=== PATIENT | male | born 1955 | race Caucasian/White ===

== ENCOUNTER 2022-07-28 12:47 | Outpatient (REF) | payer MEDICARE, SELFPAY ==
--- NOTE | ~2022-07-28 | XR_ITS ---
EXAMINATION: XR CHEST CLINICAL INFORMATION: Shortness breath COMPARISON: None TECHNIQUE: 2 views of the chest were obtained. FINDINGS: No significant abnormality is noted involving the heart, lungs, mediastinum, bony thorax or soft tissues. XR/XR chest 2V IMPRESSION: No acute disease.
== END 2022-07-28 12:48 | disposition home or self-care (01) ==
LOC: HO.XRAY 12:47
PROVIDERS: Visit Provider Emergency Medicine
DX: R06.02 Shortness of breath (principal)
CPT/HCPCS: 71046

== ENCOUNTER → 2022-08-24 09:12 | Outpatient (REF) | payer MEDICARE, SELFPAY ==
--- NOTE | 2022-08-24 09:18 | CA_ITS ---
Transthoracic Echocardiogram Patient (Last, First, Middle): Rafa Hamlin F Gender: Male Date of : 1955 Age: 66 Procedure Date: 08/24/2022 Procedure Type: Transthoracic Echocardiogram Location: OP Height: 177.8 cm Weight: 95.26 kg BSA: 2.13 m2 Heart Rate: 60 bpm BP: 132 / 80 mmHg Linseed Oil Order Filler: SB Referring MD: Katarzyna Wakefield NP Symptoms: SOB Study Quality: Adequate w contrast ECG Rhythm: Sinus Conclusions: - The left ventricular systolic function is normal. The visually estimated ejection fraction is between 65-70%. - No obvious valvular pathology seen on this study. Findings Procedure Information Contrast agent, definity, is being given per protocol without apparent complications. Left Ventricle Normal left ventricular cavity size. The left ventricular systolic function is normal. The visually estimated ejection fraction is between 65-70%. There is no evidence of regional wall motion abnormalities. Diastolic function is normal for age. There is mild septal and mild basal asymmetric hypertrophy. Right Ventricle Normal right ventricular cavity size and systolic function. Atria Both atria are normal in size. Aortic Valve There is a normal trileaflet aortic valve. There is no aortic valve stenosis. There is no aortic valve regurgitation. Mitral Valve The mitral valve appears normal. There is no mitral valve regurgitation. There is no mitral valve stenosis. Pulmonic Valve The pulmonic valve is likely normal. Tricuspid Valve Normal tricuspid valve structure. There is trace tricuspid valve regurgitation. There is no evidence of pulmonary hypertension. Great Vessels The asc aorta is normal in size. Venous The inferior vena cava was not well visualized. Possibly normal size/ respiratory variation. Pericardium/Pleural There is no evidence of pericardial effusion. Prior Study Comparison No prior study available for comparison. Recommendations, Care & Conclusions No obvious valvular pathology seen on this study. Measurements 2D Linear Measurements IVSd: 1.29 0.6-0.9/0.6-1.0 cm LVIDd: 4.36 3.9-5.3/4.2-5.9 cm LVIDd Index: 2.05 2.4-3.2/2.2-3.1 cm/m2 LVIDs: 2.78 2.0-3.6 cm LVPWd: 0.86 0.7-1.1 cm LA Diam: 3.60 2.7-3.8/3.0-4.0 cm LAIDs Index: 1.69 1.5-2.3 cm/m2 LV Mass: 200.47 67-162/88-224 g LV Mass Index: 94.12 43-95/49-115 g/m2 LVOT Diam: 2.10 3.0+(-)1.3 cm 2D Systolic Function EF 4C: 79.80 >55% EF 2C: 73.40 >55% EF BiP: 76.60 >55% Mitral Valve MV Pk E: 0.67 MV PK A: 0.84 MV Decel Time: 274.00 E/A: 0.80 E'Lateral: 8.38 E'Medial: 7.40 E/E' Med: 9.10 E/E' Lat: 8.00 PHT: 80.00 MVA PHT: 2.75 Decel [place]: 2.46 Aortic Valve AoV Pk Kike: 1.25 AoV Mn Kike: 0.80 AoV VTI: 0.24 AoV Pk Grad: 6.00 Aov Mn Grad: 3.00 COLE Cont.VTI: 2.64 LVOT LVOT Pk Kike: 0.91 LVOT Mn Kike: 0.62 LVOT VTI: 0.18 LVOT Pk Grad: 3.00 LVOT Mn Grad: 2.00 LVOT Diam: 2.10 LVOT Area: 3.46 Diastolic Function MV Pk E: 0.67 MV Pk A: 0.84 E/A: 0.80 E'Medial: 7.40 E/E' Med: 9.10 E' Laterial: 8.38 E/E' Lat: 8.00 Right Ventricle TAPSE (mm): 19.40 TVS' Kike: 13.70 Tricuspid Valve RA Press: 3.00 Great Vessels Aorta Sinus of Valsalva: 3.20 2.0-3.5 cm Ao Asc: 2.90 2.1-3.4 cm Pulmonary Veins Pulm Vein S/D 1.90 Pulmonary Valve PV Pk Kike: 1.14 Peak PV Grad: 5.00 Updated in Other Vendor System with Status of Final Chuck Osuna MD electronically signed on 08/24/2022 5:34:46 PM with status of Final
== END ==
LOC: HO.CARD 09:12
PROVIDERS: Visit Provider Emergency Medicine
DX: R06.02 Shortness of breath (principal)
CPT/HCPCS: 93306; Q9957

== ENCOUNTER 2024-01-30 11:24 | Outpatient (AMB) | payer MEDICARE, SELFPAY ==
--- NOTE | 2024-01-30 11:30 | A.OFFVIS_ITS ---
Intake Vital Signs 01/30/24 11:52 Height 5 ft 10 in Weight 209 lb BMI 30.0 BP 130/70 Blood Pressure Location Lt brachial Position Sitting Pulse 76 Pulse Source Pulse Oximeter Pulse Oximetry (%) 96 Oxygen Delivery Method Room Air Intake Visit Reasons: NPV-Insomnia - CONF w/ address Intake Note: Patient presets for Insomnia. Waking up during the night and acting out dreams. Snoring and gasping for air. Allergies No Known Allergies Allergy (Verified 01/30/24 11:35) HPI HPI Comments History of Present Illness Details 68 y/o male patient presents for new in- person visit for sleep consultation. Pt reports difficulty staying sleep. He does not have difficulty falling asleep, but wakes up almost every hour. He also reports he is acting out dreams, kicking and can get bruise from kicking. Pt reports loud snoring, gasping, and witnessed apnea spells. Sleep questionnaire: Have you ever been diagnosed with a sleep disorder? No. Have you ever had a sleep study in the past? No. Have you ever been treated for a sleep disorder? No. Do you take medications for a sleep disorder? No. Do you snore? Yes. Do you wake up gasping at night? Yes. Do you have episodes of apneas? Yes. If yes, are they witnessed? Yes. Do you have episodes of nocturnal chest pain or dyspnea? Not really. Do you have difficulty initiating sleep? No. Do you have difficulty maintaining sleep? Yes. Do you wake up tired? Yes. Do you have headaches upon awakening? No. Do you wake up with dry mouth or throat? Yes. Do you have GERD? Not really. Do you have nocturia? Yes. Do you have nocturnal leg cramps? No. Do you have symptoms of restless legs? No. Do you act out your dreams? Yes, kicking a lot. Sleep hygiene questionnaire: What is your usual sleep routine? Usual bedtime is at 11 pm ; Usual wake up time is at 7 am. Do you take naps? Not usually. Is your sleep environment cool, dark, and quiet? Yes. Do you exercise? Yes, walking occasionally. Do you take caffeine or other stimulants? Yes, in the morning. Do you use electronics in bed? Yes, sometimes. What is your work schedule? Retired. Hypersomnolence questionnaire: Do you have daytime tiredness or fatigue? Yes. Do you easily fall asleep when inactive? No. Have you ever had episodes of sudden weakness? No. Have you ever had episodes of sudden weakness associated with strong emotions? No. PFSH Surgical History (Updated 01/30/24 @ 12:06 by Nereyda Erwin CMA) History of hernia repair Hx of appendectomy Family History Father Cancer Hypertension Mother Hypertension Brother COPD (chronic obstructive pulmonary disease) Hypertension Brother Heart disease Social History Household Members: Spouse and Children Housing: Apartment Alcohol intake: current Comment: Ocassionaly and rare Patient Tobacco Use Status: Never used Tobacco Review of Systems Const All systems reviewed & are unremarkable except as noted in HPI and below Physical Exam Vital Signs: Last Vital Signs Pulse 76 01/30/24 11:52 BP 130/70 01/30/24 11:52 Pulse Ox 96 01/30/24 11:52 Oxygen Delivery Method Room Air 01/30/24 11:52 BMI result Body Mass Index 30.0 Const General: cooperative Nutritional Appearance: obese Orientation/consciousness: patient oriented x3 Neck Neck: Yes full ROM and Yes supple Resp Effort & Inspection: normal respiratory effort and able to speak in complete sentences Neuro General: patient oriented x3, gait normal and moves all extremities Cranial nerves: Yes CN's II-XII intact bilaterally Cognition (Neuro): normal cognition Gait exam (Neuro): Normal gait present Motor exam (neuro): 5/5 motor strength present throughout Psych Appearance: grossly normal Mental Status: mental status grossly normal Speech and movement: Normal speech and movement present Affect: normal affect Attitude: cooperative Assessment & Plan Assessment & Plan (1) Loud snoring: Code(s): R06.83 - Snoring (2) Witnessed episode of apnea: Code(s): R06.81 - Apnea, not elsewhere classified (3) Daytime sleepiness: Code(s): R40.0 - Somnolence (4) REM behavioral disorder: Code(s): 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 Will f/u with pt after study to discuss results and appropriate treatment options. Sleep hygiene education provided, limit electronic use before bedtime. Pt to call with any worsening concerns or questions. Orders: Orders RT PSG in-lab sleep study Today G47.52 - REM sleep behavior disorder, R06.81 - Apnea, not elsewhere classified, R06.83 - Snoring, R40.0 - Somnolence Coding Level of Care Code New Pt Level 3 (78852) Diagnoses Loud snoring R06.83 Witnessed episode of apnea R06.81 Daytime sleepiness R40.0 REM behavioral disorder G47.52
[2024-01-30 11:52] VITALS: BP 130/70; PULSE 76; O2SAT 96
== END 2024-01-30 12:06 | disposition home or self-care (01) ==
LOC: HO.HSMS 11:25
PROVIDERS: PCP Family Medicine; Visit Provider Nurse Practitioner Family
DX: R06.83 Snoring (principal); R06.81 Apnea, not elsewhere classified; R40.0 Somnolence; G47.52 REM sleep behavior disorder
CPT/HCPCS: 99203

== ENCOUNTER → 2024-01-30 11:24 | Outpatient (BNVA) | payer MEDICARE, SELFPAY | PROVIDERS: PCP Family Medicine; Visit Provider Nurse Practitioner Family | DX: R06.83 Snoring (principal); R06.81 Apnea, not elsewhere classified; R40.0 Somnolence; G47.52 REM sleep behavior disorder | CPT/HCPCS: 99202 ==

== ENCOUNTER 2024-03-07 09:26 | Outpatient (REF) | payer MEDICARE, SELFPAY ==
[2024-03-07 11:45] LABS: MANUAL DIFF FLAG NO
[2024-03-07 12:07] LABS: Basophils Percent Auto 0.3 % (0-2); Eosinophils Absolute Auto 0.1 X10*3/uL (0.0-0.4); Hematocrit 41.3 % (42.0-52.0); Imm Gran Abs Auto 0.02 X10*3/uL (0.00-0.03); Imm Gran Pct Auto 0.3 % (0.0-0.4); Lymphocytes Absolute Auto 1.8 X10*3/uL (1.2-4.9); Lymphocytes Percent Auto 26.4 % (20-40); Mean Corpuscular HGB Conc 36.3 g/dl (31.0-36.0); Mean Corpuscular Hemoglobin 30.5 pg (27.0-33.0); Mean Corpuscular Volume 84.1 fL (80.0-98.0); Mean Platelet Volume 10.7 fL (9.4-12.4); Monocytes Absolute Auto 0.5 X10*3/uL (0.1-1.2); Monocytes Percent Auto 6.6 % (2-11); Neutrophils Absolute Auto 4.5 x10*3/uL (2.0-8.3); Neutrophils Percent Auto 64.4 % (45-73); Platelet Count 218 X10*3/uL (160-400); Red Blood Count 4.91 X10*6/uL (4.60-5.80); Red Cell Distribution Width 12.2 % (11.0-16.0); White Blood Count 6.9 X10*3/uL (4.8-10.8)
[2024-03-07 12:20] LABS: Alanine Aminotransferase 40 U/L (0-40); Albumin Level 4.4 g/dL (3.5-5.0); Alkaline Phosphatase 51 U/L (39-117); Anion Gap 17 (12-20); Aspartate Amino Transferase 24 U/L (5-37); Bilirubin Total 1.4 mg/dL (0.0-1.0); Blood Urea Nitrogen 17 mg/dL (9-16); Calcium 9.8 mg/dL (8.4-10.2); Carbon Dioxide 28 mmol/L (22-29); Chloride 98 mmol/L (96-108); Cholesterol 107 mg/dL (<200); Estimated Glomerular Filt Rate > 60; Glucose Random 172 mg/dL (60-115); HDL Cholesterol 24 mg/dL (>40); LDL Cholesterol Calculated 49 mg/dL (<100); Potassium 3.2 mmol/L (3.3-5.1); Sodium 140 mmol/L (135-145); Total Protein 7.5 g/dL (6.5-8.0); Triglycerides 172 mg/dL (<150)
[2024-03-07 12:24] LABS: Estimated Average Glucose 223 mg/dL; Hemoglobin A1c % 9.4 % (<6.0)
[2024-03-07 12:32] LABS: Prostate Specific Antigen 2.08 ng/mL (<0.05-4.0)
[2024-03-07 12:34] LABS: Creatinine Urine 233.77 mg/dL; Microalbum/Creatinine Ratio Ur 65.8 ug/mg cr (<30)
[2024-03-07 12:51] LABS: Reflex LDLD? No
[2024-03-11 23:49] LABS: Testosterone, Total 291 ng/dL (250-1100)
== END 2024-03-07 09:27 | disposition home or self-care (01) ==
LOC: HO.HHCL 09:26
PROVIDERS: Visit Provider Family Medicine
DX: I10 Essential (primary) hypertension (principal); N52.9 Male erectile dysfunction, unspecified; E11.9 Type 2 diabetes mellitus without complications; L98.9 Disorder of the skin and subcutaneous tissue, unspecified; E78.5 Hyperlipidemia, unspecified; Z12.5 Encounter for screening for malignant neoplasm of prostate
CPT/HCPCS: 36415; 80053; 80061; 82043; 82570; 83036; 84153; 84403; 84443; 85025

== ENCOUNTER 2024-03-08 11:10 | Outpatient (REF) | payer MEDICARE, SELFPAY ==
[2024-03-08 13:58] LABS: Alanine Aminotransferase 42 U/L (0-40); Albumin Level 4.5 g/dL (3.5-5.0); Alkaline Phosphatase 50 U/L (39-117); Anion Gap 16 (12-20); Aspartate Amino Transferase 28 U/L (5-37); Bilirubin Total 1.5 mg/dL (0.0-1.0); Blood Urea Nitrogen 18 mg/dL (9-16); Calcium 10.2 mg/dL (8.4-10.2); Carbon Dioxide 27 mmol/L (22-29); Chloride 99 mmol/L (96-108); Estimated Glomerular Filt Rate > 60; Glucose Random 171 mg/dL (60-115); Potassium 3.3 mmol/L (3.3-5.1); Sodium 139 mmol/L (135-145); TSH reflex Free T4 1.56 uIU/mL (0.32-4.0); Total Protein 7.7 g/dL (6.5-8.0)
[2024-03-13 14:23] LABS: Testosterone, Total 317 ng/dL (250-1100)
== END 2024-03-08 11:11 | disposition home or self-care (01) ==
LOC: HO.HHCL 11:10
PROVIDERS: Visit Provider Family Medicine
DX: E11.9 Type 2 diabetes mellitus without complications (principal); I10 Essential (primary) hypertension; N52.9 Male erectile dysfunction, unspecified
CPT/HCPCS: 36415; 80053; 84403; 84443

== ENCOUNTER → 2024-03-21 20:30 | Outpatient (REF) | payer MEDICARE, SELFPAY | LOC: HO.SL 20:30 | PROVIDERS: PCP Family Medicine; Visit Provider Nurse Practitioner Family | DX: G47.33 Obstructive sleep apnea (adult) (pediatric) (principal); R40.0 Somnolence; G47.52 REM sleep behavior disorder; R06.83 Snoring | CPT/HCPCS: 95810 ==

== ENCOUNTER → 2024-03-21 22:31 | Outpatient (BNV) | payer MEDICARE, SELFPAY | PROVIDERS: PCP Family Medicine; Visit Provider Psychiatry & Neurology Neurology | DX: G47.33 Obstructive sleep apnea (adult) (pediatric) (principal) | CPT/HCPCS: 95810 ==

== ENCOUNTER 2024-05-09 13:23 | Outpatient (AMB) | payer MEDICARE, SELFPAY ==
--- NOTE | 2024-05-09 13:28 | MHC.OFFVIS ---
Intake Visit Reasons: erectile dysfunction and low testosterone Intake Note: Patient presents today for a follow-up on Erectile Dysfunction & low testosterone: Meds- Sildenafil ( not taking ) Allergies to Antibiotic- No Known Allergies Blood Thinner- None Post Void Residual: 12 mL Allergies No Known Allergies Allergy (Verified 01/30/24 11:35) HPI Comments Details: Jose is a 68-year-old male who is here for evaluation for low testosterone and erectile dysfunction. Validated International index of ED questionnaire is 5 indicating severe erectile dysfunction. Comorbidity-diabetes. He states he is on Metformin. The patient had blood work and 03/08/2024 with total testosterone 291 and 317 respectively. PSA reviewed 03/07/2024--2.08. The patient denies significant issues with urination. Denies family history of prostate cancer. Bladder scan PVR 13 mL. I have discussed repeating testosterone levels as well as checking other labs to evaluate for other metabolic conditions. Information on low testosterone provided. Discussed trial of Cialis 5 mg daily. [facility] Surgical History History of hernia repair Hx of appendectomy Family History Father Cancer Hypertension Mother Hypertension Brother COPD (chronic obstructive pulmonary disease) Hypertension Brother Heart disease Social History Household Members: Spouse and Children Housing: Apartment Alcohol intake: current Comment: Ocassionaly and rare Patient Tobacco Use Status: Never used Tobacco Review of Systems Const All systems reviewed & are unremarkable except as noted in HPI and below Reports no additional complaints Eyes Reports no additional complaints ENT Reports no additional complaints Card Reports no additional complaints Resp Reports no additional complaints GI Reports no additional complaints Reports as per HPI Musc Reports no additional complaints Skin/Breast Reports system reviewed and no additional complaints, except as documented Neuro Reports no additional complaints Psych Reports no additional complaints Endo Reports no additional complaints Phill/Lymph Reports no additional complaints Aller/Immun Reports no additional complaints Physical Exam Const General: healthy appearing, no acute distress and well developed Orientation/consciousness: patient oriented x3 HEENT Head: Yes normocephalic and Yes atraumatic Eyes Conjunctivae: conjunctivae normal Neck Neck: Yes normal visual inspection Chest Chest palpation & inspection: normal inspection of the chest Resp Effort & Inspection: normal respiratory effort Cardio Rate: regular rate GI Inspection: Yes normal to inspection Palpation (GI): Soft to palpation Skin General skin exam: no rashes or lesions noted Neuro General: patient oriented x3 Extrem General: No pedal edema Psych Appearance: grossly normal Affect: normal affect Office Procedures Post Void Residual Post Residual Void Post Void Residual (PVR): 12 [id number]-[id number] Void Residual by ultrasound Results AMB Urinalysis, Automated UA Leukoctes 0 Kelley/uL Last Edit by JERRY Zamudio on 05/09/24 13:55 UA Nitrite Negative Last Edit by Yony Hernandez Mirela on 05/09/24 13:55 UA Urobilinogen 0.2 mg/dL Last Edit by Yony Hernandez [facility] on 05/09/24 13:55 UA Protein 30 mg/dL Last Edit by Yony Hernandez [facility] on 05/09/24 13:55 1+ Yony Hernandez 05/09/24 13:55 UA pH 6.0 Last Edit by Yony Hernandez [facility] on 05/09/24 13:55 UA Blood 0 Darvin/uL Last Edit by Yony Hernandez Mirela on 05/09/24 13:55 UA Specific [place] 1.020 Last Edit by Yony Hernandez [facility] on 05/09/24 13:55 UA Ketone Positive Last Edit by JERRY Zamudio on 05/09/24 13:55 5 mg/dL Yony Hernandez 05/09/24 13:55 UA Bilirubin 1 mg/dL Last Edit by Yony Hernandez [facility] on 05/09/24 13:55 UA Glucose 1000 mg/dL Last Edit by Yony Hernandez Mirela on 05/09/24 13:55 3+ Yony Hernandez 05/09/24 13:55 Results Reviewed Results Reviewed: Laboratory Last Values Urine pH (Auto) 6.0 05/09/24 13:52 Specific [place] (Auto) 1.020 05/09/24 13:52 Urine Protein (Auto) 30 mg/dL 05/09/24 13:52 Glucose (UA)(Auto) 1000 mg/dL 05/09/24 13:52 Urine Ketones (Auto) Positive 05/09/24 13:52 Urine Blood (Auto) 0 Darvin/uL 05/09/24 13:52 Urine Nitrite (Auto) Negative 05/09/24 13:52 Urine Bilirubin (Auto) 1 mg/dL 05/09/24 13:52 Urine Urobilinogen (Auto) 0.2 mg/dL 05/09/24 13:52 Leukocyte Esterase (Auto) 0 Kelley/uL 05/09/24 13:52 Assessment & Plan Assessment & Plan (1) Low testosterone: Code(s): R79.89 - Other specified abnormal findings of blood chemistry Category: Medical (2) Erectile dysfunction: Code(s): N52.9 - Male erectile dysfunction, unspecified Category: Medical Plan Cialis 5 mg daily. Lab work see below Orders: Orders Follicle Stimulating Hormone Today N52.9 - Male erectile dysfunction, unspecified, R79.89 - Other specified abnormal findings of blood chemistry Testosterone, Free/Total Today N52.9 - Male erectile dysfunction, unspecified, R79.89 - Other specified abnormal findings of blood chemistry Estradiol Ultra Sensitive Today N52.9 - Male erectile dysfunction, unspecified, R79.89 - Other specified abnormal findings of blood chemistry Prolactin Today N52.9 - Male erectile dysfunction, unspecified, R79.89 - Other specified abnormal findings of blood chemistry AMB Urinalysis Automated Today Z13.9 - Encounter for screening, unspecified AMB Post Void Residual by ultrasound Today N39.8 - Other specified disorders of urinary system Lutenizing Hormone Today N52.9 - Male erectile dysfunction, unspecified, R79.89 - Other specified abnormal findings of blood chemistry Glucose Fasting Today N52.9 - Male erectile dysfunction, unspecified, R79.89 - Other specified abnormal findings of blood chemistry Hemoglobin A1c Today N52.9 - Male erectile dysfunction, unspecified, R79.89 - Other specified abnormal findings of blood chemistry Medications: New tadalafil (Cialis) 5 mg PO DAILY 30 tabs 2RF Patient Instructions: The patient had an opportunity to ask questions regarding treatment plan. The patient expressed understanding and agreement with the above treatment plan. The patient is aware they should contact our office by phone for worsening of their current condition or the appearance of new symptoms. Compliance is encouraged with any medications and followup testing that is ordered. It is a privilege to be allowed the opportunity to participate in the urologic care of your patient. If you have any questions or concerns regarding treatment for the above conditions please do not hesitate to contact me. The office telephone contact is [phone]. This note is constructed in part using voice recognition software. While every effort has been made to ensure accuracy credit interviewer errors may have been included. Yours sincerely, Malik Cabrera MD Coding Level of Care Code New Pt Level 4 (95275) Diagnoses Low testosterone R79.89 Erectile dysfunction N52.9 CPT Codes Post Residual Void - PVR CPT Code: 44246-Jlwc Void Residual by ultrasound ([id number])
== END 2024-05-09 14:37 | disposition home or self-care (01) ==
PROVIDERS: PCP Family Medicine; Visit Provider Urology
DX: R79.89 Other specified abnormal findings of blood chemistry (principal); N52.9 Male erectile dysfunction, unspecified; Z13.9 Encounter for screening, unspecified
CPT/HCPCS: 99204

== ENCOUNTER → 2024-05-09 13:23 | Outpatient (BNVA) | payer MEDICARE, SELFPAY | PROVIDERS: PCP Family Medicine; Visit Provider Urology | DX: N52.9 Male erectile dysfunction, unspecified (principal); E29.1 Testicular hypofunction | CPT/HCPCS: 51798; 81003; 99202 ==

== ENCOUNTER 2024-06-01 11:02 | Outpatient (AMB) | payer MEDICARE, SELFPAY ==
--- NOTE | 2024-06-01 11:05 | MHC.OFFVIS ---
Vital Signs 06/01/24 11:08 Height 5 ft 10 in Weight 203 lb 6 oz BMI 29.2 BP 130/72 Blood Pressure Location Rt brachial Position Sitting Pulse 87 Pulse Source Pulse Oximeter Pulse Oximetry (%) 94 Oxygen Delivery Method Room Air Intake Visit Reasons: f/u Insomnia-CONFIRMED Intake Note: Patient presents for f/u. Allergies No Known Allergies Allergy (Verified 06/01/24 11:08) Medication List - Last Reconciled 06/01/24 by KIARA Hansen amlodipine 10 mg PO DAILY atorvastatin 10 mg PO BEDTIME chlorthalidone 25 mg PO DAILY lisinopril 40 mg PO DAILY melatonin 3 mg PO BEDTIME PRN paroxetine HCl 20 mg PO DAILY sildenafil 50 mg PO DAILY PRN tadalafil (Cialis) 5 mg PO DAILY HPI Comments Details: 68-yr-old male presents for follow-up visit follwoing in-lab sleep study.. Since the last visit, pt underwent in-lab PSG, which showed severe SHARMAINE w/ AHI 52/hr (predominantly d/t hypopneas) and O2 torres 83% and average SpO2 91%. Pt was referred for f/u in-lab PAP titration PSG, however pt does not have an appt for this yet. He states he normally sleeps a bit better than he did during the sleep study. He continues to have snoring, fragmented sleep, and daytime tiredness. He states he has not had any parasomnias in several months- in the past has kicked the wall while dreaming that he was being attacked. [facility] Surgical History History of hernia repair Hx of appendectomy Family History Father Cancer Hypertension Mother Hypertension Brother COPD (chronic obstructive pulmonary disease) Hypertension Brother Heart disease Social History Household Members: Spouse and Children Housing: Apartment Alcohol intake: current Comment: Ocassionaly and rare Patient Tobacco Use Status: Never used Tobacco Review of Systems Const All systems reviewed & are unremarkable except as noted in HPI and below Physical Exam Vital Signs: Last Vital Signs Pulse 87 06/01/24 11:08 BP 130/72 06/01/24 11:08 Pulse Ox 94 06/01/24 11:08 Oxygen Delivery Method Room Air 06/01/24 11:08 BMI result Body Mass Index 29.2 Const General: no acute distress Orientation/consciousness: patient oriented x3 Resp Effort & Inspection: able to speak in complete sentences Neuro General: patient oriented x3 Psych Mental Status: mental status grossly normal Speech and movement: Clear speech present Attitude: cooperative Results Reviewed Results Reviewed: In-lab PSG report- see HPI. Assessment & Plan Assessment & Plan (1) Severe obstructive sleep apnea: Code(s): G47.33 - Obstructive sleep apnea (adult) (pediatric) Category: Medical (2) Parasomnia: Code(s): G47.50 - Parasomnia, unspecified Category: Medical Plan Pt advised to undergo f/u in-lab PAP titration study to determine optimal PAP tx settings. Monitor parasomnias. Monitor if parasomnias resolve w/ treating severe SHARMAINE. If parasomnias persist with optimal SHARMAINE tx, will monitor for s/s neurodegenerative d/o s/s. Keep area around bed clear of clutter. May need to consider moving bed further away from the wall. May continue Melatonin. Coding Level of Care Code Est Pt Level 4 (71871) Diagnoses Severe obstructive sleep apnea G47.33 Parasomnia G47.50
[2024-06-01 11:08] VITALS: BP 130/72; PULSE 87; O2SAT 94; BMI 29.2
== END 2024-06-01 11:48 | disposition home or self-care (01) ==
PROVIDERS: PCP Family Medicine; Visit Provider Nurse Practitioner Family
DX: G47.33 Obstructive sleep apnea (adult) (pediatric) (principal); G47.50 Parasomnia, unspecified
CPT/HCPCS: 99214

== ENCOUNTER → 2024-06-01 11:02 | Outpatient (BNVA) | payer MEDICARE, SELFPAY | PROVIDERS: PCP Family Medicine; Visit Provider Nurse Practitioner Family | DX: G47.33 Obstructive sleep apnea (adult) (pediatric) (principal); G47.50 Parasomnia, unspecified | CPT/HCPCS: 99212 ==

== ENCOUNTER → 2024-07-18 20:30 | Outpatient (REF) | payer MEDICARE, SELFPAY | LOC: HO.SL 20:30 | PROVIDERS: Visit Provider Nurse Practitioner Family | DX: G47.33 Obstructive sleep apnea (adult) (pediatric) (principal) | CPT/HCPCS: 95811 ==

== ENCOUNTER → 2024-07-18 22:39 | Outpatient (BNV) | payer MEDICARE, SELFPAY | PROVIDERS: Visit Provider Psychiatry & Neurology Neurology | DX: G47.33 Obstructive sleep apnea (adult) (pediatric) (principal) | CPT/HCPCS: 95811 ==

== ENCOUNTER 2024-12-27 09:26 | Outpatient (AMB) | payer MEDICARE, SELFPAY ==
[2024-12-27 09:33] VITALS: BP 130/62; PULSE 88; O2SAT 94; BMI 28.9
--- NOTE | 2024-12-27 09:33 | A.OFFVIS_ITS ---
Vital Signs 12/27/24 09:33 Height 5 ft 10 in Weight 201 lb 4 oz BMI 28.9 BP 130/62 Blood Pressure Location Rt brachial Position Sitting Pulse 88 Pulse Source Pulse Oximeter Pulse Oximetry (%) 94 Oxygen Delivery Method Room Air Intake Visit Reasons: 6 Month F/U Intake Note: Patient presents for follow up SHARMAINE Allergies No Known Allergies Allergy (Verified 12/27/24 09:38) HPI Comments Details: 68-yr-old male presents for follow-up visit follwoing in-lab sleep PSG study.. 03/21/2024 in-lab PSG, which showed severe SHARMAINE w/ AHI 52/hr (predominantly d/t hypopneas) and O2 torres 83% and average SpO2 91%. 07/18/2024 f/u in-lab PAP titration PSG, showed stabilization of oxygenation in breathing on CPAP, best at CPAP 12 cm H2O with a Resmed medium N20 mask. Patient states he tolerated the in-lab PAP titration study well, however he did afterward that his nasal passages were more open is if pressure was strong. He has not yet started on CPAP therapy, however he is interested in each starting CPAP. States his son uses CPAP and finds great benefit from it. Thus, discussed that we could start CPAP at a lower pressure, as breathing and oxygenation levels began to stabilize at a lower pressure even at 8 cm H2O, however patient would like to just start at CPAP 12 cm H2O. So I suggested instead that we start CPAP 12 cm H2O with EPR set to 3, in hopes this will increase the likelihood that he will tolerate CPAP therapy, which patient agreed to. He continues to have snoring, fragmented sleep, and daytime tiredness. He has not had any parasomnias in several months- in the past has kicked the wall while dreaming that he was being attacked. [facility] Surgical History Status post surgical removal of malignant neoplasm of skin History of hernia repair Hx of appendectomy Family History Father Cancer Hypertension Mother Hypertension Brother COPD (chronic obstructive pulmonary disease) Hypertension Brother Heart disease Social History Household Members: Spouse and Children Housing: Apartment Alcohol intake: current Comment: Ocassionaly and rare Patient Tobacco Use Status: Never used Tobacco Physical Exam Vital Signs: Last Vital Signs Pulse 88 12/27/24 09:33 BP 130/62 12/27/24 09:33 Pulse Ox 94 12/27/24 09:33 Oxygen Delivery Method Room Air 12/27/24 09:33 BMI result Body Mass Index 28.9 Const General: no acute distress Orientation/consciousness: patient oriented x3 Resp Effort & Inspection: able to speak in complete sentences Neuro General: patient oriented x3 Psych Mental Status: mental status grossly normal Speech and movement: Clear speech present Attitude: cooperative Assessment & Plan Assessment & Plan (1) Severe obstructive sleep apnea: Comment: 03/21/2024 in-lab PSG, severe SHARMAINE w/ AHI 52/hr (predominantly d/t hypopneas), O2 torres 83% and average SpO2 91%. Code(s): G47.33 - Obstructive sleep apnea (adult) (pediatric) Category: Medical (2) Parasomnia: Code(s): G47.50 - Parasomnia, unspecified Category: Medical Qualifiers: Parasomnia type: unspecified parasomnia Qualified Code(s): G47.50 - Parasomnia, unspecified Plan Reviewed f/u in-lab PAP titration study. Start CPAP 12 cmH2O w/ EPR 3 nightly > 4 hours. New CPAP order written today. Clean CPAP machine and supplies routinely. Change CPAP supplies routinely. Use distilled water in CPAP water reservoir. Pt to contact us or respiratory company with any questions or concerns. Continue to monitor parasomnias. If parasomnias persist with optimal SHARMAINE tx, will monitor for s/s neurodegenerative d/o s/s. Keep area around bed clear of clutter. May need to consider moving bed further away from the wall. May continue Melatonin. Pt to follow-up in 3-4 months or sooner prn. Coding Level of Care Code Est Pt Level 3 (74499) Diagnoses Severe obstructive sleep apnea G47.33 Parasomnia, unspecified type G47.50 Parasomnia type: unspecified parasomnia
--- OUTSIDE RECORDS SUMMARY | 2024-12-27 12:33 | XMS_ITS | Continuity of Care Document ---
Author Organization [facility] Shruthi cyndy Address [address] [place] [address] [address] [place] [address]- Care Team Providers Care Slotter Operator Name Role Phone Stephen MAC, Argenis Primary Care Physician [phone] Date(s): 12/18/24 - 12/25/24 [facility] [address] [place] [id number]- Attending Physician: Bossman Vaughan MD Referring Physician: Argenis Mitchell MD Encounter Type: Office Visit Allergies, Adverse Reactions, Alerts No Known Allergies Medications amLODIPine 5 mg oral tablet 90 each, 0 Refill(s), TAKE 1 TABLET BY MOUTH EVERY DAY IN THE MORNING, 0 Refills, 08/22/24 1:26:00 PM EDT, Partial fill upon patient request if the prescription is for a schedule II opioid drug. Start Date: 08/22/24 Status: Ordered Repeat number: 1 atorvastatin 10 mg oral tablet 100 each, 0 Refill(s), TAKE 1 TABLET BY MOUTH EVERYDAY AT BEDTIME, 0 Refills, 08/22/24 1:26:00 PM EDT, Partial fill upon patient request if the prescription is for a schedule II opioid drug. Start Date: 08/22/24 Status: Ordered Repeat number: 1 chlorthalidone 50 mg oral tablet 1 tablet = 50 mg, By Mouth, Daily, # 90 tablet, 0 Refills, Maintenance, 03/29/22 2:09:00 PM EDT, Tablet, [id number], Partial fill upon patient request if the prescription is for a schedule II opioid drug., 177, cm, 03/29/22 13:56:00 EDT, Height, 96.6, kg, 03/29/22 13:56:00 EDT, Dry Weight Start Date: 03/29/22 Status: Ordered Quantity: 90.0 Unit: tablet Repeat number: 1 Indication: Encounter for issue of repeat prescription lisinopril 40 mg oral tablet 1 tablet = 40 mg, By Mouth, Daily, # 90 tablet, 0 Refills, Maintenance, 03/29/22 2:10:00 PM EDT, Tablet, [id number], Partial fill upon patient request if the prescription is for a schedule II opioid drug., 177, cm, 03/29/22 13:56:00 EDT, Height, 96.6, kg, 03/29/22 13:56:00 EDT, Dry Weight Start Date: 03/29/22 Status: Ordered Quantity: 90.0 Unit: tablet Repeat number: 1 MetFORMIN (Eqv-Glucophage XR) 500 mg oral tablet, extended release 360 each, 0 Refill(s), TAKE 2 TABLETS BY MOUTH TWICE A DAY WITH MEAL, 0 Refills, 08/22/24 1:27:00 PMEDT, Partial fill upon patient request if the prescription is for a schedule II opioid drug. Start Date: 08/22/24 Status: Ordered Repeat number: 1 PARoxetine 20 mg oral tablet 90 each, 0 Refill(s), TAKE 1 TABLET BY MOUTH EVERYDAY AT BEDTIME, Refills 0, 08/22/24 1:27:00 PM EDT, Partial fill upon patient request if the prescription is for a schedule II opioid drug. Start Date: 08/22/24 Status: Ordered Repeat number: 1 Vital Signs Most recent to oldest [Reference Range]: 1 Height 178 cm (12/18/24 10:38 AM) Weight 91 kg (12/18/24 10:38 AM) Body Mass Index [18.5-24.99 kg/m2] 28.72 kg/m2 *H* (12/18/24 10:38 AM) Weight Obtained Via Standing scale (12/18/24 10:38 AM) Social History Social History Type Response Smoking Status Never (less than 100 in lifetime) entered on: 12/18/24 Sex Sex Representation Male (finding) Patient Care team information Care Team Personnel Name: Ayana Soriano RN Position: S RN Member Role: Primary Care Nurse Name: Argenis Mitchell MD Position: [facility] Outreach Member Role: PCP Address: [address] [place], [place] [id number] Telecom: Care Team Related Persons Name: YASMIN REYES Insurance Providers Guarantor name: [employer] Plan Information #: 1 Payer: [facility] ADV O Member Number: [id number] Policy Number: [employer] Group Number: [id number] Health Plan Information #: 2 Payer: [employer] ADV O Member Number: [id number] Policy Number: [employer] Group Number: NA
--- OUTSIDE RECORDS SUMMARY | 2024-12-27 12:33 | XMS_ITS | Data Portability ---
Author Organization [facility], , [facility] Address [address] [place] [address] Care Team Providers Care Aligner Name Role Phone LAURYN CRUZ Primary Care Provider [phone] YAYA HARRISON Database Development Project Manager [phone] ALFRED RENEE Psychologist RICHARD ABRAHAM Phys. Med. & Rehab [phone] SAMUEL WITT Orthopedic Surgeon [phone] LOREN JULIAN General Surgeon [phone] Assessment No assessment recorded. Plan of Treatment Reminders Order Date Submit Date Provider Last Modified By Organization Details Last Modified Time Details Appointments None recorded. Lab CMP, serum or plasma 2019 020 [facility], [address] [place] [address], [address], 0 15:58:28 BNP (B-type natriureti c peptide), serum or plasma 2019 020 [facility], [address] [place] [address], [address], 0 13:36:26 CBC 2019 020 [facility], [address] [place] [address], [address], 0 15:40:59 TSH, serum or plasma 2020 021 [facility], [address] [place] [address], [address], 1 12:25:30 testostero ne, free + total, serum 2020 021 [facility], [address] [place] [address], [address], 1 13:55:33 CMP, serum or plasma 2020 021 [facility], [address] [place] [address], [address], 1 11:06:03 lipid panel, serum 2020 021 [facility], [address] [place] [address], [address], 11:06:06 Referral None recorded. Procedures colonoscop y procedure (PROC) [email or web address] [place] [address] Gastroenterol ogy, [address] [place] [address], [address], 1 08:48:30 Surgeries None recorded. Imaging None recorded. Medication Orders paroxetine 20 mg tablet 2019 020 [facility] [address] [place], [address], 0 12:13:11 sildenafil 100 mg tablet 2020 021 [facility] [address] [place], [address], 1 16:16:39 Patient Targets Encounter Date Encounter Id Patient Goals Patient Target Last Modified By Organization Details Last Modified Time 05/07/2021 [id number] Blood Pressure 130/80 Not available Not available Not available Cholesterol , LDL less than 130 Not available Not available Not available Patient Instructions Encounter Date Encounter Id Patient Instructions Last Modified By Organization Details Last Modified Time 06/10/2020 [id number] After a discussi on of treatment options, which included consideration of best practices and patient preferences, the following treatment plan and objectives were adopted: as above. [email or web address] Not available 06/10/2020 10:27:38 07/04/2020 [id number] After a discussi on of treatment options, which included consideration of best practices, patient preferences, and the patient? s individual lifestyle and treatment goals, as well as consideration and attempted mitigation of any barriers to meeting the patient? s goals, the following treatment plan and objectives were adopted: as above [email or web address] Not available 07/04/2020 21:31:41 05/07/2021 [id number] preventing falls : care instructions [email or web address] Not available 05/07/2021 16:16:23 hearing loss: ca re instructions sesrick Not available 05/07/2021 16:16:23 advance directives: care instructions [email or web address] Not available 05/07/2021 16:16:24 well visit, over 65: care instructions sesrick Not available 05/07/2021 16:16:23 continue daily walking and consider Mediterranean diet sesrick Not available 05/10/2021 20:40:20 Prostate Cancer Screening using PSA was discussed. The U.S. Preventive Services Task Force advises not to make a PSA test a part of the standard exam for men ages 55-69. Instead they recommend the uncertainties about the test be discussed and ordered only if a patient still wants it. Over their lifetimes as many as 50% or more of men will develop prostate cancer but only 2% of men will of prostate cancer. For men who chose to be screened for prostate cancer if 1000 men are screened with a psa test over a 15 year period there might be 1-2 deaths prevented however 235 men will have a biopsy with risk of infection, bleeding and Pain, 100 men will have their prostate removed by surgery or radiation treatments and 60-70 of those will suffer incontinence or impotence. There is also the risk of anesthesia or radiation complications. For men over 70 prostate cancer screening offered no benefit and risked pain, worry, expense and possibly shorter life expectancy. CCM: The provider and patient discussed the Chronic Care Management program, including the services provided, and any fees associated with them. blepage Not available 05/07/2021 08:32:00 Reason for Referral None Reported. 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 administrator-P CR, respi rator y speci men covid testing status In-yolie se testin g being perfor med Not Available [facility] (Outpatient) [address] [place], [address], 06/12/2020 11:32:02 06/12/20 20 06/12/2020 SARS CoV 2 RNA (COVI D-19) , QL, 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 Negat lyric resul ts must be combi danis with clini adrien obser vatio ns, patie nt histo ry, and epide miolo gical infor matio n. This test has been autho rized by the FDA under an Emerg ency Use Autho rizat ion (EUA) for use by 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 Not Available [facility] (Outpatient) [address] [place], [address], 06/12/2020 14:50:30 07/04/20 20 07/04/2020 CBC WBC 8.40 K/??L 4.23-9 .07 Not Available [address], [address], 07/04/2020 15:40:59 07/04/20 20 07/04/2020 CBC RBC 4.60 M/??L 4.63-6 .08 low Not Available [address], [address], 07/04/2020 15:40:59 07/04/20 20 07/04/2020 CBC HGB 14.3 g/dL 13.7-1 7.5 Not Available [address], [address], 07/04/2020 15:40:59 07/04/20 20 07/04/2020 CBC HCT 40.4 % 40.1-5 1.0 Not Available [address], [address], 07/04/2020 15:40:59 07/04/20 20 07/04/2020 CBC MCV 87.8 fL 79.0-9 2.2 Not Available [address], [address], 07/04/2020 15:40:59 07/04/20 20 07/04/2020 CBC MCH 31.1 pg 25.7-3 2.2 Not Available [address], [address], 07/04/2020 15:40:59 07/04/20 20 07/04/2020 CBC MCHC 35.4 g/dL 32.3-3 6.5 Not Available [address], [address], 07/04/2020 15:40:59 07/04/20 20 07/04/2020 CBC plt 195 K/??L 163-33 7 Not Available [address], [address], 07/04/2020 15:40:59 07/04/20 20 07/04/2020 CBC MPV 10.8 fL 9.4-12 .4 Not Available [address], [address], 07/04/2020 15:40:59 07/04/20 20 07/04/2020 CBC neut% 61.1 % 34.0-6 7.9 Not Available [address], [address], 07/04/2020 15:40:59 07/04/20 20 07/04/2020 CBC neut# 5.13 1.78-5 .38 Not Available [address], [address], 07/04/2020 15:40:59 07/04/20 20 07/04/2020 CBC lymph % 27.5 % 21.8-5 3.1 Not Available [address], [address], 07/04/2020 15:40:59 07/04/20 20 07/04/2020 CBC lymph # 2.31 K/??L 1.32-3 .57 Not Available [address], [address], 07/04/2020 15:40:59 07/04/20 20 07/04/2020 CBC mono% 9.3 % 5.3-12 .2 Not Available [address], [address], 07/04/2020 15:40:59 07/04/20 20 07/04/2020 CBC mono# 0.78 0.30-0 .82 Not Available [address], [address], 07/04/2020 15:40:59 07/04/20 20 07/04/2020 CBC eo% 1.5 % 0.8-7. 0 Not Available [address], [address], 07/04/2020 15:40:59 07/04/20 20 07/04/2020 CBC eo# 0.13 0.04-0 .54 Not Available [address], [address], 07/04/2020 15:40:59 07/04/20 20 07/04/2020 CBC baso% 0.2 % 0.2-1. 2 Not Available [address], [address], 07/04/2020 15:40:59 07/04/20 20 07/04/2020 CBC baso# 0.02 0.00-0 .08 Not Available [address], [address], 07/04/2020 15:40:59 07/04/20 20 07/04/2020 CBC RDW-CV 12.2 % 11.6-1 4.4 Not Available [address], [address], 07/04/2020 15:40:59 07/04/20 20 07/04/2020 CBC Ig% 0.400 % 0.000- 1.500 Ig % >0.5 Indic ates possi ble Left Shift Not Available [address], [address], 07/04/2020 15:40:59 07/04/20 20 07/04/2020 CBC Ig# 0.030 0.000- 0.093 Not Available [address], [address], 07/04/2020 15:40:59 07/04/20 20 07/04/2020 CBC NRBC% 0.0 % 0.0-0. 2 Not Available [address], [address], 07/04/2020 15:40:59 07/04/20 20 07/04/2020 CBC NRBC# 0.000 0.000- 0.012 Not Available [address], [address], 07/04/2020 15:40:59 07/04/20 20 07/04/2020 CMP, serum or plasm a glucose 139 mg/dL 70-100 high Not Available [address], [address], 07/04/2020 15:58:28 07/04/20 20 07/04/2020 CMP, serum or plasm a BUN 27 mg/dL 7-18 high Not Available [address], [address], 07/04/2020 15:58:28 07/04/20 20 07/04/2020 CMP, serum or plasm a creatinine 1.2 mg/dL 0.8-1. 3 Not Available [address], [address], 07/04/2020 15:58:28 07/04/20 20 07/04/2020 CMP, serum or plasm a B/C 22.5 ratio Not Available [address], [address], 07/04/2020 15:58:28 07/04/20 20 07/04/2020 CMP, serum or plasm a GFR -non 64.8 mL/mi n Recom raghu d GFR by the Natio nal Kidne y Found ation >60 mL/mi n/1.7 3m2 - Niyah l <60 mL/mi n/1.7 3m2 - Chron ic Kidne y Disea se <15 mL/mi n/1.7 3m2 - Kidne y Failu re Not Available [address], [address], 07/04/2020 15:58:28 07/04/20 20 07/04/2020 CMP, serum or plasm a GFR - if 78.4 mL/mi n For Afric an Ameri can patie nts: Resul ts Multi plied by 1.21 Not Available [address], [address], 07/04/2020 15:58:28 07/04/20 20 07/04/2020 CMP, serum or plasm a sodium 142 mmol/ L 136-14 5 Not Available [address], [address], 07/04/2020 15:58:28 07/04/2007/04/2020 CMP, serum or plasm a potassium 3.5 mmol/ L 3.5-5. 1 Not Available [address], [address], 07/04/2020 15:58:28 07/04/20 20 07/04/2020 CMP, serum or plasm a chloride 102 mmol/ L 96-107 Not Available [address], [address], 07/04/2020 15:58:28 07/04/2007/04/2020 CMP, serum or plasm a anion gap 8.1 5.0-15 .0 Not Available [address], [address], 07/04/2020 15:58:28 07/04/2007/04/2020 CMP, serum or plasm a CO2 32 mmol/ L 21-32 Not Available [address], [address], 07/04/2020 15:58:28 07/04/2007/04/2020 CMP, serum or plasm a calcium 9.7 mg/dL 8.5-10 .3 Not Available [address], [address], 07/04/2020 15:58:28 07/04/2007/04/2020 CMP, serum or plasm a total protein 7.1 g/dL 6.4-8. 2 Not Available [address], [address], 07/04/2020 15:58:28 07/04/2007/04/2020 CMP, serum or plasm a albumin 4.0 g/dL 3.4-5. 0 Not Available [address], [address], 07/04/2020 15:58:28 07/04/20 20 07/04/2020 CMP, serum or plasm a globulin 3.1 g/dL Not Available [address], [address], 07/04/2020 15:58:28 07/04/20 20 07/04/2020 CMP, serum or plasm a A/G 1.3 ratio 0.8-2. 0 Not Available [address], [address], 07/04/2020 15:58:28 07/04/20 20 07/04/2020 CMP, serum or plasm a total bilirubin 1.00 mg/dL 0.00-1 .00 Not Available [address], [address], 07/04/2020 15:58:28 07/04/20 20 07/04/2020 CMP, serum or plasm a AST 39 U/L 0-37 high Not Available [address], [address], 07/04/2020 15:58:28 07/04/20 20 07/04/2020 CMP, serum or plasm a ALT 93 U/L 6-63 high Not Available [address], [address], 07/04/2020 15:58:28 07/04/20 20 07/04/2020 CMP, serum or plasm a alk. phos. 42 U/L 50-136 low Not Available [address], [address], 07/04/2020 15:58:28 07/04/20 20 07/07/2020 pro BNP (pro B-typ e natri ureti c pepti de), serum or plasm a B type natriuretic peptide (BNP) 22 pg/mL <100 normal BNP level s incre ase with age in the gener al popul ation with the highe st value s seen in indiv idual s great er than 75 years of age. Refer ence: J. Am. Amanda. Cardi ol. 2002; 40:97 6-982 . Not Available [facility] [place] [facility] [address], [place], [address], 07/07/2020 13:36:26 07/04/20 20 07/07/2020 pro BNP (pro B-typ e natri ureti c pepti de), serum or plasm a nt probnp 49 pg/mL normal For Heart Failu re (HF) diagn osis, refer ence range s in patie nts with dyspn ea are based on Chelsea WALKER, et al., J Am Amanda Cardi ol. 2018; 71:11 91-12 00. 18-49 years : < or = 300 pg/mL Niyah l, HF unlik bette > or = 450 pg/mL High proba bilit y of HF 50-75 years : < or = 300 pg/mL Niyah l, HF unlik bette > or = 900 pg/mL High proba bilit y of HF >75 years : < or = 300 pg/mL Niyah l, HF unlik bette > or = 1800 pg/mL High proba bilit y of HF For patie nts with coron bisi heart disea se, the optim al risk categ ory cut point s for incid ent HF or CVD (<253 pg/mL men, <372 pg/mL women ) are based on Mónica Garcia. et al., J Am Amanda Cardi ol. 2007; 50:20 5-14. For patie nts with exist ing HF, the optim al risk categ ory cut point for HF progr essio n (<300 pg/mL ) is based on Estella OTERO, et al., Clin Bioch em. 2010; 43:14 05-10 . For addit ional infor kelli reynolds e refer to http: //nilo griffith stdia gnost ics.c om/fa q/FAQ (This link is being provi ded for infor sb robert/ reagan hernandez purpo ses only. ) Not Available [facility] [place] [facility] [address], [place], [place], [address], 07/07/2020 14:02:39 06/20/20 21 06/20/2021 COVID -19 PCR ORDER covid testing status Speci men recei mady in [facility] lab. Resul ts shoul d be avail able withi n 24 to 48 hrs. Not Available [facility] (Out[facility]) [address] [place], [address], 06/20/2021 18:55:02 06/20/20 21 06/20/2021 COVID -19 PCR ORDER symptomatic? YES Not Available [facility] (Outpatient) [address] [place], [address], 06/20/2021 18:55:02 06/20/20 21 06/21/2021 COVID -19 RT-PC R specimen source AN SWAB Not Available [facility] (Outpatient) [address] [place], [address], 06/21/2021 11:53:34 06/20/20 21 06/21/2021 COVID -19 RT-PC R sars-cov 2 (covid-19) PCR NEGATI VE negati ve (NOTE ) 2019- novel Coron aviru s (2018 -nCoV ) not detec seb by the qRT-P CR assay . Consi mario testi ng for other respi rator y virus es or re-co llect ing for 2019- nCoV testi ng. Note: Optim um timin g for peak viral level s durin g infec tions cause d by 2019- nCoV have not been deter mined . Colle ction of multi ple speci mens from the same patie nt may be neces fili to detec t the virus . Metho ds and Limit ation s: This Labor atory Devel oped Test is a high- throu ghput versi on of the CDC 2019- nCoV Realt jeannette RT-PC R test and has been valid ated in accor dance with the ale nce issue d by the Kisha rosario of [facility] (Feb 13) and the FDA (Jan 26, 2020) . This test has not been FDA clear ed or appro mady but is being run under the FDAs Emerg ency Use Autho rizat ion (EUA) mecha nism. This test was valid ated for dry nasal swabs . Metho d: RNA is isola seb from respi rator y speci mens using UniQure X-96 Viral RNA [place] tion Kits (Ther mo Cuatee r Scimariangel regan ); RNA is rever se trans cribe d to cDNA, and subse quent ly ampli fied in a Real- Time PCR Instr ument (Appl ied Biosy stems ViiA7 ). This syste m provi devon quali tativ e detec tion of nucle ic acid from SARS- CoV-2 . For more detai led infor matanne-marie n on the test metho ds and limit ation s as well as for Fact Sheet s for both Patie nts and Healt hcare provi ders see https ://br oad.i o/cov id19t est-f actsh eetv3 . Posit lyric resul ts are indic ative of activ e infec tion with SARS- CoV-2 but do not rule out bacte rial infec tion or co-in fecti on with other virus es. The agent detec seb may not be the defin ite cause of disea se. Negat lyric resul ts do not precl ude SARS- CoV-2 infec tion and shoul d not be used as the sole basis for patie nt manag ement decis ions. False negat lyric resul ts may occur if ampli ficat ion inhib itors are prese nt in the speci men or if inade quate numbe rs of organ isms are prese nt in the speci men due to impro per colle ction , trans jeffry tion, or handl ing. If the virus mutat es in the RT-PC R targe t regio n, SARS- CoV-2 may not be detec seb or may be detec seb less predi ctabl y. Inhib itors or other types of inter feren ce may produ ce a false negat lyric resul t. Not Available [facility] (Outpatient) [address] [place], [address], 06/21/2021 11:53:34 07/30/20 21 07/31/2021 COMP. METAB OLIC PANEL glucose 148 mg/dL 70-100 high Not Available [address], [address], 07/31/2021 11:06:00 07/30/20 21 07/31/2021 COMP. METAB OLIC PANEL BUN 21 mg/dL 7-18 high Not Available [address], [address], 07/31/2021 11:06:00 07/30/20 21 07/31/2021 COMP. METAB OLIC PANEL creatinine 1.4 mg/dL 0.8-1. 3 high Not Available [address], [address], 07/31/2021 11:06:00 07/30/20 21 07/31/2021 COMP. METAB OLIC PANEL B/C 15.0 ratio Not Available [address], [address], 07/31/2021 11:06:00 07/30/20 21 07/31/2021 COMP. METAB OLIC PANEL GFR -non 54.1 mL/mi n Recom raghu d GFR by the Natio nal Kidne y Found ation >60 mL/mi n/1.7 3m2 - Niyah l <60 mL/mi n/1.7 3m2 - Chron ic Kidne y Disea se <15 mL/mi n/1.7 3m2 - Kidne y Failu re Not Available [address], [address], 07/31/2021 11:06:00 07/30/20 21 07/31/2021 COMP. METAB OLIC PANEL GFR - if 65.4 mL/mi n For Afric an Ameri can patie nts: Resul ts Multi plied by 1.21 Not Available [address], [address], 07/31/2021 11:06:00 07/30/20 21 07/31/2021 COMP. METAB OLIC PANEL sodium 141 mmol/ L 136-14 5 Not Available [address], [address], 07/31/2021 11:06:00 07/30/20 21 07/31/2021 COMP. METAB OLIC PANEL potassium 3.2 mmol/ L 3.5-5. 1 low Not Available [address], [address], 07/31/2021 11:06:00 07/30/20 21 07/31/2021 COMP. METAB OLIC PANEL chloride 101 mmol/ L 96-107 Not Available [address], [address], 07/31/2021 11:06:00 07/30/20 21 07/31/2021 COMP. METAB OLIC PANEL anion gap 9.1 5.0-15 .0 Not Available [address], [address], 07/31/2021 11:06:00 07/30/20 21 07/31/2021 COMP. METAB OLIC PANEL CO2 31 mmol/ L 21-32 Not Available [address], [address], 07/31/2021 11:06:00 07/30/20 21 07/31/2021 COMP. METAB OLIC PANEL calcium 9.6 mg/dL 8.5-10 .3 Not Available [address], [address], 07/31/2021 11:06:00 07/30/20 21 07/31/2021 COMP. METAB OLIC PANEL total protein 7.3 g/dL 6.4-8. 2 Not Available [address], [address], 07/31/2021 11:06:00 07/30/20 21 07/31/2021 COMP. METAB OLIC PANEL albumin 4.1 g/dL 3.4-5. 0 Not Available [address], [address], 07/31/2021 11:06:00 07/30/20 21 07/31/2021 COMP. METAB OLIC PANEL globulin 3.2 g/dL Not Available [address], [address], 07/31/2021 11:06:00 07/30/20 21 07/31/2021 COMP. METAB OLIC PANEL A/G 1.3 ratio 0.8-2. 0 Not Available [address], [address], 07/31/2021 11:06:00 07/30/20 21 07/31/2021 COMP. METAB OLIC PANEL total bilirubin 0.90 mg/dL 0.00-1 .00 Not Available [address], [address], 07/31/2021 11:06:00 07/30/20 21 07/31/2021 COMP. METAB OLIC PANEL AST 28 U/L 0-37 Not Available [address], [address], 07/31/2021 11:06:00 07/30/20 21 07/31/2021 COMP. METAB OLIC PANEL ALT 59 U/L 6-63 Not Available [address], [address], 07/31/2021 11:06:00 07/30/20 21 07/31/2021 COMP. METAB OLIC PANEL alk. phos. 51 U/L 50-136 Not Available [address], [address], 07/31/2021 11:06:00 07/30/2007/31/2021 LIPID PANEL cholesterol 179 mg/dL <200 mg/dl Mio able 200-2 39 mg/dl Borde rline High >240 mg/dl High Not Available [address], [address], 07/31/2021 11:06:06 09/02/20 21 07/31/2021 LIPID PANEL triglyceride s 296 mg/dL high LIPM= Speci men Moder ately Lipem ic. Chem Resul ts may be effec seb. <150 mg/dL Niyah l 150-1 99 mg/dL Borde rline High 200-4 99 mg/dL High >500 mg/dL Very High Not Available [address], [address], 07/31/2021 11:06:06 07/30/20 21 07/31/2021 LIPID PANEL direct HDL 24 mg/dL <40 mg/dl - Major Risk for CHD >60 mg/dl - Negat lyric Risk for CHD Not Available [address], [address], 07/31/2021 11:06:06 07/30/20 21 07/31/2021 DIREC T LDL direct LDL 117 mg/dL RISK CATEG ORY LDL GOAL _ CHD or CHD Risk Equiv alent s <100 mg/dl (10-y ear risk >20%) 2+ Risk Facto rs <130 mg/dl (10-y ear risk <= 20%) 0-1 Risk Facto r??? <160 mg/dl ??? Almos t all peopl e with 0-1 risk facto r have a 10 year risk <10%, thus 10 year risk asses ment in peopl e with 0-1 risk facto r is not necsav penn. Not Available [address], [address], 07/31/2021 11:06:07 07/30/2007/31/2021 TSH TSH 1.92 uIU/m L 0.50-6 .00 The Ameri can Colle ge of Endoc rinol ogy and Ameri can Thyro id Assoc iatio n recom mend goal TSH value s betwe en 0.4-4 .0 mIU/m L. Not Available [address] [place], [address], 07/31/2021 12:25:30 07/30/2008/04/2021 TESTO STERO NE, FREE (DIAL YSIS) AND TOTAL ,MS testosterone , total, MS 439 NG/dL 250-11 00 Men with clini marybeth signi fican t hypog onada l sympt oms and testo stero ne value s repea tedly in the range of the 200-3 00 ng/dL or less, may benef it from testo stero ne treat ment after adequ ate risk and benef its couns eling . For addit ional infor kelli reynolds e refer to http: //[facility] breonna coles.que stdia gnost ics.c om/fa q/ Total Testo stero neLCM [facility] Q165 (This link is being provi ded for infor sb robert/ educa roby l purpo ses only. ) This test was devel oped and its nash tical perfo rmanc e priscila cteri stics have been deter mined by [facility] [place] [place]. It has not been clear ed or appro mady by the U.S. Food and Drug Admin istra tion. This assay has been valid ated pursu ant to the CLIA regul ation s and is used for clini adrien purpo ses. Not Available [facility] [address], [place], [address], 08/04/2021 13:55:31 07/30/2008/04/2021 TESTO STERO NE, FREE (DIAL YSIS) AND TOTAL ,MS testosterone , free 62.8 pg/mL 35.0-1 55.0 This test was devel oped and its nash tical perfo rmanc e priscila cteri stics have been deter mined by [facility] [place] [place]. It has not been clear ed or appro mady by the U.S. Food and Drug Admin istra tion. This assay has been valid ated pursu ant to the CLIA regul ation s and is used for clini adrien purpo ses. Not Available [facility] [place] [facility] [address], [place], [address], 08/04/2021 13:55:31 09/23/20 21 09/24/2021 ANATO SHANTI PATHO LOGY path report [facility] [address] [facility] [place] [address] Lab Dire tor: Jennifer tamez MD Surgi adrien Patho logy Repor t Acces chelsi #: [id number] FINAL PATHO LOGIC DIAGN OSIS: A. CECUM COLON POLYP : Adeno matou s polyp fragm ents. B. ASCEN DING COLON POLYP : Adeno matou s polyp fragm ents. C. HEPAT IC FLEXU RE COLON POLYP S: Adeno matou s polyp fragm ents. D. HEPAT IC FLEXU RE COLON POLYP #2: Adeno matou s polyp fragm ents. E. SPLEN IC FLEXU RE COLON POLYP : Adeno matou s polyp fragm ents. F. SIGMO ID COLON POLYP : Adeno matou s polyp on a stalk . Lucrecia angel mcmanus y Claudia d Out By Faizan el MD By his/h er francy king above , the patho logis t paul d as consuelo rivers the Final Diagn osis certi fies that he/sh e has perso patricia revie wed this case and confi rmed or corre cted the diagn osis. 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 Last colon oscop y 10 years ago. SPECI MENS SUBMI TTED: A: CECUM POLYP B: ASCEN DING COLON POLYP C: HEPAT IC FLEXU RE POLYP S D: HEPAT IC FLEXU RE POLYP #2 E: SPLEN IC FLEXU RE COLON POLYP F: SIGMO ID COLON POLYP GROSS DESCR IPTIO N A. CECUM POLYP : Forma lindsey: 1 fragm ent 0.4 cm, bisec seb, entir bette submi tted A1. B. ASCEN DING COLON POLYP : Forma lindsey: 1 fragm ent 0.5 cm, bisec seb and entir bette submi tted B1. C. HEPAT IC FLEXU RE POLYP S: Forma lindsey: Are sever al long strip s and polyp oid fragm ents of tissu e 2 cm in aggre gate, entir bette submi tted C1. D. HEPAT IC FLEXU RE POLYP #2: Forma lindsey: 2 fragm ents 0.3 and 0.4 cm, entir bette submi tted D1. E. SPLEN IC FLEXU RE COLON POLYP : Forma lindsey: 3 fragm ents 0.3 cm each, entir bette submi tted E1. F. SIGMO ID COLON POLYP : Forma lindsey: 1 linea r fragm ents 0.9 cm, entir bette submi tted F1. AN 09/23 Gross ing Staff : FEI samuel Name: ASUNCION CASTILLO : [birth year] (Age: 65) Sex: M 1 Insti tutio n: [facility] Locat ion: [facility] Date of Opera tion: 09/23 Date of Acces chelsi: 09/23 Repor seb: 09/24 12:46 Resul ts To: Sameer valverde MD, BS Not Available [facility] (Outpatient) [address] [place] [address], [id number], 09/24/2021 12:51:34 07/29/20 22 07/29/2022 CBC AND DIFFE RENTI AL WBC 6.88 K/uL 4.00-1 1.00 Not Available [facility] (Outpatient) [address] [place] [address], [id number], 07/29/2022 13:36:10 07/29/20 22 07/29/2022 CBC AND DIFFE RENTI AL RBC 4.78 M/uL 3.90-5 .69 Not Available [facility] (Outpatient) [address] [place] [address], [id number], 07/29/2022 13:36:10 07/29/20 22 07/29/2022 CBC AND DIFFE RENTI AL HGB 15.0 g/dL 12.4-1 7.3 Not Available [facility] (Outpatient) [address] [place], [address], 07/29/2022 13:36:10 07/29/20 22 07/29/2022 CBC AND DIFFE RENTI AL HCT 41.6 % 37.0-5 1.0 Not Available [facility] (Outpatient) [address] [place], [address], 07/29/2022 13:36:10 07/29/20 22 07/29/2022 CBC AND DIFFE RENTI AL plt 200 K/uL 140-43 0 Not Available [facility] (Outpatient) [address] [place], [address], 07/29/2022 13:36:10 07/29/20 22 07/29/2022 CBC AND DIFFE RENTI AL MCV 87.0 fL 78.0-9 7.0 Not Available [facility] (Outpatient) [address] [place], [address], 07/29/2022 13:36:10 07/29/20 22 07/29/2022 CBC AND DIFFE RENTI AL MCH 31.4 pg 25.0-3 3.0 Not Available [facility] (Outpatient) [address] [place], [address], 07/29/2022 13:36:10 07/29/20 22 07/29/2022 CBC AND DIFFE RENTI AL MCHC 36.1 g/dL 32.0-3 6.0 high Not Available [facility] (Outpatient) [address] [place], [address], 07/29/2022 13:36:10 07/29/20 22 07/29/2022 CBC AND DIFFE RENTI AL RDW 12.7 % 11.0-1 5.0 Not Available [facility] (Outpatient) [address] [place], [address], 07/29/2022 13:36:10 07/29/20 22 07/29/2022 CBC AND DIFFE RENTI AL MPV 10.3 fL 8.4-12 .8 Not Available [facility] (Outpatient) [address] [place], [address], 07/29/2022 13:36:10 07/29/20 22 07/29/2022 CBC AND DIFFE RENTI AL diff method Auto Not Available [facility] (Outpatient) [address] [place], [address], 07/29/2022 13:36:10 07/29/20 22 07/29/2022 CBC AND DIFFE RENTI AL neuts 58.9 % 43.0-7 5.0 Not Available [facility] (Outpatient) [address] [place], [address], 07/29/2022 13:36:10 07/29/20 22 07/29/2022 CBC AND DIFFE RENTI AL lymphs 31.3 % 18.2-4 7.4 Not Available [facility] (Outpatient) [address] [place], [address], 07/29/2022 13:36:10 07/29/20 22 07/29/2022 CBC AND DIFFE RENTI AL monos 7.4 % 4.00-1 1.00 Not Available [facility] (Outpatient) [address] [place], [address], 07/29/2022 13:36:10 07/29/20 22 07/29/2022 CBC AND DIFFE RENTI AL eos 1.7 % 0.0-8. 0 Not Available [facility] (Outpatient) [address] [place], [address], 07/29/2022 13:36:10 07/29/20 22 07/29/2022 CBC AND DIFFE RENTI AL basos 0.4 % 0.0-2. 0 Not Available [facility] (Outpatient) [address] [place] [address], [address], 07/29/2022 13:36:10 07/29/20 22 07/29/2022 CBC AND DIFFE RENTI AL granulocytes , immature (%) 0.3 % 0.0-0. 9 Not Available [facility] (Outpatient) [address] [place] [address], [address], 07/29/2022 13:36:10 07/29/20 22 07/29/2022 CBC AND DIFFE RENTI AL absolute neuts 4.05 K/uL 1.80-7 .70 Not Available [facility] (Outpatient) [address] [place] [address], [address], 07/29/2022 13:36:10 07/29/20 22 07/29/2022 CBC AND DIFFE RENTI AL absolute lymphs 2.15 K/uL 1.00-3 .10 Not Available [facility] (Outpatient) [address] [place] [address], [address], 07/29/2022 13:36:10 07/29/20 22 07/29/2022 CBC AND DIFFE RENTI AL absolute monos 0.51 K/uL 0.20-0 .80 Not Available [facility] (Outpatient) [address] [place] [address], [address], 07/29/2022 13:36:10 07/29/20 22 07/29/2022 CBC AND DIFFE RENTI AL absolute eos 0.12 K/uL 0.00-0 .80 Not Available [facility] (Outpatient) [address] [place] [address], [address], 07/29/2022 13:36:10 07/29/20 22 07/29/2022 CBC AND DIFFE RENTI AL absolute basos 0.03 K/uL 0.00-0 .09 Not Available [facility] (Outpatient) [address] [place], [address], 07/29/2022 13:36:10 07/29/20 22 07/29/2022 CBC AND DIFFE RENTI AL granulocytes , immature 0.02 K/uL 0.00-0 .05 Not Available [facility] (Outpatient) [address] [place], [address], 07/29/2022 13:36:10 07/29/20 22 07/29/2022 TROPO ALLYN troponin-T, hs gen5 8 NG/L 0-14 Not Available [facility] (Outpatient) [address] [place], [address], 07/29/2022 13:39:08 07/29/20 22 07/29/2022 BASIC METAB OLIC PANEL sodium 138 mmol/ L 133-14 6 Not Available [facility] (Outpatient) [address] [place], [address], 07/29/2022 13:44:29 07/29/20 22 07/29/2022 BASIC METAB OLIC PANEL chloride 98 mmol/ L 96-108 Not Available [facility] (Outpatient) [address] [place], [address], 07/29/2022 13:44:29 07/29/20 22 07/29/2022 BASIC METAB OLIC PANEL potassium 4.2 mmol/ L 3.3-5. 1 Not Available [facility] (Outpatient) [address] [place], [address], 07/29/2022 13:44:29 07/29/20 22 07/29/2022 BASIC METAB OLIC PANEL CO2 31 mmol/ L 21-35 Not Available [facility] (Outpatient) [address] [place], [address], 07/29/2022 13:44:29 07/29/20 22 07/29/2022 BASIC METAB OLIC PANEL BUN 18 mg/dL 6-19 Not Available [facility] (Outpatient) [address] [place], [address], 07/29/2022 13:44:29 07/29/20 22 07/29/2022 BASIC METAB OLIC PANEL creatinine 1.10 mg/dL 0.5-1. 5 Not Available [facility] (Outpatient) [address] [place], [address], 07/29/2022 13:44:29 07/29/20 22 07/29/2022 BASIC METAB OLIC PANEL glucose 258 mg/dL 70-99 high Not Available [facility] (Outpatient) [address] [place], [address], 07/29/2022 13:44:29 07/29/20 22 07/29/2022 BASIC METAB OLIC PANEL calcium 10.4 mg/dL 8.4-10 .3 high Not Available [facility] (Outpatient) [address] [place], [address], 07/29/2022 13:44:29 07/29/20 22 07/29/2022 BASIC METAB OLIC PANEL eGFR 74 mL/mi n/1.7 3m2 >59 Estim ated glome rular filtr ation rate calcu lated using the CKD-E PI refit equat ion. Not Available [facility] (Outpatient) [address] [place], [address], 07/29/2022 13:44:29 07/29/20 22 07/29/2022 BASIC METAB OLIC PANEL anion gap 13 mmol/ L 10-20 Not Available [facility] (Outpatient) [address] [place], [address], 07/29/2022 13:44:29 07/29/20 22 07/29/2022 D-DIM ER D-dimer 681 NG/mL _feu <500 high In patie nts with low to moder ate pre-t est proba bilit y score s for VTE (PE or DVT), a D-Dim er cut-o ff less than 500 ng/mL (FEU) has a negat lyric predi ctive value (NPV) of 97 to 100%. Not Available [facility] (Outpatient) [address] [place], [address], 07/29/2022 13:53:54 07/29/20 22 07/29/2022 NT-MO OBNP nt-probnp 61 pg/mL 0-125 Not Available [facility] (Outpatient) [address] [place], [address], 07/29/2022 14:17:11 07/29/20 22 07/29/2022 TROPO ALLYN troponin-T, hs gen5 7 NG/L 0-14 Not Available [facility] (Outpatient) [address] [place], [address], 07/29/2022 15:05:38 06/10/20 20 06/10/2020 XR, chest OBSERV ATION: CLINIC AL HISTOR Y: Shortn ess of breath . CHF. TECHNI QUE: Fronta l view and latera l view of the chest obtain ed. COMPAR NIYAH: 2017 FINDIN GS: The heart is normal in size and config uratio n. There is no hilar or medias tinal enlarg ement. There is no focal lung consol idatio n or infilt rate. The bony thorax is intact . IMPRES CHELSI: No acute diseas e. Electr onical ly signed Readin g Physic eliza: Dionicio James ms [facility] (Imaging) [address], [place], [address], 06/27/2020 09:02:11 06/18/20 20 06/10/2020 elect amada storm am No observ ation record ed. BARCODE Not Available 2019 16:40:40 06/20/20 21 06/20/2021 xr chest Pa and later al 2 views Reason for exam (per EHR order) : * Cough, persis tent TECHNI QUE: Fronta l and latera l radiog raphs of the chest. COMPAR NIYAH: None. FINDIN GS: Suppor t Device s / Implan ts / Lines and Tubes: None. Lungs and Pleura : No focal consol idatio n, pulmon bisi edema, pleura l effusi on or pneumo thorax . Cardio medias tinal Silhou ette: Normal . Miscel laneou s Findin gs: None. IMPRES CHELSI: No acute abnorm ality. Electr onical ly Signed by: Myra mclaughlin on 021 4:37 PM Interp reted by: Myra mclaughlin MD Signed by: Myra mclaughlin MD 1 Final result P.s. persis tent produc tive cough. [facility] [address] [place] [address], [address], 06/25/2021 13:35:59 07/29/20 22 07/29/2022 xr chest Pa and later al 2 views XR CHEST PA AND LATERA L 2 VIEWS Reason for exam (per EHR order) : Dyspne a (Short ness of Breath ) TECHNI QUE: Fronta l and latera l radiog raphs of the chest. COMPAR NIYAH: May 2021. FINDIN GS: Suppor t Device s / Implan ts / Lines and Tubes: None. Lungs and Pleura : No focal consol idatio n, pulmon bisi edema, pleura l effusi on or pneumo thorax . Cardio medias tinal Silhou ette: Normal . Miscel dionna law Findin gs: None. IMPRES CHELSI: No acute abnorm ality. Electr onical ly Signed by: Myra mclaughlin on 07/29/20 22 12:38 PM Interp reted by: Myra mclaughlin MD Signed by: Myra mclaughlin MD 07/29/22 Final result P.s. shortn ess of breath , physic eliza concer danis for blood clots LAURYN CRUZ [email or web address] [facility] [address] [place] [address], [address], 07/29/2022 14:07:31 07/29/20 22 07/29/2022 CT chest pulmo nary angio gram (acut e) CT CHEST PULMON BISI ANGIOG DARWIN (ACUTE ) Review of the Electr onic Medica l Record reveal s an additi onal histor y of: 1 year shortn ess of breath TECHNI QUE: Multid etecto r CT pulmon bisi angiog shireen was perfor med after admini strati on of intrav enous contra st using tailor ed dose modula tion techni ques. 3D angiog raphic postpr ocessi ng techni ques were acquir ed in the form of axial maximu m intens ity projec tion images (MIPS) . COMPAR NIYAH: None FINDIN GS: Pulmon bisi Angiog darwin: There is no fillin g defect to sugges t pulmon bisi emboli sm. Proxim al to the bifurc ation of the main pulmon bisi artery , the main pulmon bisi artery is 2.2 cm in diamet er. Device s/Tube s/Line s: None. Lungs: Bibasi lar atelec tasis. No consol idatio n. Pleura : No pleura l effusi on or pneumo thorax . Medias tinum: Aortic and galarza ry artery calcif icatio ns. Lymph Nodes: No enlarg ed suprac lavicu lar, axilla ry, medias tinal, or hilar lymph nodes. Athero sclero tic galarza ry artery calcif icatio ns. Upper Abdome n: No abnorm ality detect ed in the visual ized upper abdome n. Chest Wall: No chest wall mass. Bones: No suspic ious lytic or blasti c lesion . IMPRES CHELSI: No pulmon bisi emboli sm. ATTEST ATION: I, Ronald Gaytan as teachi ng physic eliza, have review ed the images for this case and if necess bisi edited the report origin vijay heath by Belen molina. Electr onical ly Signed by: Ronald Gaytan on 07/29/20 4:35 PM Interp reted by: MD Belen Ferreira MD Signed by: Ronald Gaytan MD 07/29/22 Final result LAURYN CRUZ [facility] [address], [place], [address], 07/30/2022 13:49:16 04/17/20 23 09/23/2021 colon oscop y proce dure (PROC ) No observ ation record ed. [email or web address] Not Available 2022 11:40:01 Result Notes None recorded. Problems Name Problem SNOMED Code Status Onset Date Resolution Date Notes Provider Name and Address Organization Details Recorded Time Upper respirat ory infectio n 21518601 Completed 02/27/2014 Yosi Shaw MD [address] [place] [address], [phone] , [facility] 4 08:36:01 Depressi ve disorder 75990767 Completed 201703/17/2021 F32.9 = no RADHA Score. Please code severity or remissio n level for RADHA. Removal Reason: F32.0 coded 07/04/20 Virtual Visit. 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 Active Lauryn Cruz MD [address] [place] [address], [address] , [facility] 6 22:31:56 Common cold 88940741 Completed 200410/17/2013 Not Available [facility] 3 02:00:30 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 Not Available [facility] 3 03:05:19 Malignan t neoplasm of head, neck and face Completed 200504/03/2015 Lauryn Cruz MD [address] [place] [address], [address] , [facility] 5 10:57:49 Lateral epicondy litis 131498923 Completed 200710/17/2013 Not Available [facility] 3 02:02:34 Urinary tract infectio us disease 39284880 Completed 10/17/2013 Not Available [facility] 3 02:01:59 Open wound of forearm 401578518 Completed 200410/17/2013 Not Available [facility] 3 02:04:16 Acute maxillar y sinusiti s 82214297 Completed 200410/17/2013 Not Available [facility] 3 02:01:43 Benign essentia l hyperten chelsi 0478047 Completed 02/27/2014 Yosi Shaw MD [address] [place] [address], [address] , [facility] 4 08:36:01 Low back pain 478854932 Completed 200304/03/2015 Lauryn Cruz MD [address] [place] [address], [address] , [facility] 5 10:57:49 Blephari tis 16151174 Completed 200502/27/2014 Yosi Shaw MD [address] [place] [address], [address] , [facility] 4 08:36:01 Hip pain 29566065 Completed 200510/17/2013 Not Available [facility] 3 02:01:33 Neck pain 41849236 Completed 200510/17/2013 Not Available [facility] 3 02:00:37 Acute bronchit is 82914469 Completed 200410/17/2013 Not Available [facility] 3 02:01:37 Disorder of upper respirat ory system 716651346 Completed 200410/17/2013 Not Available [facility] 3 02:03:48 Problem Notes None recorded. Procedures Surgical History Date Name Laterality Status Provider Name and Address Organization Details Recorded Time 05/07/20 Medicare Wellness Visit completed Janet Boo MA [facility] 05/07/2021 08:30:21 05/07/20 prevention-cardi ovascular risk reduction counseling completed Janet Boo [facility] 05/07/2021 08:30:21 05/07/20 prevention-annua l alcohol misuse screening completed Janet Boo [facility] 05/07/2021 08:30:21 10/08/20 19 21675: Therapeutic Exercise completed Maria Eugenia Orr, PT [address] [place], [address], [facility] 2019 11:24:08 10/08/20 19 29698: Manual Therapy completed Maria Eugenia Orr, PT [address] [place], [address], [facility] 2019 11:24:15 10/08/20 19 Treatment and Advice completed Maria Eugenia Orr, PT [address] [facility] [place], [address], [facility] 2019 10:35:11 10/01/20 19 94155: Therapeutic Exercise completed Maria Eugenia Orr, PT [address] [place], [address], [facility] 10/01/2019 10:27:49 10/01/20 19 [address]72: Manual Therapy completed Maria Eugenia Orr, PT [address] [place], [address], [facility] 10/01/2019 10:27:53 10/01/20 19 Treatment and Advice completed Maria Eugenia Orr, PT [address] [place], [address], [facility] 10/01/2019 10:21:45 09/24/20 19 Physical Activity Counselling completed Maria Eugenia Orr, PT [address] [place], [address], [facility] 09/24/2019 10:31:57 09/24/20 19 50137: PT Eval Low Complexity completed Maria Eugenai Orr, PT [address] [place], [address], [facility] 09/24/2019 10:31:54 09/24/20 19 Treatment and Advice completed Maria Eugenia Orr, PT [address] [place], [address], [facility] 09/24/2019 09:31:33 11/07/20 18 Gonioscopy completed Ayse Harrison, OD [address] [place], [address], [facility] 11/07/2018 15:12:21 11/07/20 18 Refraction completed Radha Ulrich [facility] 11/07/2018 11:25:01 08/19/20 17 Punch Biopsy completed Lauryn Cruz MD [address] [place], [address], [facility] 08/23/2017 20:53:36 06/25/20 14 Cerumen Removal completed Rosalia Shetty LPN [facility] 06/25/2014 15:13:22 Appendectomy completed Not Available [facility] dickerson 10/14/2011 06:06:16 Imaging Results Imaging Date Name Status LastModified by Organization Details LastModified Time 06/10/2020 [facility] [address], [place], [address], 06/27/2020 09:02:11 06/10/2020 electrocardiogram completed BARCODE Informa tion not available 06/18/2020 16:40:40 06/20/2021 xr chest Pa and lateral 2 views completed [facility] [address] [place] [address], [address], 06/25/2021 13:35:59 07/29/2022 xr chest Pa and lateral 2 views completed [address] [facility] [address] [place] [address], [address], 07/29/2022 14:07:31 07/29/2022 CT chest pulmonary angiogram (acute) completed [facility] [address] [facility] [place], [address], 07/30/2022 13:49:16 09/23/2021 colonoscopy procedure (PROC) completed [email or web address] Information not available 04/17/2023 11:40:01 Procedure Notes None recorded. Medical Equipment None Reported. Allergies No known drug allergies Medications Name Sig Start Date Stop Date Status Note LastModified by Organization Details LastModified Time shingrix 50 mcg/0.5ml susr 07/04 completed Not Available Not Available Not Available chlorthal idone 50 mg tabs 07/04 completed Not Available Not Available Not Available sildenafi l 100 mg tabs 06/10 completed Not Available Not Available Not Available lisinopri l 40 mg tabs 07/04 completed Not Available Not Available Not Available hydrochlo rothiazid e 25 mg tabs 02/22 completed Not Available Not Available Not Available benzonata te 200 mg caps 02/22 completed Not Available Not Available Not Available trazodone hydrochlo ride 50 mg tabs 02/22 completed Not Available Not Available Not Available azithromy blanca 250 mg tabs 02/22 completed Not Available Not Available Not Available paroxetin e hydrochlo ride 10 mg tabs 07/04 completed Not Available Not Available Not Available cheratuss in ac 100-10 mg/5ml syrp 02/22 completed Not Available Not Available Not Available virtussin a/c 100-10 mg/5ml soln 08/27 completed Not Available Not Available Not Available sertralin e hcl 50 mg tabs 02/22 completed Not Available Not Available Not Available fluticaso ne propionat e 50 mcg/act susp 02/22 completed Not Available Not Available Not Available paroxetin e hcl 10 mg tabs 07/04 completed Not Available Not Available Not Available amoxicill in 500 mg capsule Take 1 capsule 3 times a day by oral route for 7 days. active Not Available Not Available No t Available paroxetin e 10 mg tablet Take 3 tablets by mouth once daily 05/07 completed Pt reports not taking 07/04/20 AAS Not Available Not Available Not Available trazodone 50 mg tablet Take 1 tablet every day by oral route. 02/22 completed Not Available Not Available Not Available azithromy blanca 250 mg tablet TAKE 2 TABLETS (500 MG) BY ORAL ROUTE ONCE DAILY FOR 1 DAY THEN 1 TABLET (250 MG) BY ORAL ROUTE ONCE DAILY FOR 4 DAYS 10/09 completed Not Available Not Available Not Available benzonata te 200 mg capsule TAKE 1 CAPSULE BY MOUTH THREE TIMES DAILY FOR 7 DAYS active Not Available Not Available No t Available lisinopri l 20 mg tablet Take 1 tablet every day by oral route for 30 days. 2009 active Not Available Not Available Not Avai lable Debrox 6.5 % ear drops INSTILL 5 DROPS INTO AFFECTED EAR(S) BY OTIC ROUTE 2 TIMES PER DAY 2019 active prn Not Available Not Available Not Avai lable chlorthal idone 50 mg tablet Take 1 tablet by mouth once daily active Not Available Not Available No t Available sildenafi l 100 mg tablet TAKE 1 2 TABLET BY MOUTH DAILY DIRECTED active Not Available Not Available No t Available amoxicill in 500 mg tablet Take 1 tablet 3 times a day by oral route for 7 days. 2014 active Not Available Not Available Not Avai lable amoxicill in 875 mg tablet Take 1 tablet every 12 hours by oral route for 7 days. 01/29 completed Not Available Not Available Not Available amlodipin e 10 mg tablet TAKE 1 TABLET BY MOUTH EVERY DAY *MAKE OV active Not Available Not Available No t Available benzonata te 100 mg capsule TAKE 1 CAPSULE BY MOUTH THREE TIMES DAILY NEEDED FOR COUGH active Not Available Not Available No t Available paroxetin e 20 mg tablet TAKE 1 TABLET BY MOUTH ONCE DAILY active Not Available Not Available No t Available lisinopri l 30 mg tablet TAKE ONE TABLET BY MOUTH ONCE DAILY active Not Available Not Available No t Available hydrochlo rothiazid e 25 mg tablet TAKE ONE TABLET BY MOUTH ONCE DAILY 09/14 completed Not Available Not Available Not Available albuterol sulfate HFA 90 mcg/actua tion aerosol inhaler INHALE 2 PUFFS BY MOUTH EVERY 6 HOURS NEEDED FOR WHEEZING active Not Available Not Available No t Available lisinopri l 40 mg tablet TAKE 1 TABLET BY MOUTH ONCE DAILY active Not Available Not Available No t Available fluticaso ne propionat e 50 mcg/actua tion nasal spray,jerry pension [place] 1 spray twice a day by intranas al route for 30 days. 11/13 completed Not Available Not Available Not Available sertralin e 50 mg tablet Take 1 tablet every day by oral route. 11/13 completed Not taking 11.12.18 AAS Not Available Not Available Not Available Virtussin AC 10 mg-100 mg/5 mL oral liquid Take 5 mL 3 times a day by oral route as needed for 5 days. 09/14 completed Not Available Not Available Not Available Shingrix (PF) 50 mcg/0.5 mL intramusc ular suspensio n, kit PHARMACI ST ADMINIST ERED IMMUNIZA TION ADMINIST ERED AT TIME OF DISPENSI NG 07/04 completed Not Available Not Available Not Available Fluzone Quad (PF) 60 mcg (15 mcg x 4)/0.5 mL IM syringe PHARMACI ST ADMINIST ERED IMMUNIZA TION ADMINIST ERED AT TIME OF DISPENSI NG 09/17 completed Not Available Not Available Not Available Vitals Date Recorded Body height Provider Name an d Address Organization Details Last Updated DateTime 06/10/2020 175.26 cm Monica Alvarado Mirela [facility] 06/10/2020 10:05:26 Date Recorded Body mass index (BMI) Body weight Provider Name and Address Organization Details Last Updated DateTime 06/10/2020 28.1 kg/m2 75699.55 g Monica Alvarado Mirela [facility] 06/10/2020 10:05:55 Date Recorded Heart rate Provider Name an d Address Organization Details Last Updated DateTime 06/10/2020 72 /min Monica Alvarado Mirela [facility] 06/10/2020 10:10:13 Date Recorded Body height Provider Name an d Address Organization Details Last Updated DateTime 06/10/2020 175.26 cm Sadia Perez [facility] 06/10/2020 11:47:56 Date Recorded Body mass index (BMI) Body weight Provider Name and Address Organization Details Last Updated DateTime 06/10/2020 28.1 kg/m2 96531.55 g Sadia Perez MA [facility] 06/10/2020 11:57:05 Date Recorded Heart rate Provider Name an d Address Organization Details Last Updated DateTime 06/10/2020 70 /min Sadia mckeon MA [facility] 06/10/2020 11:57:50 Date Recorded Oxygen saturation Oxygen saturation in Arterial blood by Pulse oximetry Provider Name and Address Organization Details Last Updated DateTime 06/10/2020 97 % 97 % Sadiajc Perez MA [facility] 06/10/2020 11:57:53 Date Recorded Body temperature Provider Name a nd Address Organization Details Last Updated DateTime 06/10/2020 97.8 [degF] Sadia Perez MISSY [facility] 06/10/2020 12:00:06 Date Recorded Body height Provider Name an d Address Organization Details Last Updated DateTime 06/12/2020 175.26 cm Sadia Perez MA [facility] 06/12/2020 16:41:17 Date Recorded Body mass index (BMI) Body weight Provider Name and Address Organization Details Last Updated DateTime 06/12/2020 30.9 kg/m2 68416.51 g Sadia Ana MISSY [facility] 06/12/2020 16:42:05 Date Recorded Body temperature Provider Name a nd Address Organization Details Last Updated DateTime 06/12/2020 98.1 [degF] Sadia Antonioon MISSY [facility] 06/12/2020 16:42:31 Date Recorded Heart rate Provider Name an d Address Organization Details Last Updated DateTime 06/12/2020 100 /min Sadia mckeon MA [facility] 06/12/2020 16:44:44 Date Recorded Body height Provider Name an d Address Organization Details Last Updated DateTime 07/04/2020 175.26 cm Kaycee Benavides MA [facility] 07/04/2020 10:05:17 Date Recorded Body mass index (BMI) Body weight Provider Name and Address Organization Details Last Updated DateTime 07/04/2020 28.1 kg/m2 03283.55 g Kaycee Benavides MA [facility] 07/04/2020 10:05:38 Date Recorded Heart rate Provider Name an d Address Organization Details Last Updated DateTime 07/04/2020 66 /min [facility]ides [facility] 07/04/2020 10:05:55 Date Recorded Body height Provider Name an d Address Organization Details Last Updated DateTime 07/17/2020 175.26 cm Vlad Garcia [address] [place] [address], [phone], [facility] 07/17/2020 12:07:20 Date Recorded Body height Provider Name an d Address Organization Details Last Updated DateTime 05/07/2021 173.99 cm Janet Boo [facility] 05/07/2021 15:56:41 Date Recorded Body mass index (BMI) Body weight Provider Name and Address Organization Details Last Updated DateTime 05/07/2021 31.7 kg/m2 82503.79 g Janet Boo MA [facility] 05/07/2021 15:56:37 Date Recorded Heart rate Provider Name an d Address Organization Details Last Updated DateTime 05/07/2021 72 /min Janet Boo [facility] 05/07/2021 15:58:35 Date Recorded Systolic blood pressure Diastolic blood pressure Provider Name and Address Organization Details Last Updated DateTime 06/10/2020 175 mm[Hg] 107 mm[Hg] JERRY Begum [facility] 06/10/2020 10:10:04 Date Recorded Systolic blood pressure Diastolic blood pressure Provider Name and Address Organization Details Last Updated DateTime 06/10/2020 175 mm[Hg] 99 mm[Hg] Sadia Perez MA [facility] 06/10/2020 11:59:05 Date Recorded Systolic blood pressure Diastolic blood pressure Provider Name and Address Organization Details Last Updated DateTime 06/12/2020 120 mm[Hg] 66 mm[Hg] Sadia Perez MA [facility] 06/12/2020 16:43:45 Date Recorded Systolic blood pressure Diastolic blood pressure Provider Name and Address Organization Details Last Updated DateTime 07/04/2020 117 mm[Hg] 67 mm[Hg] Kaycee Benavides MA [facility] 07/04/2020 10:05:53 Date Recorded Systolic blood pressure Diastolic blood pressure Provider Name and Address Organization Details Last Updated DateTime 07/17/2020 136 mm[Hg] 76 mm[Hg] Lauryn Cruz MD [address] [place] [address], [phone], [facility] 07/17/2020 12:07:33 Date Recorded Systolic blood pressure Diastolic blood pressure Provider Name and Address Organization Details Last Updated DateTime 05/07/2021 114 mm[Hg] 62 mm[Hg] Janet Boo MA [facility] 05/07/2021 15:57:56 Social History Question Answer Notes LastModified by Organizat ion Details LastModified Time Tobacco Smoking Status Never Smoker Not Available [facility] 10/14/2011 04:54:19 Do You Have An Advance Directive? No Not Interested @ This Time [email or web address] Information not available 04/15/2010 What Is Your Level Of Alcohol Consumption? Occasional 1-2 Per Month Information not available 04/03/2015 Do You Wear A Helmet When Biking? Yes Information not available 04/03/2015 What Is Your Level Of Caffeine Consumption? Moderate 1 Cup Coffee Per Day Information not available 09/01/2016 How Much Tobacco Do You Chew? None Information not available 02/27/2014 What Type Of Diet Are You Following? REGULAR Information not available 04/03/2015 Which Illicit Or Recreational Drugs Have You Used? No [email or web address] Information not available 06/10/2020 Do You Or Have You Ever Used E-cigarettes Or Vape? Never Used Electronic Cigarettes Information not available 08/27/2019 Education 2 Year College 1 Year College Information not available 04/03/2015 What Is Your Occupation? Retired [employer] Information not available 05/07/2021 How Many Days In The Past Year Have You Had A Heavy Drinking Consumption (4+ Female, 5+ Male)? 0 Information not available 04/03/2015 Are There Any Guns Present In Your Home? No [id number] Information not available 10/14/2011 Live Alone Or With Others? With Others Information not available 10/14/2011 CSRP - Narcotics No Information not available 02/27/2014 CSRP Contract Signed And Discussed No Information not available 02/27/2014 Does The Patient Have Difficulty Speaking Kazakh? No Information not available 02/27/2014 Does The Patient Have Difficulty Reading Kazakh? No Information not available 02/27/2014 Patient Has Health Care Proxy Signed And In Chart No [email or web address] Information not available 10/25/2011 Transgender N/a [email or web address] Information not available 04/03/2015 CSRP - Stimulants No Information not available 02/27/2014 CCM Consent Discussion 05/07/2021 [email or web address] Information not available 05/11/2021 Marital Status In formation not available 10/14/2011 Mosquito Repellent Used Routinely No Information not available 10/14/2011 What Was The Date Of Your Most Recent Tobacco Screening? 05/07/2021 Information not available 05/07/2021 How Many Children Do You Have? 2 Information not available 10/14/2011 Are There Any Occupational Health Risks Where You Work? Low Information not available 04/03/2015 Seat Belts Used Routinely Yes [id number] Information not available 10/14/2011 Are You Sexually Active? Yes Information not available 04/03/2015 Smoke Alarm In Home Yes Information not available 10/14/2011 Do You Or Have You Ever Used Smokeless Tobacco? Never Used Smokeless Tobacco Information not available 08/27/2019 How Much Tobacco Do You Smoke? No Information not available 08/27/2019 What Types Of Sporting Activities Do You Participate In? Hiking [email or web address] Information not available 09/01/2016 General Stress Level Low Information not available 04/03/2015 Do You Use Sunscreen Routinely? Yes Information not available 10/14/2011 How Many Years Have You Smoked Tobacco? 0 Information not available 08/27/2019 Sex: Unknown Functional Status None recorded. Mental Status None recorded. Family History Relationship Description Onset Age of this Age Resolved Age Notes LastModified by Organization Details LastModified Time Mother Heart disease 80 [id number] Not available 07/09/2013 03:00:15 Father Malignant tumor of lung 80 previo usly record ed as Cancer - Lung [id number] Not available 07/09/2013 03:00:15 Medical History Condition Response Hypertension Y Immunizations Vaccine Type Date Status Note Provider Nam e and Address Organization Details Recorded Time Td(adult) unspecified formulation 5 completed Not Available [facility] 10/13/2011 05:21:07 Influenza, split virus, trivalent, preservative 1 completed Not Available [facility] 12/15/2019 02:28:47 Influenza, split virus, quadrivalent, PF 4 completed Not Available [facility] 12/15/2019 02:18:56 Influenza, split virus, quadrivalent, PF 4 completed Not Available [facility] 12/15/2019 02:19:21 Tdap 5 completed Not Available [facility] 12/15/2019 02:28:49 Influenza, split virus, trivalent, PF 3 completed Not Available [facility] 12/29/2019 02:10:38 Influenza, split virus, quadrivalent, PF 6 completed Not Available [facility] 12/15/2019 02:21:04 Influenza, split virus, quadrivalent, PF 7 completed Not Available [facility] 12/15/2019 02:34:53 Influenza, split virus, quadrivalent, PF 8 completed Not Available [facility] 12/15/2019 02:26:38 Influenza, split virus, quadrivalent, PF 9 completed Not Available [facility] 12/15/2019 02:24:08 zoster recombinant 9 completed Not Available [facility] 12/29/2019 02:10:44 zoster recombinant 9 completed Not Available [facility] 12/29/2019 02:10:45 pneumococcal polysaccharide PPV23 1 completed MISSY Winn [facility] 05/07/2021 17:14:28 Influenza, split virus, quadrivalent, preservative 0 [facility] 17:12:33 COVID-19, mRNA, LNP-S, PF, 30 mcg/0.3 mL dose 1 completed [facility] 05/07/2021 15:54:54 COVID-19, mRNA, LNP-S, PF, 30 mcg/0.3 mL dose 1 completed [facility] 05/07/2021 15:55:20 Influenza, high-dose, quadrivalent, PF 1 completed [facility] 08/27/2021 14:44:31 Past Encounters Encounter ID Performer Location Encounter Start Date Encounter Closed Date Diagnosis/Indication Diagnosis SNOMED-CT Code Diagnosis ICD10 Code Diagnosis Note [id number] [facility], [address] [place] [address] 11/02/2004 13:52:45 11/02/2004 15:45:28 [id number] [facility], [address] [place] [address] 01/06/2005 13:59:49 01/06/2005 17:24:15 [id number] [facility], [address] [place] [address] 03/03/2005 15:42:21 12/18/2008 02:02:29 [id number] [facility], [address] [place] [address] 09/21/2005 10:31:05 09/24/2005 12:42:59 [id number] [facility], [address] [place] [address] 11/02/2005 10:09:30 12/18/2008 02:02:29 [id number] Radiology , [address] [address] 11/02/2005 10:37:35 12/18/2008 02:02:29 [id number] Radiology , [address] [address] 11/02/2005 00:00:00 12/18/2008 02:02:29 [id number] [facility], [address] [place] [address] 11/16/2005 13:36:59 12/18/2008 02:02:29 [id number] LAB - [address] [address] 11/16/2005 14:11:58 11/16/2005 14:12:26 [id number] Eye Care, [address] [address] 12/09/2005 13:57:28 12/18/2008 02:02:29 [id number] FP, [facility], [address] [place] [address] 04/07/2006 14:29:56 04/07/2006 15:44:23 [id number] FP, [facility], [address] [place] [address] 07/12/2006 08:44:57 07/12/2006 11:37:46 [id number] FP, [facility], [address] [place] [address] 11/03/2006 13:24:11 11/03/2006 16:50:12 [id number] FP, [facility], [address] [place] [address] 09/20/2008 11:36:07 12/18/2008 02:02:29 [id number] FP, [facility], [address] [place] [address] 04/10/2009 09:32:04 04/15/2009 09:52:45 [id number] FP, [facility], [address] [place] [address] 01/22/2010 10:31:44 01/28/2010 14:38:42 [id number] Ana Erazo NP FP, [facility], [address] [place] [address] 03/24/2010 14:50:21 03/26/2010 13:44:47 [id number] FP, [facility], [address] [place] [address] 04/15/2010 16:05:12 04/17/2010 09:34:34 [id number] FP, [facility], [address] [place] [address] 08/11/2010 10:05:37 08/13/2010 11:44:09 [id number] FP, [facility], [address] [place] [address] 10/25/2011 15:30:52 10/27/2011 11:03:50 [id number] Radiology , [facility] [address] [place] [address] 10/25/2011 16:44:03 10/26/2011 13:23:32 [id number] MD SUAD Garcia [facility], [address] [place] [address] 02/02/2013 13:49:03 02/02/2013 14:52:13 [id number] Tino Young [facility], [address] [place] [address] 02/22/2013 09:11:13 02/22/2013 09:51:35 [id number] Cleo Claer. JOSE R , [facility], [address] [place] [address] 12/12/2013 06:26:34 12/12/2013 10:56:47 Influenza vaccine needed [id number] Isabella Norton MA , [facility], [address] [place] [address] 12/13/2013 11:28:05 12/13/2013 13:30:17 Upper respiratory infection 94991891 [id number] MISSY Petty, [facility], [address] [place] [address] 01/28/2014 13:34:09 01/30/2014 09:33:11 Allergic rhinitis 73792702 pt with persistent cough x 2 months and nasal congestion . suspicion of allergic rhinitis given no constituti onal findings and airways are clear. pt to report in 2 weeks if symptoms have not improved. [id number] Emma BORJAS [facility], [address] [place] [address] 02/27/2014 08:13:30 02/28/2014 09:51:11 Olecranon bursitis 301368264 [id number] MD SUAD Garcia, [facility], [address] [place] [address] 03/18/2014 10:17:55 03/18/2014 11:07:34 Adult health examination [id number] see Risk Assessment and Lifestyle Change Counseling section above Counseling [id number] Essential hypertension 23450164 at goal [facility] med[facility] [id number] MISSY Petty, [facility], [address] [place] [address] 06/25/2014 14:13:42 06/25/2014 15:50:10 Otitis media 52691095 Allergic rhinitis 56490313 [id number] Suzy BORJASI-[facility], [address] [place] [address] 09/16/2014 09:53:40 09/16/2014 10:19:59 Benign essential hypertension 4974255 Blood pressure at goal Influenza vaccine needed [id number] Silvia Valladares LPN , [facility], [address] [place] [address] 03/12/2015 14:14:18 03/12/2015 14:43:02 Otitis 73468076 suggest probiotics , acetaminop hen prn pain call if sx persist or increase Benign ess ential hypertension 7192845 will increase lisinopril to 40mg, keep HCTZat 12.5mg. Pt has PHA next month and will bring readings to appt [id number] [facility], [address] [place] [address] 04/03/2015 09:55:41 04/08/2015 15:22:18 Adult health examination 129482977 see Risk Assessment and Lifestyle Change Counseling section above Counseling [id number] Essential hypertension 88543221 Administra tion of diphtheria, pertussis, and tetanus vaccine 140509707 [id number] Georgina Reid [facility], [address] [place] [address] 03/10/2016 13:50:08 03/15/2016 09:05:36 Varicella vaccination 68621486 Z23 Essential hypertension 57015770 I10 at goal [id number] Lauryn Cruz MD , [facility], [address] [place] [address] 09/01/2016 14:03:23 09/02/2016 15:08:49 Adult health examination 761911101 Z00.00 see Risk Assessment and Lifestyle Change Counseling section above Counseling 286542317 Z71 .9 Active or passive immunization 851064974 Z23 Essential hypertension 12025457 I10 at goal Solitary n odule of lung 081156160 R91.[address] scan with nodule several years ago [id number] Lauryn Cruz MD , [facility], [address] [place] [address] 07/13/2017 14:01:38 07/13/2017 15:08:35 Dysplastic nevus of skin 097737347 D22.9 will return for biopsy [id number] Lauryn Cruz MD , [facility], [address] [place] [address] 08/19/2017 13:26:43 08/19/2017 14:26:53 Neoplasm of uncertain behavior of skin 32204652 D48.5 lesion biopsies sutures out in 5 days [id number] Lauryn Cruz MD , [facility], [address] [place] [address] 08/24/2017 13:42:19 08/25/2017 08:17:40 Active or passive immunization 508495127 Z23 Dysplastic nevus of skin 858697474 D22.9 s/p biopsy will see plastic surgery for removal [id number] Lauryn Cruz MD , [facility], [address] [place] [address] 02/16/2018 09:48:30 02/16/2018 10:33:28 Adult health examination 672643198 Z00.00 see Risk Assessment and Lifestyle Change Counseling section above Counseling 542160985 Z71 .9 Depression screening 171 410719 Z13.89 depression screening tool administer ed, entered into emr, scored and discussed, time greater than 7.5 minutes Neoplasm o f uncertain behavior of skin 33091955 D48.5 atypis on ear needs excision [id number] iLt Jaquez MD , [facility], [address] [place] [address] 04/30/2018 08:50:00 04/30/2018 09:41:26 Heel pain 9266983 M79.672 Patient presents with left heel pain after jumping up and landing on his heel last night. Tender at the medial tuberosity of the calcaneus. Unable to weight bear and ambulate due to pain. No significan t pain when resting. No significan t edema. No deformity on exam. No tenderness at the arch. No tenderness at Achilles. DDx includes plantar ligament sprain/tea r vs. calcaneal spur fracture vs. calcaneal fracture. No X-ray available today. Discussed the option of getting X-ray at [facility] ER. Opted to see [facility] in AM tomorrow. Crutches dispensed in the office today. Advised to avoid weight bearing. Encouraged to use NSAIDs prn. Indication s for ER use reviewed. [id number] KIARA Atkinson-MADDIE , [facility], [address] [place] [address] 07/03/2018 11:35:13 07/04/2018 16:39:05 Allergic rhinitis 74930652 J30.9 pt with persistent cough x 2 months and nasal congestion . suspicion of allergic rhinitis given no constituti onal findings and airways are clear. pt to report in 2 weeks if symptoms have not improved. [id number] KIARA Mayo , [facility], [address] [place] [address] 07/14/2018 14:55:37 07/14/2018 16:03:02 Acute upper respiratory infection 07377898 J06.9 Educated patient that URI is a viral illness of the upper airways. It is not bacterial and does not benefit from antibiotic s. Average duration of URI is 7-10 days but in a recent trial, treatment at 7-10 days of illness with antibiotic s, intranasal steroids, or placebo did not alter natural history at 3 weeks. Recommende d symptomati c treatments including NSAIDS, semi-uprig ht sleep position, antihistam kel at HS, limited course of nasal sympathomi metics and/or cough syrups, and nasal saline rinses with soft squeeze bottle or Neti pot. Return for fevers > 101 for 3 days, worsening sinus pain, or failure to resolve in 2-4 weeks.Will check CXR todayMay use benzonatat e during the day, cough syrup with codeine at bedtime. Please do not take these two medication s simultaneo usly. [id number] PRIMO Atkinson , [facility], [address] [place] [address] 07/25/2018 08:52:53 07/26/2018 14:10:11 Pneumonia 611461878 J18.9 resolving but persistent nocturnal coughimpro mady aerationaf ebrilerx as needed for nocturnal symptomsfo llow up x-ray ordered. [id number] Lauryn Cruz MD , [facility], [address] [place] [address] 08/21/2018 09:57:33 08/30/2018 09:13:11 Benign essential hypertension 2104687 I10 Blood pressure NOT at goal.will take meds every day decrease salt walk daily and f/u Active or passive immunization 279686679 Z23 Pneumonia 446618306 J18. 9 lungs clear will et f/u in 2 weeks Insomnia 038898063 G47.0 0 will add trazadone and f/u [id number] Lauryn Cruz MD FP, [facility], [address] [place] [address] 09/14/2018 11:56:21 09/15/2018 15:28:47 Anxiety 91498859 F41.9 will start sertraline Essential hypertension 76302293 I10 will switch to chlorthali done to see if can improve bp f/u 15/25 minutes discussing choice of meds [id number] JUDE Álvarez, [facility], [address] [place] [address] 10/09/2018 07:55:54 10/09/2018 08:50:30 Anxiety 16473318 F41.9 discussed sx tx- nutrtion,, sleep hygiens, exercise. Benign ess ential hypertension 5262372 I10 improved- continue chlorthali sone- pt decreased to 1/2 tac- f/u 1 months with PCP [id number] Ayse Harrison, [facility], [facility] [address] [place] [address] 11/07/2018 11:07:50 11/07/2018 12:17:18 Presbyopia 07796989 H52.4 Narrow angle 585453303 H 40.033 ONH appear healthy, IOP wnl OU. pt ed. refer for possible PI. RTC ROBERT if pain, redness, loss of vision occur. Also RTC 6 mo for IOP check. Blepharitis 60448204 H01 .9 pt ed. recommend hot compress qd. Lesion of eyelid 5686117 02 H02.89 RONNELL, likely old chalazion, appears benign. not bothersome to patient. observe for now. [id number] JUDE Álvarez, [facility], [address] [place] [address] 11/13/2018 08:57:38 11/14/2018 08:17:27 Benign essential hypertension 5113600 I10 improved- continue chlorthali sone- pt decreased to 1/2 tac- check bmp- f/u PCP in 2 months-devi ner as needed Essential hypertension 60247195 I10 Depressive disorder 3548 9007 F32.9 improvemen t in sleep, exercise- activities . situationa l due to work stress/danie assment at job- discussed staying on med c 6-12 months- f/u with PCP [id number] Ana Erazo NP , [facility], [address] [place] [address] 12/07/2018 15:17:39 12/08/2018 08:19:58 Depressive disorder 13632196 F32.9 note for rtw - f/u for pha and prn [id number] Hermila Sung NP , [facility], [address] [place] [address] 01/18/2019 08:27:38 01/19/2019 08:26:01 Anxiety 09854834 F41.9 Situationa l anxiety/pa herrera - note given to patient to return back to work on february 09, 2019. Patient will also f/u with [facility]. F/u with PCP as planned in January. Come back sooner if needing work note changes/ex tended. [id number] Lauryn Cruz MD , [facility], [address] [place] [address] 02/22/2019 09:51:41 02/22/2019 11:09:06 Adult health examination 579546851 Z00.00 see Risk Assessment and Lifestyle Change Counseling section above Counseling 473528797 Z71 .9 Depression screening 171 082309 Z13.89 depression screening tool administer ed, entered into emr, scored and discussed, time greater than 7.5 minutes Essential hypertension 45908094 I10 on chlorthali done Anxiety 92316154 F41.9 Depressive disorder 3548 9007 F32.9 [id number] Lauryn Cruz MD , [facility], [address] [place] [address] 08/27/2019 09:59:44 08/27/2019 13:48:33 Essential hypertension 31391543 I10 on chlorthali done stable Active or passive immunization 376808556 Z23 Depressive disorder 3548 7 F32.9 will increase paroxetine as it helps sleep Knee pain [id number] M25.5 69 likley osteoarthr itis will work to increase strength consider pt [id number] JUDE Álvarez , [facility], [address] [place] [address] 09/17/2019 11:33:19 09/17/2019 11:57:00 Pain in left knee [id number] M25.813 [id number] Maria Eugenia tamez, PT Physical Therapy, [facility] [address] [place] [address] 09/24/2019 08:56:46 09/24/2019 10:41:39 Pain in left knee [id number] M25.782 [id number] Maria Eugenia tamez, PT Physical Therapy, [facility] [address] [place] [address] 10/01/2019 09:49:50 10/01/2019 10:32:59 Pain in left knee [id number] 41994 M25.131 [id number] Maria Eugenia tamez, PT Physical Therapy, [address] [address] 2019 10:27:59 2019 13:23:39 Pain in left knee [id number] 78837 M25.978 [id number] Ellen Gaxiola MD , [facility], [address] [place] [address] 06/10/2020 09:58:01 06/11/2020 11:44:11 Orthopnea [id number] R06.01 subacute sx over the past monthcanno t get breath lying down or at times with exertionha s fluttering in his chest and pressure at timesblood pressure elevated todaysuspe ct cardiac origin of sxwant to see in office urgently for ascultatio n, EKG, CXRwe will set this uphe is in no acute distress or sx during the phone visithe will call or go to ED if any acute chest pain or severe SOBnote he has no fatigue/ma laise/feve r/chills or sx of infection Essential hypertension [id number] I10 not at goalsee notes aboveeval in office pending [id number] Aileen Roberts MD , [facility], [address] [place] [address] 06/10/2020 11:44:08 06/11/2020 12:08:18 Dyspnea [id number] R06.00 acute PND; no s/x chf on examCOVID seems unlikely but will test given dry cough Benign ess ential hypertension 0573242 I10 very uncontroll ed, add amlodipine follow up 2 daysEKG no obvious findings [id number] Aileen Roberts MD , [facility], [address] [place] [address] 06/12/2020 16:36:08 06/13/2020 11:52:37 Essential hypertension [id number] I10 well controlled and at goal today; advised to watch for edema from amlodipine ; continue taking meds daily; check BP 3-4 times a week with home cuff; follow up one month [id number] JUDE Álvarez , [facility], [address] [place] [address] 07/04/2020 09:59:22 07/07/2020 16:06:48 Edema of foot [id number] R60.0 SUSPECT S/E FROM AMLODIPINE , SOB IMPROVED- CHECK LABS- F/U WITH RESULTS, BP CONTROLLED - will check labs and f/u with results-- liver enzymes elevated- review at next visit Major depr essive disorder [id number] F32.0 PT REPORTED TODAY- NOT TAKING PAROXETINE - will f/u at 07/17 visit. [id number] Lauryn Cruz MD , [facility], [address] [place] [address] 07/17/2020 11:39:16 07/29/2020 14:07:38 Depressive disorder [id number] F32.9 will restart paroxetine and f/u [id number] Lauryn Cruz MD , [facility], [address] [place] [address] 05/07/2021 15:34:39 05/07/2021 16:32:58 Adult health examination [id number] Z00.00 see Risk Assessment and Lifestyle Change Counseling section above Counseling [id number] Z71 .9 including cardiovasc ular risk reduction counseling Depression screening 171 818754 Z13.31 depression screening tool administer ed, entered into emr, scored and discussed, time greater than 7.5 minutes Screening for alcohol abuse 130042116 Z13.39 Essential hypertension 12287346 I10 on chlorthali done stable Screening for malignant neoplasm of colon 253035709 Z12.11 Referral for a DIRECT booked colonoscop y. This patient is a healthy ASA Class 1 or 2 patient (only mild systemic disease), or a STABLE, well controlled insulin dependent diabetic. They do not have serious cardiac disease ie UT/angiopl asty within 1 year, symptomati c CHF; renal failure with CKD 4 or 5; take Coumadin, Plavix, Aggrenox, etc. Active or passive immunization [id number] Z23 Primary er ectile dysfunction [id number] N52.9 Health Concerns Section Related Observation LastModified by Organization Detai ls LastModified Time None Recorded Concern Status LastModified by Organization Details LastModified Time None Recorded Advance Directives Directive N: not interested @ this lázaro e Payers Encounter Date Sequence Insurance Name Policy Number Policy Wren Covered Member ID Wren Member ID Guarantor Name 06/10/2020 1 [facility] Jose James Boubacar [id number] Jose James Boubacar 06/12/2020 1 [facility]) Jose Ramirez Boubacar [id number] Jose James Boubacar 07/04/2020 1 [facility]) Jose James Boubacar [id number] Jose James Boubacar 07/17/2020 1 [facility]) Jose Ramirez Boubacar [id number] Jose Ramirez Boubacar 05/07/2021 1 [place]: [employer] Dustin F Medina [id number] Jose James Boubacar Notes Date Note Type Note Provider Name and Address Organization Details Recorded Time 0 text/html Patient agreed to this visit via phone or secure telehealth platform due to the COVID -19 pandemic. Patient understands this is a scheduled visit and the usual procedures with regard to billing and confidentiality apply. Patient was notified that the provider location is [facility] Patient location: home During the visit the patient? s medical history and medical record were reviewed. The patient was notified to call our office for worsening or urgent symptoms. Thinks he might have the COVID States it is a breathing thing Has had seasonal allergies in the past but not this year Started two weeks ago, noted some SOBdozes off and then wakes up struggling to breaththis has never happened to him beforehe feels much better if he sits up, that is all it takes to feel betterlast night he tried to sleep in a recliner but he still got SOBhe has the SOB when he relaxeshe also got SOB when stressed trying to set up the computer has a cough, a while , thought was allergies but this SOB is differentthe cough is dryhe does have some congestion in the sinus' but again feels more chronic this time of yearhe does not have a sore throathe feels some fluttering or pressure in his chestno painthis is a not certain time and doesn't happen oftenno heart burn or refluxhe does not note swelling denies fever or chills, unusual fatiguenever smoker Ellen Gaxiola MD [address] [place] [address], [phone], [facility] 06/12/2020 15:34:43 0 text/html SK - seen in person. SOB at night started a few days ago; no chest pain, pressure or arm or jaw feelings with that. Patient agreed to this visit via phone or secure telehealth platform due to the COVID -19 pandemic. Patient understands this is a scheduled visit and the usual procedures with regard to billing and confidentiality apply. Patient was notified that the provider location is [facility] Patient location: home During the visit the patient? s medical history and medical record were reviewed. The patient was notified to call our office for worsening or urgent symptoms. Thinks he might have the COVID States it is a breathing thing Has had seasonal allergies in the past but not this year Started two weeks ago, noted some SOBdozes off and then wakes up struggling to breaththis has never happened to him beforehe feels much better if he sits up, that is all it takes to feel betterlast night he tried to sleep in a recliner but he still got SOBhe has the SOB when he relaxeshe also got SOB when stressed trying to set up the computer has a cough, a while , thought was allergies but this SOB is differentthe cough is dryhe does have some congestion in the sinus' but again feels more chronic this time of yearhe does not have a sore throathe feels some fluttering or pressure in his chestno painthis is a not certain time and doesn't happen oftenno heart burn or refluxhe does not note swelling denies fever or chills, unusual fatiguenever smoker Aileen Roberts MD [address] [place] [address], [phone], [facility] 06/10/2020 16:58:40 0 text/html started amlodpine taken 1 dose and so far tolerating well.BP much improved. BP much lower, his symptoms have resolved. COVID test negative (as expected), he did not do otehr labs. as he's feeling better, no need to do them now. Aileen Roberts MD [address] [place] [address], [phone], [facility] 06/13/2020 07:01:46 0 text/html reviewed pts hx- seen in office for sob- pt states that has not resolved- was tx with amlodipine- check PB's have been in low 130'2 or less, noticing swelling in feet this wk, decreased with elevation.had not done labs BNP. Patient agreed to this visit via phone or secure telehealth platform due to the COVID -19 pandemic. Patient understands this is a scheduled visit and the usual procedures with regard to billing and confidentiality apply. Patient was notified that the provider location is [facility] Patient location: home During the visit the patient? s medical history and medical record were reviewed. The patient was notified to call our office for worsening or urgent symptoms. JUDE Álvarez [address] [place], [address], [facility] 07/04/2020 21:39:14 0 text/html Pt stated he is feeling ok, noticed some swelling in his ankles and some irritability that he is not sure why. Pt states he has not been taking Paroxetine for the past month due to ordering issues with pharmacy, says he feels ok not taking it.would like to be back on paroxetineno chest pain or sobPatient agreed to this visit via phone or secure telehealth platform due to the COVID -19 pandemic. Patient understands this is a scheduled visit and the usual procedures with regard to billing and confidentiality apply. Patient was notified that the provider location is [facility] Patient location: home During the visit the patient? s medical history and medical record were reviewed. The patient was notified to call our office for worsening or urgent symptoms. Lauryn Cruz MD [address] [place], [address], [facility] 07/27/2020 20:10:07 1 text/html Physical Exam/MaleReported bypatient.PHAPatient is here for a Wellness Visit. He describes his health status as good. Patient's health is better than last year.Notes:tolerating medsRisk Assessment and Lifestyle Change Counseling 50-64Reported bypatient.Safety Risk Assessment:No evidence of abuse/neglect; Do you feel safe in your current relationship?YES; Have you ever been a victim of physicial/emotional/sexua l abuse?NO (as a child); Concerns for alcohol or drug abuse?NORisk Assessment and Lifestyle Change Counseling 65+ (Medicare)Reported bypatient.Safety Risk Assessment:No grab bars in bathroom; Has rails on steps; No falls Functional Status:Patient does not have trouble hearing the television or radio when others do not.;Patient has to strain or struggle to hear/understand conversations.; Patient does not need help with preparing meals, transportation, shopping, taking medicine, managing finances, or other activities of daily living.;Patient has visual loss that interfers with daily activities; Does not live alone; Patient reports no falls in the past 6 months.Risk Assessment and Lifestyle Change Counseling-male 50-64Reported bypatient.Coronary Artery Disease Risk Assessment:Family History of Coronary Artery Disease;Does not participate in regular exercise program; Eats a diet low in fats and high in fiber;Personal history of hypertension; Lipids in good range; No personal history of diabetes; No use of tobacco; No history of peripheral vascular disease, AAA, or carotid disease; No personal history of coronary artery disease Colon Cancer Risk Assessment:No family history of colon polyps or cancer; No history of adenomatous colon polyps Lung Cancer Risk Assessment:Never smoked Risk for Sexually transmitted disease Assessment:Monogamous relationship Cognitive/Behavioral Risk Assessment:No history of depression Safety Risk Assessment:uses seat belts; No evidence of abuse/neglect; Do you feel safe in your current relationship?YES; Have you ever been a victim of physical/emotional/sexual abuse?NO Diet:Counseled about appropriate portion size; Counseled about eating a diet low in trans and saturated fats and high in fiber, fruits and vegetables Exercise counseling:Discussed the importance of daily physical activity Safety:Counseled about protecting skin from the sun and lowering the risk of skin cancer workDiscussed the importance of a health care proxy and advanced directivesVMG HypertensionReported bypatient.Context:No ischemic heart disease; No kidney disease; No history of CVA; No congestive heart failure; No history of transient ischemic attacks; No peripheral vascular disease; No history of diabetes Control:BP Goal less than (140/90); Treated with medications Compliance:Compliant with medications; Compliant with diet; Compliant with exercise; Compliant with follow-up visits Associated Symptoms:No chest pain; No shortness of breath; No edema; No fatigue; No palpitations; No decline in exercise capacity; No snoring has struggled with harrassment at work but feeling better Lauryn Cruz MD [address] [place] [address], [phone], [facility] 05/10/2021 20:40:56
== END 2024-12-27 10:34 | disposition home or self-care (01) ==
PROVIDERS: PCP Family Medicine; Visit Provider Nurse Practitioner Family
DX: G47.33 Obstructive sleep apnea (adult) (pediatric) (principal); G47.50 Parasomnia, unspecified
CPT/HCPCS: 99213

== ENCOUNTER → 2024-12-27 09:26 | Outpatient (BNVA) | payer MEDICARE, SELFPAY | PROVIDERS: PCP Family Medicine; Visit Provider Nurse Practitioner Family | DX: G47.33 Obstructive sleep apnea (adult) (pediatric) (principal); G47.50 Parasomnia, unspecified; Z99.89 Dependence on other enabling machines and devices | CPT/HCPCS: 99212 ==

== ENCOUNTER 2025-03-20 10:20 | Outpatient (AMB) | payer MEDICARE, SELFPAY ==
[2025-03-20 10:24] VITALS: BP 128/74; PULSE 82; O2SAT 95; BMI 29.6
--- NOTE | 2025-03-20 10:24 | A.OFFVIS_ITS ---
Vital Signs 03/20/25 10:24 Height 5 ft 10 in Weight 206 lb 2 oz BMI 29.6 BP 128/74 Blood Pressure Location Lt brachial Position Sitting Pulse 82 Pulse Source Pulse Oximeter Pulse Oximetry (%) 95 Oxygen Delivery Method Room Air Intake Visit Reasons: 3 mnts for sleep per K.H Intake Note: Patient presents follow up SHARMAINE. Compliance in chart. Allergies No Known Allergies Allergy (Verified 03/20/25 10:27) HPI Comments Details: 69 yr. old male presents for follow-up visit following in-lab sleep PSG study. 03/21/2024 in-lab PSG, which showed severe SHARMAINE w AHI 52/hr (predominantly d/t hypopneas) and O2 torres 83% with avg. O2 91%. 07/18/2024 f/u in-lab PAP titration PSG, showed stabilization of oxygenation in breathing on CPAP, best at CPAP 12 cmH2O with a Resmed medium N20 mask. Patient states he tolerated the in-lab PAP titration study well, however he stated that his nasal passages feel as if they were more open and the pressure was strong. He started CPAP therapy in Dec /January time frame as he was having some difficulties with adjustment to mask and pressures. States his son uses CPAP and finds great benefit from it also. Thus, discussed that we could start CPAP at a lower pressure, as breathing and oxygenation levels began to stabilize at a lower pressure even at 8 cm H2O, however patient would like to just start at CPAP 12 cm H2O. I suggested that we start CPAP 12 cmH2O with EPR set to FT 2, in hopes this will increase the likelihood that he will tolerate CPAP therapy, which patient agreed to. He continues to snoring, and has fragmented sleep patterns, with daytime fatigue. He has not had any parasomnias in several months, in the past he has kicked the wall while dreaming that he was being attacked and is using paroxetine 20mg daily. He denies morning headaches and RLS. He does have pain in the back of his L. leg, sharp electric shock like pain once in a while when he stands up from sleep. 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 He washes his mask daily, changes his filters and water in the reservoir weekly. [facility] Surgical History Status post surgical removal of malignant neoplasm of skin History of hernia repair Hx of appendectomy Family History Father Cancer Hypertension Mother Hypertension Brother COPD (chronic obstructive pulmonary disease) Hypertension Brother Heart disease Social History Household Members: Spouse and Children Housing: Apartment Alcohol intake: current Comment: Ocassionaly and rare Patient Tobacco Use Status: Never used Tobacco Physical Exam Vital Signs: Last Vital Signs Pulse 82 03/20/25 10:24 BP 128/74 03/20/25 10:24 Pulse Ox 95 03/20/25 10:24 Oxygen Delivery Method Room Air 03/20/25 10:24 BMI result Body Mass Index 29.6 Const General: no acute distress Orientation/consciousness: patient oriented x3 Resp Effort & Inspection: able to speak in complete sentences Neuro General: patient oriented x3 Psych Mental Status: mental status grossly normal Speech and movement: Clear speech present Attitude: cooperative Results Reviewed Results Reviewed: SHARMAINE compliance report 11/2024 - 02/2025 Avg use 21.90 days 23% Avg use total days 1 hour and 29min Cpap 12 cmH20 Leaks [id number] AHI 15 Patient picked up machine in Dec 2024 and had several issues with mask and pressures and needed titration. Assessment & Plan Assessment & Plan (1) Parasomnia: Code(s): G47.50 - Parasomnia, unspecified Category: Medical Qualifiers: Parasomnia type: unspecified parasomnia Qualified Code(s): G47.50 - Parasomnia, unspecified (2) Severe obstructive sleep apnea: Comment: 03/21/2024 in-lab PSG, severe SHARMAINE w/ AHI 52/hr (predominantly d/t hypopneas), O2 torres 83% and average SpO2 91%. Code(s): G47.33 - Obstructive sleep apnea (adult) (pediatric) Category: Medical (3) Fatigue due to sleep pattern disturbance: Code(s): R53.83 - Other fatigue; G47.9 - Sleep disorder, unspecified Category: Medical (4) Left leg pain: Code(s): M79.605 - Pain in left leg Category: Medical Plan Reviewed PSG and titration pressures today with patient today along with the importance of compliance and sleep hygiene. Start CPAP 12 cmH2O w/ EPR 3 nightly > 4 hours for compliance but encouraged to get to 6 hours for REM sleep initiation. Monitor for Parasomnias, continue Paxil 20mg PO daily. If parasomnias persist with optimal SHARMAINE tx, will monitor for s/s neurodegenerative d/o s/s. Fatigue will check labs for deficiencies, anemia, electrolyte abnormalities, B12/MMA/Homocysteine/ Ferritin/ CBC/ CMP/ TSH/ L. Leg electric shock - like pain will monitor for RLS? Neuropathy? strain? Tear? Keep areas around bed free of clutter. Fragmented sleep increase Melatonin 6mg PO daily at dinner or around 5pm, whichever is 3 hours from bedtime. F/U in 3 months for compliance. Orders: Orders Comprehensive Met. Panel Today G47.9 - Sleep disorder, unspecified, R53.83 - Other fatigue Ferritin Today G47.9 - Sleep disorder, unspecified, R53.83 - Other fatigue Homocysteine Today G47.9 - Sleep disorder, unspecified, R53.83 - Other fatigue TSH reflex Free T4 Today G47.9 - Sleep disorder, unspecified, R53.83 - Other fatigue Complete Blood Count no Diff Today G47.9 - Sleep disorder, unspecified, R53.83 - Other fatigue Hemoglobin A1c Today G47.9 - Sleep disorder, unspecified, R53.83 - Other fatigue Methylmalonic Acid Today G47.9 - Sleep disorder, unspecified, R53.83 - Other fatigue Vitamin B12 and Folate Today G47.9 - Sleep disorder, unspecified, R53.83 - Other fatigue Vitamin D 25-OH Total Today G47.9 - Sleep disorder, unspecified, R53.83 - Other fatigue Patient Instructions: Sleep Hygiene provided: set a scheduled bedtime and wake time to help regulate the circadian rhythm and balance the release of pituitary hormones. Sleep in a dark room, temperatures below 68 degrees, and no devices n bed. Limit caffeinated products 6 hours prior to bed, and limit fluids 2-4 hours prior to bed. Gentle night yoga, diffusing essential oils, and playing soft music can be relaxing. Fragmented sleep: paxil 20mg daily do not skip a dose. Fragmented sleep: continue Melatonin 6mg daily 3 hours prior to bedtime. CPAP compliance 4-6 hours every single night. Coding Level of Care Code Est Pt Level 4 (78721) Diagnoses Parasomnia, unspecified type G47.50 Parasomnia type: unspecified parasomnia Severe obstructive sleep apnea G47.33 Fatigue due to sleep pattern disturbance R53.83; G47.9 Left leg pain M79.605 Time Spent (min) 30
--- OUTSIDE RECORDS SUMMARY | 2025-03-20 12:06 | XMS_ITS | Encounter Summary ---
Author Organization [employer] Address [address] [place] [address] Care Team Providers Care Sanitarian Inspector Name Role Phone Argenis Mitchell MD Primary Care Provider [phone] Bird Fields PharmD Unavailable [phone] Reason for Visit * Reason Onset Date Comments shobha recall 03/15/2025 Encounter Details Date Type Department Care Team (Late st Contact Info) Description 03/15/2025 Telephone [facility] [address] [place], [place] [phone] Anais Warner MA april recall Social History Tobacco Use Types Packs/Day Years Used Date Smoking Tobacco: Never Smokeless Tobacco: Never Alcohol Use Standard Drinks/Week Comments Never 0 (1 standard drink = 0.6 oz pur e alcohol) Depression Answer Date Recorded Patient Health Questionnaire-9 Score 0 09/12/2024 Patient Health Questionnaire-9 Score 0 09/12/2024 Last PHQ-9: Questionnaire Data Not on file 1 Housing Stability Answer Date Recorded What is your housing situation today? I have yoliekimberly alan 09/14/[address] you li ve. Do you have problems with any of the following? None of the above 09/14/2023 Food Insecurity Answer Date Recorded Within the past 12 months, y ou worried that your food would run out before you got money to buy more: Never True 09/14/2023 Within the past 12 months,th e food you bought just didn't last and you didn't have enough money to get more: Never True Transportation Answer Date Recorded In the past 12 months, has l ack of transportation kept you from medical appts, meetings, work or from getting things needed for daily living? Yes, it has kept me from medical appointments or getting medications. 09/04/2023 Utilities Answer Date Recorded In the past 12 months, has t he electric, gas, oil or water company threatened to shut off services in your home? No 09/14/2023 Depression Answer Date Recorded Patient Health Questionnaire-2 Score 0 09/12/2024 Sex and Gender Information Value Date Recorded Sex Assigned at Male 09/27/2022 10:40 AM EDT Legal Sex Male 10:40 AM EDT Gender Identity Male 09/27/2022 10:40 AM EDT Sexual Orientation Choose not to disclose 2021 10:40 AM EDT documented as of this encounter Miscellaneous Notes * Telephone Encounter - Anais Warner MA - 03/15/2025 1:55 PM EDT ..Telephone call to patient to schedule a recall appointment. No answer, Left voicemail to return call to clinic.. Recall letter sent. Visit type: Office Visit Appointment notes: DM due: April With: Stephen Please schedule appointment above if patient returns call documented in this encounter Plan of Treatment Not on file documented as of this encounter Visit Diagnoses Not on filedocumented in this encounter Additional Health Concerns Assessment Noted Time PHQ-9 Depression Total Score: 0 09/12/20 24 9:31 AM EDT documented as of this encounter Care Teams Sanitarian Inspector Relationship Specialty Start Date End Date Argenis Mitchell MD [address] [place] [id number] PCP - General Family Medicine 09/10/22 Bird Fields, Darlin [address] [place] [address] Pharmacist Internal Medicine 08/27/24 documented as of this encounter
--- OUTSIDE RECORDS SUMMARY | 2025-03-20 12:06 | XMS_ITS | Encounter Summary ---
Author Organization [employer] Address [address] [facility] [address] [place] [address] Care Team Providers Care Computer Science Instructor Name Role Phone Argenis Mitchell MD Primary Care Provider [phone] Bird Fields PharmD Unavailable [phone] Encounter Details Date Type Department Care Team (Late st Contact Info) Description 11/29/2023 Abstract [facility] MEDICINE [address] [place], [place] [phone] Argenis Mitchell MD [address] [place], [place] [phone] Social History Tobacco Use Types Packs/Day Years Used Date Smoking Tobacco: Never Smokeless Tobacco: Never Alcohol Use Standard Drinks/Week Comments Never 0 (1 standard drink = 0.6 oz pur e alcohol) Housing Stability Answer Date Recorded What is your housing situation today? I have yolie alan 09/14/[address] you [...] Date Recorded Patient Health Questionnaire-2 Score 0 04/06/2023 Sex and Gender Information Value Date Recorded Sex Assigned at Male 09/27/2022 10:40 AM EDT Legal Sex Male 10:40 AM EDT Gender Identity Male 09/27/2022 10:40 AM EDT Sexual Orientation Choose not to disclose 2021 10:40 AM EDT documented as of this encounter Plan of Treatment Not on file documented as of this encounter Procedures Procedure Name Priority Date/Time Associated Diagnosis Comments COLONOSCOPY Routine 09/23/2021 documented in this encounter Results * (ABNORMAL) Colonoscopy (09/23/2021) Colonoscopy Abnormal(A ) Normal Argenis Mitchell MD HEALTH MAINTENANCE Final Result documented in this encounter Visit Diagnoses Not on filedocumented in this encounter Care Teams Computer Science Instructor Relationship Specialty Start Date End Date Argenis Mitchell MD [address] [place] [address] PCP - General Family Medicine 09/10/22 Bird Fields, Darlin [address] [place] [address] Pharmacist Internal Medicine 08/27/24 documented as of this encounter
--- OUTSIDE RECORDS SUMMARY | 2025-03-20 12:06 | XMS_ITS | Encounter Summary ---
Author Organization [employer] Address [address] [place] [address] 7 [place] [address] Care Team Providers Care Guard Lieutenant Name Role Phone Argenis Mitchell MD Primary Care Provider Bird Fields PharmD Unavailable [phone] Reason for Visit * Reason Comments Med Refill Encounter Details Date Type Department Care Team (Late st Contact Info) Description 10/24/2024 Refill [facility] MEDICINE [address] [place], [place] [phone] Argenis Mitchell MD [address] [place] [address] Type 2 diabetes mellitus without complication, without long-term current use of insulin ([facility]) Social History Tobacco Use Types Packs/Day Years [...] documented as of this encounter Visit Diagnoses Diagnosis Type 2 diabetes mellitus without complication, without long-term current use of insulin ([facility]) documented in this encounter Additional Health Concerns Assessment Noted Time PHQ-9 Depression Total Score: 0 09/12/20 24 9:31 AM EDT documented as of this encounter Care Teams Guard Lieutenant Relationship Specialty Start Date End Date Argenis Mitchell MD [address] [place] [address] PCP - General Family Medicine 09/10/22 Bird Fields PharmD [address] [place] [address] Pharmacist Internal Medicine 08/27/24 documented as of this encounter
--- OUTSIDE RECORDS SUMMARY | 2025-03-20 12:06 | XMS_ITS | Encounter Summary ---
Author Organization [employer] Address [address] [place] [address] [address] [place] [address] Care Team Providers Care Police Patrol Lieutenant Name Role Phone Argenis Mitchell MD Primary Care Provider [phone] Bird Fields PharmD Unavailable [phone] Reason for Referral * Consultation (Routine) - Closed Specialty Diagnoses / Procedures Referred By Contac t Referred To Contact Pharmacy Diagnoses Type 2 diabetes mellitus without complication, without long-term current use of insulin (CMS/HCC) Essential hypertension Argenis Mitchell MD [address] [place] [address] Phone: tel: fax: Referral ID Status Reason Start Date Expiration Date V isits Requested Visits Authorized [id number] Closed Consult and Treat 03/13/2024 03/13/2025 1 1 Scheduling Instructions Worsening glycemic control and borderline BP. Patient was on hydrochlorothiazide, but halved its dose due to low potassium. Encounter Details Date Type Department Care Team (Late st Contact Info) Description 03/13/2024 Orders Only [facility] MEDICINE [address] [place], [place] [phone] Argenis Mitchell MD [address] [place], [place] [phone] Type 2 diabetes mellitus without complication, without long-term current use of insulin (CMS/HCC) (Primary Dx); Essential hypertension Social History Tobacco Use Types Packs/Day Years [...] as of this encounter Plan of Treatment Scheduled Referrals Name Type Priority Associated Diagnoses Orde r Schedule Referral to Pharmacy CDTM Outpatient Referral Routine Type 2 diabetes mellitus without complication, without long-term current use of insulin ([facility]) Essential hypertension Ordered: 03/13/2024 documented as of this encounter Visit Diagnoses Diagnosis Type 2 diabetes mellitus without complication, without long-term current use of insulin (CMS/[facility])- Primary Essential hypertension Unspecified essential hypertension documented in this encounter Care Teams Police Patrol Lieutenant Relationship Specialty Start Date End Date Argenis Mitchell MD [address] [place] [address] PCP - General Family Medicine 09/10/22 Bird Fields, PharmD [address] [place] [address] Pharmacist Internal Medicine 08/27/24 documented as of this encounter
--- OUTSIDE RECORDS SUMMARY | 2025-03-20 12:06 | XMS_ITS | Encounter Summary ---
Author Organization [employer] Address [address] [place] [address] 7 [place] [address] Care Team Providers Care Fire Hydrant Mechanic Name Role Phone Argenis Mitchell MD Primary Care Provider Bird Fields PharmD Unavailable [phone] Reason for Referral * Consultation (Routine) - Authorized Specialty Diagnoses / Procedures Referred By Carter boles Referred To Contact Pharmacy Diagnoses Type 2 diabetes mellitus with hyperglycemia, without long-term current use of insulin (CMS/HCC) Essential hypertension Argenis Mitchell MD [address] [place] [address] Phone: tel: fax: Referral ID Status Reason Start Date Expiration Date Visits Requested Visits Authorized [id number] Authorized Consult and Treat 10/09/2024 10/09/2025 6 6 Encounter Details Date Type Department Care Team (Late st Contact Info) Description 10/09/2024 Orders Only [facility] MEDICINE [address] [place], [place] [phone] Argenis Mitchell MD [address] [place], [place] [phone] Type 2 diabetes mellitus with hyperglycemia, without long-term current use of insulin (CMS/HCC) [...] Diagnoses Orde r Schedule Referral to Pharmacy CD Outpatient Referral Routine Type 2 diabetes mellitus with hyperglycemia, without long-term current use of insulin ([facility]) Essential hypertension Ordered: 10/09/2024 documented as of this encounter Visit Diagnoses Diagnosis Type 2 diabetes mellitus with hyperglycemia, without long-term current use of insulin (CMS/[facility])- Primary Essential hypertension Unspecified essential hypertension documented in this encounter Additional Health Concerns Assessment Noted Time PHQ-9 Depression Total Score: 0 09/12/20 24 9:31 AM EDT documented as of this encounter Care Teams Fire Hydrant Mechanic Relationship Specialty Start Date End Date Argenis Mitchell MD [address] [place] [address] PCP - General Family Medicine 09/10/22 Bird Fields, LakeshaD [address] [place] [id number] Pharmacist Internal Medicine 08/27/24 documented as of this encounter
--- OUTSIDE RECORDS SUMMARY | 2025-03-20 12:06 | XMS_ITS | Clinical Summary ---
Author Organization [employer] Address [address] [place] [address] [address] [place] [address] Care Team Providers Care Radiologist Name Role Phone Argenis Mitchell MD Primary Care Provider [phone] Bird Fields PharmD Unavailable [phone] Allergies No known active allergies Medications Alcohol Swabs (Alcohol Prep) pads Active glucose blood (OneTouch Verio) test strip insert 1 by into machine route 3 times every day 08/12/20 22 Active Lancets (onetouch ultrasoft) lancets 1 each by Other route if needed. Use as instructed Active metFORMIN XR (Glucophage-XR) 500 MG 24 hr tabletIndication s:Type 2 diabetes mellitus without complication, without long-term current use of insulin ([facility]) Take 2 tablets by mouth twice a day with meal 360 tablet 3 05/28/20 24 Active amLODIPine (Norvasc) 10 MG tablet Take 1 tablet (10 mg) by mouth Once per day. 90 tablet 3 09/12/20 24 Active PARoxetine (Paxil) 20 MG tabletIndication s:Insomnia secondary to anxiety TAKE 1 TABLET BY MOUTH EVERYDAY AT BEDTIME 90 tablet 3 11/14/20 24 Active chlorthalidone (Hygroton) 25 MG tabletIndication s:Essential hypertension TAKE HALF A TABLET BY MOUTH EVERY DAY 45 tablet 3 02/13/20 25 Active lisinopril 40 MG tabletIndication s:Essential hypertension TAKE 1 TABLET BY MOUTH EVERY DAY IN THE MORNING 90 tablet 3 02/13/20 25 Active atorvastatin (Lipitor) 10 MG tabletIndication s:Dyslipidemia TAKE 1 TABLET BY MOUTH EVERYDAY AT BEDTIME 100 tablet 1 03/12/20 25 Active atorvastatin (Lipitor) 10 MG tabletIndication s:Dyslipidemia TAKE 1 TABLET BY MOUTH EVERYDAY AT BEDTIME 100 tablet 3 02/21/20 24 025 Discontinued Active Problems Problem Noted Date Diagnosed Date Basal cell carcinoma (BCC) of skin of neck 09/12 Assessment & Plan (12/24/2024 12:36 PM EST): - patient was evaluated by wood miller on 08/09/24. Shaved biopsy done which revealed basal cell carcinoma - s/p excisional biopsy by plastic surgeon on 09/06/24 Assessment & Plan (09/12/2024 10:05 AM EDT): - patient was evaluated by wood miller on 08/09/24. Shaved biopsy done which revealed basal cell carcinoma - s/p excisional biopsy by plastic surgeon on 09/06/24 Melanoma of scalp 09/12/2024 Assessment & Plan (12/24/2024 12:35 PM EST): - patient was evaluated by wood miller on 08/09/24. Shaved biopsy done which revealed melanoma - s/p excisional biopsy by plastic surgeon on 09/06/24 - s/p skin graft on 10/18/24 Assessment & Plan (09/12/2024 10:05 AM EDT): - patient was evaluated by wood miller on 08/09/24. Shaved biopsy done which revealed melanoma - s/p excisional biopsy by plastic surgeon on 09/06/24 Obesity 11/25/2023 Assessment & Plan (09/12/2024 1:42 PM EDT): - work on lifestyle modification - evaluate for SHARMAINE Assessment & Plan (11/25/2023 9:06 AM EST): - work on lifestyle modification - evaluate for SHARMAINE Colon polyps 11/25/2023 Assessment & Plan (03/05/2024 11:50 PM EDT): - multiple polyps, last colonoscopy by Dr. Daquan Woodson on 09/23/21 - recommended to repeat colonoscopy in 3 years. Pt is due for a colonoscopy and will place a referral on next visit. Assessment & Plan (11/25/2023 9:34 AM EST): - multiple polyps, last colonoscopy by Dr. Daquan Woodson on 09/23/21 - recommended to repeat colonoscopy in 3 years Osteoarthritis of left knee 11/25/2023 Assessment & Plan (11/25/2023 9:36 AM EST): - previously evaluated by [facility] ortho in 2019 At increased risk for cardiovascular disease Assessment & Plan (05/30/2024 2:26 PM EDT): - 08/24/22 TTE LVEF 65-70%, no valvular pathology or regional wall motion abnormality - continue risk factor management Assessment & Plan (03/05/2024 11:42 PM EDT): - 08/24/22 TTE LVEF 65-70%, no valvular pathology or regional wall motion abnormality - consider evaluating coronary calcium score Assessment & Plan (11/25/2023 9:43 AM EST): - 08/24/22 TTE LVEF 65-70%, no valvular pathology or regional wall motion abnormality - consider evaluating coronary calcium score Skin lesion 04/07/2023 Assessment & Plan (03/05/2024 11:44 PM EDT): - Will refer to Dermatology for further evaluation and management. Assessment & Plan (11/24/2023 5:13 AM EST): - discussed about sun protection - discussed about skin cancer risk - most of the patches seem to be SKs. Will consider refer to derm clinic if there is any suspicious lesion Assessment & Plan (04/07/2023 5:35 AM EDT): - discussed about sun protection - discussed about skin cancer risk - most of the patches seem to be SKs. Will consider refer to derm clinic if there is any suspicious lesion Nocturia 04/07/2023 Assessment & Plan (03/05/2024 11:43 PM EDT): - 04/06/23 PSA 1.37 - consider referral to urologist - Will check PSA Assessment & Plan (11/25/2023 9:07 AM EST): - 04/06/23 PSA 1.37 - consider referral to urologist Assessment & Plan (04/07/2023 5:34 AM EDT): - check PSA - consider referral to urologist Insomnia 12/12/2022 Assessment & Plan (11/25/2023 9:16 AM EST): - consider CBT for ?anxiety - continue melatonin 3 mg at bedtime 2-3 hours prior to desired bedtime - evaluate for nocturia and optimize treatment for it - evaluate for SHARMANIE Assessment & Plan (04/07/2023 5:25 AM EDT): - consider CBT for ?anxiety - continue melatonin 3 mg at bedtime 2-3 hours prior to desired bedtime - evaluate for nocturia and optimize treatment for it Assessment & Plan (12/12/2022 10:37 AM EST): - consider CBT for ?anxiety - trial of melatonin 3 mg at bedtime 2-3 hours prior to desired bedtime Hordeolum externum of left lower eyelid 12/12/19 Assessment & Plan (12/24/2024 12:35 PM EST): - recommended to get evaluated by sifting operator and wood miller at every visit Assessment & Plan (11/24/2023 5:14 AM EST): - check stats of eye appt Assessment & Plan (04/07/2023 5:33 AM EDT): - check stats of eye appt Assessment & Plan (12/12/2022 10:39 AM EST): - check stats of eye appt Ill-fitting dentures 12/12/2022 Assessment & Plan (12/12/2022 10:40 AM EST): - check status of dental / oral surgeon appt SHARMAINE (obstructive sleep apnea) 11/02/2022 Assessment & Plan (12/24/2024 12:28 PM EST): - following with [facility] Sleep medicine clinic, last office visit in January 2024 - sleep study on 03/22/24, severe degeree of SHARMAINE. BABAR was 52/hr and torres O2 sat 83%. Recommended CPAP titration study. - full in-lab sleep study done on 07/09/24 and CPAP 12 cm H2O recommended. Patient has not received CPAP. Likely having another sleep study this Tuesday. Assessment & Plan (09/12/2024 10:03 AM EDT): - following with [facility] Sleep medicine clinic, last office visit in January 2024 - sleep study on 03/22/24, severe degeree of SHARMAINE. BABAR was 52/hr and torres O2 sat 83%. Recommended CPAP titration study. - full in-lab sleep study done on 07/09/24 and CPAP 12 cm H2O recommended. Patient has not received CPAP. Will check status. Assessment & Plan (05/30/2024 2:20 PM EDT): - following with [facility] Sleep medicine clinic, last office visit in January 2024 - sleep study on 03/22/24, severe degeree of SHARMAINE. BABAR was 52/hr and torres O2 sat 83%. Recommended CPAP titration study. - patient states he will contact sleep medicine clinic Assessment & Plan (11/25/2023 9:18 AM EST): - referred to sleep study clinic, refer again - normal PSA, consider urology referral if worsening or persistent nocturia after improving glycemic control - continue judicious use of melatonin Assessment & Plan (04/07/2023 5:24 AM EDT): - referred to sleep study clinic, but he did not receive a call back - sleeping better with melatonin, yet has nocturia - will try to evaluate for nocturia at this time - continue judicious use of melatonin Assessment & Plan (12/12/2022 10:37 AM EST): - evaluate with sleep study Dyslipidemia 11/02/2022 Assessment & Plan (12/24/2024 12:36 PM EST): - last lipid profile 03/07/24, low HDL and low LDL. - continue atorvastatin 10 mg at bedtime; consider increasing its dose - continue working on lifestyle modifications Assessment & Plan (09/12/2024 1:42 PM EDT): - last lipid profile 03/07/24, low HDL and low LDL. - continue atorvastatin 10 mg at bedtime; consider increasing its dose - continue working on lifestyle modifications Assessment & Plan (05/30/2024 2:26 PM EDT): - last lipid profile 03/07/24, low HDL and low LDL. - continue atorvastatin 10 mg at bedtime; consider increasing its dose - continue working on lifestyle modifications Assessment & Plan (03/05/2024 11:43 PM EDT): - last lipid profile 04/06/23 total cholesterol 129; triglyceride 166; HDL 30; LDL 75 - continue atorvastatin 10 mg at bedtime; consider increasing its dose - continue working on lifestyle modifications Assessment & Plan (11/25/2023 9:39 AM EST): - last lipid profile 04/06/23 total cholesterol 129; triglyceride 166; HDL 30; LDL 75 - continue atorvastatin 10 mg at bedtime; consider increasing its dose - continue working on lifestyle modifications Assessment & Plan (04/06/2023 11:02 AM EDT): - last lipid profile 07/28/22 TC 179; TG 296; HDL 26; LDL 114. - moderate to high intensity statin therapy is recommended - agreed to start atorvastatin 10 mg at bedtime - continue working on lifestyle modifications Assessment & Plan (12/12/2022 10:35 AM EST): - last lipid profile 07/28/22 TC 179; TG 296; HDL 26; LDL 114. - moderate to high intensity statin therapy is recommended - agreed to start atorvastatin 10 mg at bedtime - continue working on lifestyle modifications Erectile dysfunction 11/02/2022 Assessment & Plan (05/30/2024 2:28 PM EDT): - PSA 2.08 ng/ml on 03/07/24 - Testosterone 291 ng/dL on 03/07/24 - seen by urologist on 05/09/24, prescribed tadalafil. Patient self-discontinued due to back pain Assessment & Plan (03/05/2024 11:41 PM EDT): - previously on sildenafil - check PSA for nocturia Assessment & Plan (04/07/2023 5:33 AM EDT): - previously on sildenafil - check PSA for nocturia Essential hypertension 11/02/2022 Assessment & Plan (12/24/2024 12:33 PM EST): - Goal BP < 140/90 per JNC-8 and < 130/80 per ACC/AHA guideline (Treatment threshold >= 130/80 ) - BP at goal today - continue amlodipine 10 mg daily - continue lisinopril 40 mg - continue chlorthalidone 12.5 mg daily - continue working on lifestyle modifications - Follow up in 3-6 mo, sooner if any problem arises Assessment & Plan (09/16/2024 12:56 PM EDT): - Goal BP < 140/90 per JNC-8 and < 130/80 per ACC/AHA guideline (Treatment threshold >= 130/80 ) - BP not at goal today - Increase amlodipine to 10 mg daily - continue lisinopril 40 mg - continue chlorthalidone 12.5 mg daily - continue working on lifestyle modifications - Follow up in 3-6 mo, sooner if any problem arises Assessment & Plan (05/28/2024 10:40 AM EDT): - Goal BP < 140/90 per JNC-8 and < 130/80 per ACC/AHA guideline (Treatment threshold >= 130/80 ) - BP not at goal today - Continue amlodipine 5 mg daily (to avoid edema) - continue lisinopril 40 mg - continue chlorthalidone 25 mg daily - continue working on lifestyle modifications - Follow up in 3-6 mo, sooner if any problem arises Assessment & Plan (03/05/2024 11:40 PM EDT): - Goal BP < 140/90 per JNC-8 and < 130/80 per ACC/AHA guideline (Treatment threshold >= 130/80 ) - BP not at goal today - Continue amlodipine, but at 5 mg daily (to avoid edema) - continue lisinopril 40 mg - continue chlorthalidone 25 mg daily - continue working on lifestyle modifications - Follow up in 3-6 mo, sooner if any problem arises Assessment & Plan (11/25/2023 9:23 AM EST): - Goal BP < 140/90 per JNC-8 and < 130/80 per ACC/AHA guideline (Treatment threshold >= 130/80 ) - BP not at goal today - restart amlodipine, but at 5 mg daily (to avoid edema) - continue lisinopril 40 mg - continue chlorthalidone 25 mg daily - continue working on lifestyle modifications - Follow up in 3-6 mo, sooner if any problem arises Assessment & Plan (04/06/2023 11:03 AM EDT): - Goal BP < 140/90 per JNC-8 and < 130/80 per ACC/AHA guideline (Treatment threshold >= 130/80 ) - BP at goal today - continue amlodipine 10 mg daily, lisinopril 40 mg, chlorthalidone 25 mg daily - continue working on lifestyle modifications - Follow up in 3-6 mo, sooner if any problem arises Assessment & Plan (12/12/2022 10:36 AM EST): - Goal BP < 140/90 per JNC-8 and < 130/80 per ACC/AHA guideline (Treatment threshold >= 130/80 ) - BP at goal today - continue amlodipine 10 mg daily, lisinopril 40 mg, chlorthalidone 25 mg daily - continue working on lifestyle modifications - Follow up in 3-6 mo, sooner if any problem arises Type 2 diabetes mellitus 11/02/2022 Assessment & Plan (12/24/2024 12:34 PM EST): - Jun 2022 - HbA1C 7.0% on 12/24/24, slightly increased from 6.8% in Aug 2024 - Increase Metformin ER 500 mg x2 tablets BID, continue working on lifestyle modifications - foot exam done today 12/24/24, low risk - microalbumin test 03/07/24 UACR 10, no microalbuminuria - lipid profile 03/07/24 - last eye exam by Dr. Jara, [facility]. February 2024. No diabetic retinopathy. [facility]. Assessment & Plan (09/12/2024 1:42 PM EDT): - Jun 2022 - HbA1C 6.8% on 09/12/24 - Increase Metformin ER 500 mg x2 tablets BID, continue working on lifestyle modifications - foot exam done today 11/24/23 low risk - microalbumin test 03/07/24 UACR 10, no microalbuminuria - lipid profile 03/07/24 - last eye exam by Dr. Jara, [facility]. February 2024. No diabetic retinopathy. [facility]. Assessment & Plan (05/30/2024 2:25 PM EDT): - Jun 2022 - HbA1C 9.6% on 03/05/24, worsened from 8.8% on 11/24/23 - Increase Metformin ER 500 mg x2 tablets BID, continue working on lifestyle modifications - foot exam done today 11/24/23 low risk - microalbumin test 03/07/24 UACR 10, no microalbuminuria - lipid profile 03/07/24 - last eye exam by Dr. Jara, [facility]. February 2024. No diabetic retinopathy. Eye [facility]. Assessment & Plan (03/05/2024 11:51 PM EDT): - Jun 2022 - HbA1C 9.6% on 03/05/24, worsened from 8.8% on 11/24/23 - reviewed glucometer reading today, now normal - Increase Metformin ER 500 mg x2 tablets BID, continue working on lifestyle modifications - foot exam done today 11/24/23 low risk - microalbumin test 04/06/23 UACR 10, no microalbuminuria - lipid 04/06/23 total cholesterol 129; triglyceride 166; HDL 30; LDL 75 - last eye exam more than a year ago. Upcoming appointment in Dec 2023 with [facility]. Assessment & Plan (11/25/2023 9:25 AM EST): - Dx Jun 2022 - HbA1C 8.8% on 11/24/23, worsened from 6.5% on 04/06/23 - reviewed glucometer reading today, now normal - continue Metformin ER 500 mg once daily, (When suggested about bid dosing, pt was hesitant and states there is a room for improvement in his lifestyle. He agreed to take bid if his FBG is still > 150). - continue working on lifestyle modifications - foot exam done today 11/24/23 low risk - microalbumin test 04/06/23 UACR 10, no microalbuminuria - lipid 04/06/23 total cholesterol 129; triglyceride 166; HDL 30; LDL 75 - last eye exam more than a year ago. Upcoming appointment in Dec 2023 with [facility]. Assessment & Plan (04/06/2023 11:05 AM EDT): - Dx Jun 2022 - HbA1C 6.5% on 04/06/23, stable from 6.2% on 12/09/22 - reviewed glucometer reading today, now normal - continue Metformin ER 500 mg once daily - continue working on lifestyle modifications - foot exam done today 09/09/22 low risk - microalbumin test 09/09/22 UACR 8, no microalbuminuria - lipid 07/28/22 TC 179; TG 296; HDL 26; LDL 114. - last eye exam more than a year ago. Pt referred to [facility], but has not received appt yet. Will check its status Assessment & Plan (12/12/2022 10:26 AM EST): - Dx Jun 2022 - HbA1C 6.2% on 12/09/22, markedly improved from 9% in Jun 2023 - reviewed glucometer reading today, now normal - continue Metformin ER 500 mg once daily - continue working on lifestyle modifications - foot exam done today 09/09/22 low risk - microalbumin test 09/09/22 UACR 8, no microalbuminuria - lipid 07/28/22 TC 179; TG 296; HDL 26; LDL 114. - last eye exam more than a year ago. Pt referred to [facility], but has not received appt yet. Will check its status Encounters Date Type Department Care Team Description 03/15/2025 Telephone [facility] [address] [place] [address] Anais Warner MA shobha recall 03/12/2025 Refill [facility] [address] [place] [address] Argenis Mitchell MD Dyslipidemia 02/12/2025 Refill [facility] [address] [place] [address] Sadia Felix MD Essential hypertension 02/12/2025 Refill [facility] [address] [place] [address] Argenis Mitchell MD Essential hypertension 01/08/2025 Refill [facility] [address] [place] [address] Argenis Mitchell MD Essential hypertension 12/26/2024 Telephone [facility] [address] [place] [address] Anais Warner MA dme cpap 12/26/2024 Abstract [facility] [address] [place] [address] Anais Warner MA 12/24/2024 11:15 AM EST Office Visit [facility] [address] [place] [address] Argenis Mitchell MD Essential hypertension (Primary Dx); SHARMAINE (obstructive sleep apnea); Type 2 diabetes mellitus with hyperglycemia, without long-term current use of insulin (CMS/HCC); Melanoma of scalp (CMS/HCC); Basal cell carcinoma (BCC) of skin of neck; Dyslipidemia; Hordeolum externum of left lower eyelid from Last 3 Months Immunizations Name Administration Dates Next Due INFLUENZA VACCINE QUADRIVALE NT RECOMBINANT PRESERVATIVE FREE RIV4 09/22/2020 Influenza High-dose Quadriva lent Preservative Free 09/09/2022 Influenza injectable quadriv alent preservative free 11/24/2023,08/27/2019,08/21/2018,08/24,09/01/2016,09/16/2014,12/12/2013 Influenza, IIV3, injectable 10/25/2011 Influenza, seasonal, injecta ble, preservative free 09/12/2024,08/20/2013 Influenza, trivalent, adjuvanted 10/25/2011 Pfizer Covid-19 Vaccine 12+ 09/12/2024,1 01/25/2023,04/23/2021,04/01 Pfizer Covid-19 Vaccine 12+ Bivalent 09/09/2022 Pneumococcal Conjugate PCV 20 11/24/2023 Pneumococcal Polysaccharide PPSV23 05/07/2021 RSV Bivalent 10/10/2024 TD (adult), 2 Lf tetanus tox oid, preservative free, adsorbed 01/06/2005 Td (adult), unspecified 01/06/2005 Tdap 04/03/2015 Zoster, Recombinant 11/09/2019,11/05/2019,2018 Social History Tobacco Use Types Packs/Day Years Used Date Smoking Tobacco: Never Smokeless Tobacco: Never Tobacco Cessation:Counseling Given: Not Answered Alcohol Use Standard Drinks/Week Comments Never 0 [...] not to disclose 2021 10:40 AM EDT Last Filed Vital Signs Vital Sign [place] Time Taken Comments Blood Pressure 124/74 12/24/2024 11:49 AM EST Pulse 56 12/24/2024 11:49 AM EST Temperature 36.2 ??C (97.1 ??F) 12/24/2024 11:[address] Respiratory Rate 12 12/24/2024 11:49 AM EST Oxygen Saturation 99% 12/24/2024 11:49 AM EST Inhaled Oxygen Concentration - - Weight 92.5 kg (204 lb) 12/24/2024 11:49 AM EST Height 172.4 cm (5' 7.89 ) 12/24/2024 11:[address] Body Mass Index 31.12 12/24/2024 11:49 AM EST Plan of Treatment Health Maintenance Due Date Last Done Comments CT Colonography 1955 FIT 1955 Sigmoidoscopy 1955 Derm Melanoma Skin Check 04/07/1956 Hepatitis C Screening 1973 SDOH Screening 04/06/2024 04/06/2023 Diabetes: Urine Protein Screening 03/07/2025 03/07/2024, 04/06/2023, 09/09/2022 Lipid Panel 03/07/2025 03/07/2024, 03/28, 07/28/2022 Diabetes: Hemoglobin A1C 03/24/2025 025, 09/12/2024, 05/28/2024, Additional history exists DTaP/Tdap/Td Vaccines (2 - Td or Tdap) 04/03/2025 04/03/2015, 01/06/2005, 01/06/2005 FOBT 06/25/2025 06/25/2024 Alcohol/Substance Use Screening 09/12/2025 09/12/2024 Depression Screening 09/12/2025 09/12/2024, 09/12/20 Tobacco Screening 09/12/2025 09/12/2024 Diabetes: Foot Exam 12/24/2025 12/24/2024, 12/24/2024, 12/24/2024, Additional history exists Eye Exam 03/08/2026 03/08/2024, 02/26, 03/08/2024, Additional history exists FIT DNA/Cologuard 06/25/2027 06/25/2024, 06/25/2024 Colonoscopy 07/16/2027 07/16/2024, 09/23/2021 Colorectal Cancer Screening 07/16/2027 Zoster Vaccines Completed 11/09/2019, 1207/2019, 08/27/2019 Pneumococcal Vaccine: 50+ Years Completed 11/24/2023, 05/07/2021 COVID-19 Vaccine Completed 09/12/2024, , 09/09/2022, Additional history exists Influenza Vaccine Completed 09/12/2024, , 09/09/2022, Additional history exists RSV Patients and Patients Aged 60 years or older Completed 10/10/2024 HIB Vaccines Aged Out No longer eligi ble based on patient's age to complete this topic HPV Vaccines Aged Out No longer eligi ble based on patient's age to complete this topic Hepatitis A Vaccines Aged Out No long er eligible based on patient's age to complete this topic Hepatitis B Vaccines Aged Out No long er eligible based on patient's age to complete this topic IPV Vaccines Aged Out No longer eligi ble based on patient's age to complete this topic Meningococcal Vaccine Aged Out No sim[place] eligible based on patient's age to complete this topic RSV under 20 months Aged Out No longe r eligible based on patient's age to complete this topic Rotavirus Vaccines Aged Out No longer eligible based on patient's age to complete this topic Procedures Procedure Name Priority Date/Time Associated Diagnosis Comments POCT GLYCOSYLATED HEMOGLOBIN (HGB A1C) Routine 12/24/2024 12:11 PM EST Type 2 diabetes mellitus with hyperglycemia, without long-term current use of insulin (CMS/HCC) POCT GLUCOSE Routine 12/24/2024 12:09 PM EST Type 2 diabetes mellitus with hyperglycemia, without long-term current use of insulin (CMS/HCC) COLONOSCOPY Routine 07/16/2024 LAB COLOGUARD?? COLON CANCER SCREEN Routine 06/25/2024 12:30 PM EDT Colon cancer screening FIT DNA/COLOGUARD CANCER SCREENING Routine 06/25/2024 LIPID PANEL WITH REFLEX TO DIRECT LDL Routine 03/07/2024 9:32 AM EDT Type 2 diabetes mellitus without complication, without long-term current use of insulin ([facility]/HCC) ALBUMIN, RANDOM URINE W/CREATININE Routine 03/07/2024 9:28 AM EDT Type 2 diabetes mellitus without complication, without long-term current use of insulin (CMS/HCC) from Last 3 Months or Most Recently Relevant to Health Maintenance Results * (ABNORMAL) POCT glycosylated hemoglobin (Hgb A1c) (12/24/2024 12:11 PM EST) Hemoglobin A1C 7.0(A) 4.0 - 6.0 % QC Media Lot # [id number] Lot# Expiration Date Blood Capillary blood specimen / Unknown 12/24/2024 12:11 PM EST Argenis Mitchell MD POINT OF CARE TEST ENTER/EDIT OR DERABLES Final Result * POCT glucose manually resulted (12/24/2024 12:09 PM EST) Glucose Blood, POC 198 60 - 200 mg/dL QC Media Lot # [id number] Lot# Expiration Date ,025 Blood Capillary blood specimen / Unknown 12/24/2024 12:09 PM EST Argenis Mitchell MD POINT OF CARE TEST ENTER/EDIT OR DERABLES Final Result * Hm Colonoscopy (07/16/2024) Colonoscopy Normal Normal Historical Provider HEALTH MAINTENANCE Final Result * Cologuard?? colon cancer screening (06/25/2024 12:30 PM EDT) Cologuard Result Negative Negative 06/29/20 9:55 AM EDT [employer] (CLIA #:[id number]) Comment: NEGATIVE TEST RESULT. A negative Cologuard result indicates a low likelihood that a colorectal cancer (CRC) or advanced adenoma (adenomatous polyps with more advanced pre-malignant features) ??is present. The chance that a person with a negative Cologuard test has a colorectal cancer is less than 1 in 1500 (negative predictive value >99.9%) or has an ??advanced adenoma is less than ??5.3% (negative predictive value 94.7%). These data are based on a prospective cross-sectional study of 10,000 individuals at average risk for colorectal cancer who were screened with both Cologuard and colonoscopy. (Clover Rogers al, N Engl J Med 2014;370(14):1286- 1297) The normal value (reference range) for this assay is negative. COLOGUARD RE-SCREENING RECOMMENDATION: Periodic colorectal cancer screening is an important part of preventive healthcare for asymptomatic individuals at average risk for colorectal cancer. ??Following a negative Cologuard result, the [place] [employer] and [place] Multi-Society Task Force screening guidelines recommend a Cologuard re-screening interval of 3 years. References: [place] [employer] Guideline for Colorectal Cancer Screening: https://www.cancer.org/cancer/moqyg-lejdaj-mgpivp/pmtbxutps-chgxwcnak-dghvwaz/ac s-rec ommendations.html.; Mohsen RUTHERFORD, Angelica MCDONALD, Radha BIRD, Colorectal Cancer Screening: Recommendations for Physicians and Patients from the U.S. Multi-Society Task Force on Colorectal Cancer Screening , Am J Gastroenterology 2017; 112:5078-6936. TEST DESCRIPTION: Composite algorithmic analysis of stool DNA-biomarkers with hemoglobin immunoassay. ?? Quantitative values of individual biomarkers are not reportable and are not associated with individual biomarker result reference ranges. Cologuard is intended for colorectal cancer screening of adults of either sex, 45 years or older, who are at average-risk for colorectal cancer (CRC). Cologuard has been approved for use by the U.[place]. FDA. The performance of Cologuard was established in a cross sectional study of average-risk adults aged 50-84. Cologuard performance in patients ages 45 to 49 years was estimated by sub-group analysis of near-age groups. Colonoscopies performed for a positive result may find as the most clinically significant lesion: colorectal cancer [4.0%], advanced adenoma (including sessile serrated polyps greater than or equal to 1cm diameter) [20%] or non- advanced adenoma [31%]; or no colorectal neoplasia [45%]. These estimates are derived from a prospective cross-sectional screening study of 10,000 individuals at average risk for colorectal cancer who were screened with both Cologuard and colonoscopy. (Clover Blancas et al, N Engl J Med 2014;370(14):6994-8025.) Cologuard may produce a false negative or false positive result (no colorectal cancer or precancerous polyp present at colonoscopy follow up). A negative Cologuard test result does not guarantee the absence of CRC or advanced adenoma (pre-cancer). The current Cologuard screening interval is every 3 years. ([place] [employer] and U.S. Multi-Society Task Force). Cologuard performance data in a 10,000 patient pivotal study using colonoscopy as the reference method can be accessed at the following location: www.[employer]results. Additional description of the Cologuard test process, warnings and precautions can be found at www.[employer].com. Stool specimen (specimen) 06/25/2024 12:30 PM EDT 06/26/2024 10:59 AM EDT us Argenis Mitchell MD LAB MOLECULAR DIAGNOSTICS ORDERA BLES Final Result [employer] (CLIA #:[id number]) [place] [place] [address], [place] [phone] * FIT DNA/Cologuard Cancer Screening (06/25/2024) Cologuard Cancer Screen Negative Stool 06/25/2024 Alpesh Provider HEALTH MAINTENANCE Final Result * (ABNORMAL) Lipid Panel with Reflex to Direct LDL (03/07/2024 9:32 AM EDT) Triglycerides 172(H) <150 mg/dL [facility] Comment:Desirable Triglyceri de: less than 150 mg/dLBorderline High Triglyceride 150-199 mg/dLHigh Triglyceride: 200-499 mg/dLVery High Triglyceride: greater than or equal to 5OO mg/dL Cholesterol 107 <200 mg/dL [facility] Comment:Desirable Cholestero l: less than 200 mg/dLBorderline High Cholesterol: 200-239 mg/dLHigh Cholesterol: greater than 239 mg/dL LDL Cholesterol Calculated 49 <100 mg/dL [facility] Comment:Desirable LDL: less than 100 mg/dLNear Optimal/Above Optimal LDL: 110- 129 mg/dLBorderline High LDL: 130-159 mg/dLHigh LDL: 160-189 mg/dLVery High LDL: greater than or equal to 190 mg/dL HDL Cholesterol 24(L) >40 mg/dL [facility] Comment:Desirable HDL: great er than 40 mg/dL Note: This HDL assay may give artificially low results in patients with liver disease. Blood 03/07/2024 9:32 AM EDT 03/07/2024 11:40 AM EDT us Argenis Mitchell MD LAB BLOOD ORDERABLES Final Resul t [facility] [address] [place] [address] [phone] * (ABNORMAL) Albumin, Random Urine W/Creatinine (03/07/2024 9:28 AM EDT) Creatinine, Urine 233.77 mg/dL [facility] Microalbumin Urine 154.0 mg/L H [facility] Microalbum Creatinine Ratio Ur 65.8(H) <30 ug/mg cr [facility] Comment:Albumin/Creatinine R atio Reference Ranges: Normal: < 30 ug/mg creatinine Microalbuminuria: 30 - 300 ug/mg creatinineClinical Albuminuria: > 300 ug/mg creatinine Urine 03/07/2024 9:28 AM EDT 03/07/2024 11:27 AM EDT us Argenis Mitchell MD LAB URINE ORDERABLES Final Resul t [facility] [address] [place] [address] [phone] from Last 3 Months or Most Recently Relevant to Health Maintenance Insurance [employer] MEDICARE REPLACEMENT Care Teams Radiologist Relationship Specialty Start Date End Date Argenis Mitchell MD [address] [place] [id number] PCP - General Family Medicine 09/10/22 Bird Fields, PharmD [address] [place] [phone] Pharmacist Internal Medicine 08/27/24
--- OUTSIDE RECORDS SUMMARY | 2025-03-20 12:06 | XMS_ITS | Encounter Summary ---
Author Organization [employer] Address [address] [place] [address] [facility] [place] [address] Care Team Providers Care Digital Associate Media Director Name Role Phone Argenis Mitchell MD Primary Care Provider [phone] Bird Fields PharmD Unavailable [phone] Reason for Visit * Reason Comments Med Refill Encounter Details Date Type Department Care Team (Late st Contact Info) Description 12/26/2022 Refill [facility] [address] [place] [address] Argenis Mitchell MD [address] [place] [address] Essential hypertension (Primary Dx) Social History Tobacco Use Types Packs/Day Years Used Date Smoking Tobacco: Never Assessed Sex and Gender Information Value Date Recorded Sex Assigned at Male 09/27/2022 10:40 AM EDT Legal Sex Male 10:40 AM EDT Gender Identity Male 09/27/2022 10:40 AM EDT Sexual Orientation Choose not to disclose 2021 10:40 AM EDT COVID-19 Exposure Response Date Recorded In the last 10 days, have yo u been in contact with someone who was confirmed or suspected to have Coronavirus/COVID-19? No / Unsure 12/09/2022 10:13 AM EST documented as of this encounter Plan of Treatment Not on file documented as of this encounter Visit Diagnoses Diagnosis Essential hypertension- Primary Unspecified essential hypertension documented in this encounter Care Teams Digital Associate Media Director Relationship Specialty Start Date End Date Argenis Mitchell MD [address] [place] [address] PCP - General Family Medicine 09/10/22 Bird Fields, LakeshaD [address] [place] [address] Pharmacist Internal Medicine 08/27/24 documented as of this encounter
--- OUTSIDE RECORDS SUMMARY | 2025-03-20 12:07 | XMS_ITS | Data Portability ---
Author Organization [facility], , [facility] Address [address] [place] [address] Care Team Providers Care Organ Fixer Name Role Phone LAURYN CRUZ Primary Care Provider [phone] YAYA HARRISON Academy Director [phone] ALFRED RENEE Psychologist RICHARD ABRAHAM Phys. Med. & Rehab [phone] SAMUEL WITT Orthopedic Surgeon [phone] LOREN JULIAN General Surgeon [phone] Assessment No assessment recorded. Plan of Treatment Reminders Order Date Submit Date Provider Last Modified By Organization Details Last Modified Time Details Appointments None recorded. Lab TSH, serum or plasma 2020 021 [facility], [address] [place] [address], [address], 12:25:30 testostero ne, free + total, serum 2020 021 [facility], [address] [place] [address], [address], 13:55:33 CMP, serum or plasma 2020 021 [facility], [address] [place] [address], [address], 11:06:03 lipid panel, serum 2020 021 [facility], [address] [place] [address], [address], 09/03/202 1 11:06:06 CMP, serum or plasma 2019 [facility], [address] [place] [address], [address], 0 15:58:28 BNP (B-type natriureti c peptide), serum or plasma 2019 [facility], [address] [place] [address], [address], 0 13:36:26 CBC 2019 [facility], [address] [place] [address], [address], 0 15:40:59 Referral None recorded. Procedures colonoscop y procedure (PROC) [email or web address] [facility], [address] [place] [address], [address], 1 08:48:30 Surgeries None recorded. Imaging None recorded. Medication Orders sildenafil 100 mg tablet 2020 021 [facility] [address] [place], [address], 1 16:16:39 paroxetine 20 mg tablet 2019 020 [facility] [address], [address] [place], [address], 0 12:13:11 Patient Targets Encounter Date Encounter Id Patient Goals Patient Target Last Modified By Organization Details Last Modified Time 05/07/2021 [id number] Blood Pressure 130/80 Not available Not available Not available Cholesterol , LDL less than 130 Not available Not available Not available Patient Instructions Encounter Date Encounter Id Patient Instructions Last Modified By Organization Details Last Modified Time 06/10/2020 [id number] After a discussi on of treatment options, which included consideration of best practices and patient preferences, the following treatment plan and objectives were adopted: as above. [email or web address] Not available 06/10/2020 10:27:38 07/04/2020 [id number] After a discussi on of treatment options, which included consideration of best practices, patient preferences, and the patient? s individual lifestyle and treatment goals, as well as consideration and attempted mitigation of any barriers to meeting the patient? 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) Not Available [facility] [address] [place], [address], 06/12/2020 11:32:02 06/12/20 20 06/12/2020 SARS CoV 2 RNA (COVI D-19) , QL, expanded function dental assistant-P CR, respi rator y speci men covid testing status In-yolie se testin g being perfor med Not Available [facility]) [address] [place], [address], 06/12/2020 11:32:02 06/12/20 20 06/12/2020 SARS CoV 2 RNA (COVI D-19) , QL, expanded function dental assistant-P CR, respi rator y speci men specimen source/descr iption NASOPH ARYNGE AL SWAB Not Available [facility]) [address] [place], [address], 06/12/2020 14:50:30 06/12/20 20 06/12/2020 SARS CoV 2 RNA (COVI D-19) , QL, expanded function dental assistant-P CR, respi rator y speci men sars-cov [...] 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 Not Available [facility]) [address] [place], [address], 06/12/2020 14:50:30 07/04/20 20 07/04/2020 CBC WBC 8.40 K/? ? ?L 4.23-9 .07 Not Available [address], [address], 07/04/2020 15:40:59 07/04/20 20 07/04/2020 CBC RBC 4.60 M/? ? ?L 4.63-6 .08 low Not Available [address], , 07/04/2020 15:40:59 07/04/20 20 07/04/2020 CBC HGB 14.3 g/dL 13.7-1 7.5 Not Available [address], [address], 07/04/2020 15:40:59 07/04/2007/04/2020 CBC HCT 40.4 % 40.1-5 1.0 Not Available [address], [address], 07/04/2020 15:40:59 07/04/20 20 07/04/2020 CBC MCV 87.8 fL 79.0-9 2.2 Not Available [address], [address], 07/04/2020 15:40:59 07/04/2007/04/2020 CBC MCH 31.1 pg 25.7-3 2.2 Not Available [address], [address], 07/04/2020 15:40:59 07/04/20 20 07/04/2020 CBC MCHC 35.4 g/dL 32.3-3 6.5 Not Available [address], [address], 07/04/2020 15:40:59 07/04/20 20 07/04/2020 CBC plt 195 K/? ? ?L 163-33 7 Not Available [address], [address], 07/04/2020 15:40:59 07/04/20 20 07/04/2020 CBC MPV 10.8 fL 9.4-12 .4 Not Available [address], [address], 07/04/2020 15:40:59 07/04/20 20 07/04/2020 CBC neut% 61.1 % 34.0-6 7.9 Not Available [address], [address], 07/04/2020 15:40:59 07/04/20 20 07/04/2020 CBC neut# 5.13 1.78-5 .38 Not Available [address], [address], 07/04/2020 15:40:59 07/04/2007/04/2020 CBC lymph % 27.5 % 21.8-5 3.1 Not Available [address], [address], 07/04/2020 15:40:59 07/04/20 20 07/04/2020 CBC lymph # 2.31 K/? ? ?L 1.32-3 .57 Not Available [address], [address], 07/04/2020 15:40:59 07/04/20 20 07/04/2020 CBC mono% 9.3 % 5.3-12 .2 Not Available [address], [address], 07/04/2020 15:40:59 07/04/2007/04/2020 CBC mono# 0.78 0.30-0 .82 Not Available [address], [address], 07/04/2020 15:40:59 07/04/2007/04/2020 CBC eo% 1.5 % 0.8-7. 0 Not Available [address], [address], 07/04/2020 15:40:59 07/04/20 20 07/04/2020 CBC eo# 0.13 0.04-0 .54 Not Available [address], [address], 07/04/2020 15:40:59 07/04/20 20 07/04/2020 CBC baso% 0.2 % 0.2-1. 2 Not Available [address], [address], 07/04/2020 15:40:59 07/04/20 20 07/04/2020 CBC baso# 0.02 0.00-0 .08 Not Available [address], [address], 07/04/2020 15:40:59 07/04/20 20 07/04/2020 CBC RDW-CV 12.2 % 11.6-1 4.4 Not Available [address], [address], 07/04/2020 15:40:59 07/04/20 20 07/04/2020 CBC Ig% 0.400 % 0.000- 1.500 Ig % >0.5 Indic ates possi ble Left Shift Not Available [address], [address], 07/04/2020 15:40:59 07/04/20 20 07/04/2020 CBC Ig# 0.030 0.000- 0.093 Not Available [address], [address], 07/04/2020 15:40:59 07/04/20 20 07/04/2020 CBC NRBC% 0.0 % 0.0-0. 2 Not Available [address], [address], 07/04/2020 15:40:59 07/04/20 20 07/04/2020 CBC NRBC# 0.000 0.000- 0.012 Not Available [address], [address], 07/04/2020 15:40:59 07/04/20 20 07/04/2020 CMP, serum or plasm a glucose 139 mg/dL 70-100 high Not Available [address], [address], 07/04/2020 15:58:28 07/04/20 20 07/04/2020 CMP, serum or plasm a BUN 27 mg/dL 7-18 high Not Available [address], [address], 07/04/2020 15:58:28 07/04/20 20 07/04/2020 CMP, serum or plasm a creatinine 1.2 mg/dL 0.8-1. 3 Not Available [address], [address], 07/04/2020 15:58:28 07/04/20 20 07/04/2020 CMP, serum or plasm a B/C 22.5 ratio Not Available [address], [address], 07/04/2020 15:58:28 07/04/20 20 07/04/2020 CMP, serum or plasm a GFR -non 64.8 mL/mi n Recom raghu d GFR by the Natio nal Kidne y Found ation >60 mL/mi n/1.7 3m2 - Niyah l <60 mL/mi n/1.7 3m2 - Chron ic Kidne y Disea se <15 mL/mi n/1.7 3m2 - Kidne y Failu re Not Available [address], [address], 07/04/2020 15:58:28 07/04/20 20 07/04/2020 CMP, serum or plasm a GFR - if 78.4 mL/mi n For Afric an Ameri can patie nts: Resul ts Multi plied by 1.21 Not Available [address], [address], 07/04/2020 15:58:28 07/04/20 20 07/04/2020 CMP, serum or plasm a sodium 142 mmol/ L 136-14 5 Not Available [address], [address], 07/04/2020 15:58:28 07/04/20 20 07/04/2020 CMP, serum or plasm a potassium 3.5 mmol/ L 3.5-5. 1 Not Available [address], [address], 07/04/2020 15:58:28 07/04/20 20 07/04/2020 CMP, serum or plasm a chloride 102 mmol/ L 96-107 Not Available [address], [address], 07/04/2020 15:58:28 07/04/2007/04/2020 CMP, serum or plasm a anion gap 8.1 5.0-15 .0 Not Available [address], [address], 07/04/2020 15:58:28 07/04/2007/04/2020 CMP, serum or plasm a CO2 32 mmol/ L 21-32 Not Available [address], [address], 07/04/2020 15:58:28 07/04/2007/04/2020 CMP, serum or plasm a calcium 9.7 mg/dL 8.5-10 .3 Not Available [address], [address], 07/04/2020 15:58:28 07/04/2007/04/2020 CMP, serum or plasm a total protein 7.1 g/dL 6.4-8. 2 Not Available [address], [address], 07/04/2020 15:58:28 07/04/2007/04/2020 CMP, serum or plasm a albumin 4.0 g/dL 3.4-5. 0 Not Available [address], [address], 07/04/2020 15:58:28 07/04/20 20 07/04/2020 CMP, serum or plasm a globulin 3.1 g/dL Not Available [address], [address], 07/04/2020 15:58:28 07/04/20 20 07/04/2020 CMP, serum or plasm a A/G 1.3 ratio 0.8-2. 0 Not Available [address], [address], 07/04/2020 15:58:28 07/04/20 20 07/04/2020 CMP, serum or plasm a total bilirubin 1.00 mg/dL 0.00-1 .00 Not Available [address], [address], 07/04/2020 15:58:28 07/04/20 20 07/04/2020 CMP, serum or plasm a AST 39 U/L 0-37 high Not Available [address], [address], 07/04/2020 15:58:28 07/04/20 20 07/04/2020 CMP, serum or plasm a ALT 93 U/L 6-63 high Not Available [address], [address], 07/04/2020 15:58:28 07/04/20 20 07/04/2020 CMP, serum or plasm a alk. phos. 42 U/L 50-136 low Not Available [address], [address], 07/04/2020 15:58:28 07/04/20 20 07/07/2020 pro BNP [...] 40:97 6-982 . Not Available [facility] [address] [place], [address], 07/07/2020 13:36:26 07/04/2007/07/2020 pro BNP (pro B-typ e natri ureti [...] pg/mL women ) are based on Mónica Blancas et al., J Am Amanda Cardi ol. [...] //nilo griffith stdia gnost ics.c om/fa q/FAQ 202 (This link is being provi ded for infor sb robert/ reagan hernandez purpo ses only. ) Not Available [facility] [address] [place], [address], 07/07/2020 14:02:39 06/20/20 21 06/20/2021 COVID -19 PCR ORDER covid testing status Speci men recei mady in [facility]. Resul ts shoul d be avail able withi n 24 to 48 hrs. Not Available [facility] ([facility]) [address] [place], [address], 06/20/2021 18:55:02 06/20/20 21 06/20/2021 COVID -19 PCR ORDER symptomatic? YES Not Available [facility] (Outpatient) [address] [place], [address], 06/20/2021 18:55:02 06/20/20 21 06/21/2021 COVID -19 RT-PC R specimen source AN SWAB Not Available [facility] ([facility]) [address] [place], [address], 06/21/2021 11:53:34 06/20/20 21 06/21/2021 COVID -19 RT-PC R sars-cov 2 (covid-19) PCR NEGATI VE negati ve (NOTE ) 2019- novel Coron aviru s (2018nCoV ) not detec seb by the qRT-P [...] throu ghput versi on of the CDC 2018- nCoV Realt jeannette RT-PC R test and has been valid ated in accor dance with the ale nce issue d by the Colle ge of Mikki phillips Patho logis ts (Feb [...] from respi rator y speci mens using Digital Envoy X-96 Viral RNA [place] tion Kits (Ther mo Fishe r Scien tific ); RNA is rever se trans cribe d to cDNA, and subse quent ly ampli fied in a Real- Time PCR Instr ument (Appl ied Biosy stems ViiA7 ). This syste m provi devon quali tativ e detec tion of nucle ic acid from SARS- CoV-2 . For more detai led infor matio n on the test metho ds and [...] false negat lyric resul t. Not Available [facility] (Out[facility]) [address] [facility], [place], [address], 06/21/2021 11:53:34 07/30/20 21 07/31/2021 COMP. METAB OLIC PANEL glucose 148 mg/dL 70-100 high Not Available [address], [address], 07/31/2021 11:06:00 07/30/20 21 07/31/2021 COMP. METAB OLIC PANEL BUN 21 mg/dL 7-18 high Not Available [address], [address], 07/31/2021 11:06:00 07/30/20 21 07/31/2021 COMP. METAB OLIC PANEL creatinine 1.4 mg/dL 0.8-1. 3 high Not Available [address], [address], 07/31/2021 11:06:00 07/30/20 21 07/31/2021 COMP. METAB OLIC PANEL B/C 15.0 ratio Not Available [address], [address], 07/31/2021 11:06:00 07/30/20 21 07/31/2021 COMP. METAB OLIC PANEL GFR -non 54.1 mL/mi n Recom raghu d GFR by the Natio nal Kidne y Found ation >60 mL/mi n/1.7 3m2 - Niyah l <60 mL/mi n/1.7 3m2 - Chron ic Kidne y Disea se <15 mL/mi n/1.7 3m2 - Kidne y Failu re Not Available [address], [address], 07/31/2021 11:06:00 07/30/20 21 07/31/2021 COMP. METAB OLIC PANEL GFR - if 65.4 mL/mi n For Afric an Ameri can patie nts: Resul ts Multi plied by 1.21 Not Available [address], [address], 07/31/2021 11:06:00 07/30/20 21 07/31/2021 COMP. METAB OLIC PANEL sodium 141 mmol/ L 136-14 5 Not Available [address], [address], 07/31/2021 11:06:00 07/30/20 21 07/31/2021 COMP. METAB OLIC PANEL potassium 3.2 mmol/ L 3.5-5. 1 low Not Available [address], [address], 07/31/2021 11:06:00 07/30/20 21 07/31/2021 COMP. METAB OLIC PANEL chloride 101 mmol/ L 96-107 Not Available [address], [address], 07/31/2021 11:06:00 07/30/2007/31/2021 COMP. METAB OLIC PANEL anion gap 9.1 5.0-15 .0 Not Available [address], [address], 07/31/2021 11:06:00 07/30/20 21 07/31/2021 COMP. METAB OLIC PANEL CO2 31 mmol/ L 21-32 Not Available [address], [address], 07/31/2021 11:06:00 07/30/20 21 07/31/2021 COMP. METAB OLIC PANEL calcium 9.6 mg/dL 8.5-10 .3 Not Available [address], [address], 07/31/2021 11:06:00 07/30/20 21 07/31/2021 COMP. METAB OLIC PANEL total protein 7.3 g/dL 6.4-8. 2 Not Available [address], [address], 07/31/2021 11:06:00 07/30/20 21 07/31/2021 COMP. METAB OLIC PANEL albumin 4.1 g/dL 3.4-5. 0 Not Available [address], [address], 07/31/2021 11:06:00 07/30/20 21 07/31/2021 COMP. METAB OLIC PANEL globulin 3.2 g/dL Not Available [address], [address], 07/31/2021 11:06:00 07/30/20 21 07/31/2021 COMP. METAB OLIC PANEL A/G 1.3 ratio 0.8-2. 0 Not Available [address], [address], 07/31/2021 11:06:00 07/30/20 21 07/31/2021 COMP. METAB OLIC PANEL total bilirubin 0.90 mg/dL 0.00-1 .00 Not Available [address], [address], 07/31/2021 11:06:00 07/30/20 21 07/31/2021 COMP. METAB OLIC PANEL AST 28 U/L 0-37 Not Available [address], [address], 07/31/2021 11:06:00 07/30/20 21 07/31/2021 COMP. METAB OLIC PANEL ALT 59 U/L 6-63 Not Available [address], [address], 07/31/2021 11:06:00 07/30/20 21 07/31/2021 COMP. METAB OLIC PANEL alk. phos. 51 U/L 50-136 Not Available [address], [address], 07/31/2021 11:06:00 07/30/20 21 07/31/2021 LIPID PANEL cholesterol 179 mg/dL <200 mg/dl Moi able 200-2 39 mg/dl Borde rline High >240 mg/dl High Not Available [address], [address], 07/31/2021 11:06:06 07/30/20 21 07/31/2021 LIPID PANEL triglyceride s 296 mg/dL high LIPM= Speci men Moder ately Lipem ic. Chem Resul ts may be effec seb. <150 mg/dL Niyah l 150-1 99 mg/dL Borde rline High 200-4 99 mg/dL High >500 mg/dL Very High Not Available [address], [address], 07/31/2021 11:06:06 07/30/20 21 07/31/2021 LIPID PANEL direct HDL 24 mg/dL <40 mg/dl - Major Risk for CHD >60 mg/dl - Negat lyric Risk for CHD Not Available [address], [address], 07/31/2021 11:06:06 07/30/20 21 07/31/2021 DIREC T LDL direct LDL 117 mg/dL RISK CATEG ORY LDL GOAL _ CHD or CHD Risk Equiv alent s <100 mg/dl (10-y ear risk >20%) 2+ Risk Facto rs <130 mg/dl (10-y ear risk <= 20%) 0-1 Risk Facto r? <160 mg/dl ? Almos t all peopl e with 0-1 risk facto r have a 10 year risk <10%, thus 10 year risk asses ment in peopl e with 0-1 risk facto r is not neces fili. Not Available [address], [address], 07/31/2021 11:06:07 07/30/20 21 07/31/2021 TSH TSH 1.92 uIU/m L 0.50-6 .00 The Ameri can Colle ge of Endoc rinol ogy and Ameri can Thyro id Assoc iatio n recom mend goal TSH value s betwe en 0.4-4 .0 mIU/m L. Not Available [facility] [address] [facility], [place], [address], 07/31/2021 12:25:30 07/30/20 21 08/04/2021 TESTO STERO NE, FREE (DIAL YSIS) AND [...] kelli reynolds e refer to http: //nilo coles.que stdia gnost ics.c om/fa q/ Total Testo stero neLCM SMSFA Q165 (This link is being provi ded for infor sb robert/ educa roby l purpo ses only. ) This test was devel oped and its nash tical perfo rmanc e priscila cteri stics have been deter mined by [facility], [place]. It has not been clear ed or appro mady by the U.S. Food and Drug Admin istra tion. This assay has been valid ated pursu ant to the CLIA regul ation s and is used for clini adrien purpo ses. Not Available [facility] [address], [place], [address], 08/04/2021 13:55:31 07/30/20 21 08/04/2021 TESTO STERO NE, FREE (DIAL YSIS) AND TOTAL ,MS testosterone , free 62.8 pg/mL 35.0-1 55.0 This test was devel oped and its nash tical perfo rmanc e priscila cteri stics have been deter mined by [facility], [place]. It has not been clear ed or appro mady by the U.S. Food and Drug Admin istra tion. This assay has been valid ated pursu ant to the CLIA regul ation s and is used for clini adrien purpo ses. Not Available [facility] [address] [place], [place], [address], 08/04/2021 13:55:31 09/23/20 21 09/24/2021 ANATO SHANTI PATHO LOGY path report [facility] [address] [facility] [place] [facility] [place] [address] Lab Direc tor: Jennifer tamez MD Surgi adrien Patho [...] s polyp on a stalk . Lucrecia ctron icall y Claudia d Out By Faizan el MD By his/h er francy king above , the patho logis t liste d as consuelo rivers the Final Diagn [...] AN 09/23 Gross ing Staff : FEI Pressley nt Name: ASUNCION CASTILLO GIDEON : [birth year] (Age: 65) Sex: M 1 Insti tutio n: [facility] Locat ion: [facility] Date of Opera tion: 09/23 Date of Acces chelsi: 09/23 Repor seb: 09/24 12:46 Resul ts To: Sameer valverde MD, BS Not Available [facility] [address] [place] [address], [address], 09/24/2021 12:51:34 07/29/20 22 07/29/2022 CBC AND DIFFE RENTI AL WBC 6.88 K/uL 4.00-1 1.00 Not Available [facility]) [address] [place] [address], [address], 07/29/2022 13:36:10 07/29/20 22 07/29/2022 CBC AND DIFFE RENTI AL RBC 4.78 M/uL 3.90-5 .69 Not Available [facility] ([facility]) [address] [place] [address], [address], 07/29/2022 13:36:10 07/29/20 22 07/29/2022 CBC AND DIFFE RENTI AL HGB 15.0 g/dL 12.4-1 7.3 Not Available [facility] ([facility]) [address] [place], [address], 07/29/2022 13:36:10 07/29/20 22 07/29/2022 CBC AND DIFFE RENTI AL HCT 41.6 % 37.0-5 1.0 Not Available [facility] ([facility]) [address] [place], [address], 07/29/2022 13:36:10 07/29/20 22 07/29/2022 CBC AND DIFFE RENTI AL plt 200 K/uL 140-43 0 Not Available [facility] ([facility]) [address] [place] [address], [address], 07/29/2022 13:36:10 07/29/20 22 07/29/2022 CBC AND DIFFE RENTI AL MCV 87.0 fL 78.0-9 7.0 Not Available [facility] ([facility]) [address] [place], [address], 07/29/2022 13:36:10 07/29/20 22 07/29/2022 CBC AND DIFFE RENTI AL MCH 31.4 pg 25.0-3 3.0 Not Available [facility] ([facility]) [address] [place], [address], 07/29/2022 13:36:10 07/29/20 22 07/29/2022 CBC AND DIFFE RENTI AL MCHC 36.1 g/dL 32.0-3 6.0 high Not Available [facility] ([facility]) [address] [place], [address], 07/29/2022 13:36:10 07/29/20 22 07/29/2022 CBC AND DIFFE RENTI AL RDW 12.7 % 11.0-1 5.0 Not Available [facility] ([facility]) [address] [place], [address], 07/29/2022 13:36:10 07/29/20 22 07/29/2022 CBC AND DIFFE RENTI AL MPV 10.3 fL 8.4-12 .8 Not Available [facility] ([facility]) [address] [place], [address], 07/29/2022 13:36:10 07/29/20 22 07/29/2022 CBC AND DIFFE RENTI AL diff method Auto Not Available [facility] ([facility]) [address] [place], [address], 07/29/2022 13:36:10 07/29/20 22 07/29/2022 CBC AND DIFFE RENTI AL neuts 58.9 % 43.0-7 5.0 Not Available [facility] ([facility]) [address] [place], [address], 07/29/2022 13:36:10 07/29/20 22 07/29/2022 CBC AND DIFFE RENTI AL lymphs 31.3 % 18.2-4 7.4 Not Available [facility] ([facility]) [address] [place], [address], 07/29/2022 13:36:10 07/29/20 22 07/29/2022 CBC AND DIFFE RENTI AL monos 7.4 % 4.00-1 1.00 Not Available [facility] ([facility]) [address] [place], [address], 07/29/2022 13:36:10 07/29/20 22 07/29/2022 CBC AND DIFFE RENTI AL eos 1.7 % 0.0-8. 0 Not Available [facility] ([facility]) [address] [place], [address], 07/29/2022 13:36:10 07/29/20 22 07/29/2022 CBC AND DIFFE RENTI AL basos 0.4 % 0.0-2. 0 Not Available [facility] ([facility]) [address] [place], [address], 07/29/2022 13:36:10 07/29/20 22 07/29/2022 CBC AND DIFFE RENTI AL granulocytes , immature (%) 0.3 % 0.0-0. 9 Not Available [facility] ([facility]) [address] [place], [address], 07/29/2022 13:36:10 07/29/20 22 07/29/2022 CBC AND DIFFE RENTI AL absolute neuts 4.05 K/uL 1.80-7 .70 Not Available [facility] ([facility]) [address] [place] [address], [address], 07/29/2022 13:36:10 07/29/20 22 07/29/2022 CBC AND DIFFE RENTI AL absolute lymphs 2.15 K/uL 1.00-3 .10 Not Available [facility] ([facility]) [address] [place], [address], 07/29/2022 13:36:10 07/29/20 22 07/29/2022 CBC AND DIFFE RENTI AL absolute monos 0.51 K/uL 0.20-0 .80 Not Available [facility] ([facility]) [address] [place], [address], 07/29/2022 13:36:10 07/29/20 22 07/29/2022 CBC AND DIFFE RENTI AL absolute eos 0.12 K/uL 0.00-0 .80 Not Available [facility] ([facility]) [address] [place], [address], 07/29/2022 13:36:10 07/29/20 22 07/29/2022 CBC AND DIFFE RENTI AL absolute basos 0.03 K/uL 0.00-0 .09 Not Available [facility] ([facility]patient) [address] [place], [address], 07/29/2022 13:36:10 07/29/20 22 07/29/2022 CBC AND DIFFE RENTI AL granulocytes , immature 0.02 K/uL 0.00-0 .05 Not Available [facility] ([facility]) [address] [place], [address], 07/29/2022 13:36:10 07/29/20 22 07/29/2022 TROPO ALLYN troponin-T, hs gen5 8 NG/L 0-14 Not Available [facility] ([facility]) [address] [place], [address], 07/29/2022 13:39:08 07/29/20 22 07/29/2022 BASIC METAB OLIC PANEL sodium 138 mmol/ L 133-14 6 Not Available [facility] (Outpatient) [address] [place], [id number], 07/29/2022 13:44:29 07/29/20 22 07/29/2022 BASIC METAB OLIC PANEL chloride 98 mmol/ L 96-108 Not Available [facility] (Outpatient) [address] [place], [id number], 07/29/2022 13:44:29 07/29/20 22 07/29/2022 BASIC METAB OLIC PANEL potassium 4.2 mmol/ L 3.3-5. 1 Not Available [facility] (Outpatient) [address] [place], [id number], 07/29/2022 13:44:29 07/29/20 22 07/29/2022 BASIC METAB OLIC PANEL CO2 31 mmol/ L 21-35 Not Available [facility] (Outpatient) [address] [place], [id number], 07/29/2022 13:44:29 07/29/20 22 07/29/2022 BASIC METAB OLIC PANEL BUN 18 mg/dL 6-19 Not Available [facility] (Outpatient) [address] [place], [id number], 07/29/2022 13:44:29 07/29/20 22 07/29/2022 BASIC METAB OLIC PANEL creatinine 1.10 mg/dL 0.5-1. 5 Not Available [facility] [facility] [address] [place], [address], 07/29/2022 13:44:29 07/29/20 22 07/29/2022 BASIC METAB OLIC PANEL glucose 258 mg/dL 70-99 high Not Available [facility] (Outpatient) [address] [place], [address], 07/29/2022 13:44:29 07/29/20 22 07/29/2022 BASIC METAB OLIC PANEL calcium 10.4 mg/dL 8.4-10 .3 high Not Available [facility] (Outpatient) [address] [place], [address], 07/29/2022 13:44:29 07/29/20 22 07/29/2022 BASIC METAB OLIC PANEL eGFR 74 mL/mi n/1.7 3m2 >59 Estim ated glome rular filtr ation rate calcu lated using the CKD-E PI refit equat ion. Not Available [facility] (Out[facility]) [address] [place], [address], 07/29/2022 13:44:29 07/29/20 22 07/29/2022 BASIC METAB OLIC PANEL anion gap 13 mmol/ L 10-20 Not Available [facility] (Outpatient) [address] [place], [address], 07/29/2022 13:44:29 07/29/20 22 07/29/2022 D-DIM ER D-dimer 681 NG/mL _feu <500 high In patie nts with low to moder ate pre-t est proba bilit y score s for VTE (PE or DVT), a D-Dim er cut-o ff less than 500 ng/mL (FEU) has a negat lyric predi ctive value (NPV) of 97 to 100%. Not Available [facility] (Outpatient) [address] [place], [address], 07/29/2022 13:53:54 07/29/20 22 07/29/2022 NT-OH OBNP nt-probnp 61 pg/mL 0-125 Not Available [facility] (Outpatient) [address] [place], [address], 07/29/2022 14:17:11 07/29/20 22 07/29/2022 TROPO ALLYN troponin-T, hs gen5 7 NG/L 0-14 Not Available [facility] (Outpatient) [address] [place], [address], 07/29/2022 15:05:38 06/10/20 20 06/10/2020 XR, chest [...] Readin g Physic eliza: Dionicio James ms [facility] (Imaging) [address], [place], [address], 06/27/2020 09:02:11 06/18/20 20 06/10/2020 elect rocar diogr am No observ ation record ed. BARCODE [...] P.s. persis tent produc tive cough. MANNY [facility] [address] [place], [address], 06/25/2021 13:35:59 07/29/20 22 07/29/2022 xr chest [...] concer danis for blood clots LAURYN CRUZ [email or web address] [facility] [address] [facility], [place], [address], 07/29/2022 14:07:31 07/29/20 22 07/29/2022 CT chest [...] No pulmon bisi emboli sm. ATTEST ATION: IRonald as teachi ng physic eliza, have review ed the images for this case and if necess bisi edited the report origin vijay bnenett d by Belen molina. Electr onical ly Signed by: Ronald Gaytan on 07/29/20 22 4:35 PM Interp reted by: HeMD Belen Pope MD Signed by: Ronald Gaytan MD 07/29/22 Final result LAURYN CRUZ [facility] [address] [place], [address], 07/30/2022 13:49:16 04/17/20 23 09/23/2021 colon oscop y proce dure (PROC ) No observ ation record ed. Not Available 2022 11:40:01 Result Notes None recorded. Problems Name Problem SNOMED Code Status Onset Date Resolution Date Notes Provider Name and Address Organization Details Recorded Time Upper respirat ory infectio n 27637208 Completed 02/27/2014 Yosi Shaw MD [address] [place] [address], [address] , [facility] 4 08:36:01 Depressi ve disorder 20642264 Completed 201703/17/2021 F32.9 = no RADHA Score. Please code severity or remissio n level for RADHA. Removal Reason: F32.0 coded 07/04/20 Virtual Visit. ISA Mancilla, 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 ISA Mancilla, [facility] 1 11:20:07 Headache 84788278 Completed 200402/27/2014 Yosi Shaw MD [address] [place] [address], [address] , [facility] 4 08:36:01 Paving stone retinal degenera tion 45245371 Completed 200502/27/2014 Yosi Shaw MD [address] [place] [address], [address] , [facility] 4 08:36:01 Essentia l hyperten chelsi 35742931 Active Lauryn Cruz MD [address] [place] [address], [address] , [facility] 6 22:31:56 Common cold 44342176 Completed 200410/17/2013 Not Available [facility] 3 02:00:30 Hernia of abdomina l cavity 64317293 Active Not Available [facility] 3 03:05:19 Malignan t neoplasm of head, neck and face Completed 200504/03/2015 Lauryn Cruz MD [address] [place] [address], [address] , [facility] 5 10:57:49 Lateral epicondy litis 375071255 Completed 200710/17/2013 Not Available [facility] 3 02:02:34 Urinary tract infectio us disease 86829881 Completed 10/17/2013 Not Available [facility] 3 02:01:59 Open wound of forearm 053126519 Completed 200410/17/2013 Not Available [facility] 3 02:04:16 Acute maxillar y sinusiti s 16391261 Completed 200410/17/2013 Not Available [facility] 3 02:01:43 Benign essentia l hyperten chelsi 5671977 Completed 02/27/2014 Yosi Shaw MD [address] [place] [address], [address] , [facility] 4 08:36:01 Low back pain 998180536 Completed 200304/03/2015 Lauryn Cruz MD [address] [place] [address], [address] , [facility] 5 10:57:49 Blephari tis 27346652 Completed 200502/27/2014 Yosi Shaw MD [address] [place] [address], [address] , [facility] 4 08:36:01 Hip pain 63995311 Completed 200510/17/2013 Not Available [facility] 3 02:01:33 Neck pain 37975497 Completed 200510/17/2013 Not Available [facility] 3 02:00:37 Acute bronchit is 90426063 Completed 200410/17/2013 Not Available [facility] 3 02:01:37 Disorder of upper respirat ory system 056486404 Completed 200410/17/2013 Not Available [facility] 3 02:03:48 Problem Notes None recorded. Procedures Surgical History Date Name Laterality Status Provider Name and Address Organization Details Recorded Time 05/07/20 Medicare Wellness Visit completed Janet Boo [facility] 05/07/2021 08:30:21 05/07/20 prevention-cardi ovascular risk reduction counseling completed Janet Boo [facility] 05/07/2021 08:30:21 05/07/20 prevention-rogers hernandez alcohol misuse screening completed Janet Boo [facility] 05/07/2021 08:30:21 10/08/20 19 60619: Therapeutic Exercise completed Maria Eugenia Orr, PT [address] [place], [address], [facility] 2019 11:24:08 10/08/20 19 11846: Manual Therapy completed Maria Eugenia Orr, PT [address] [place], [address], [facility] 2019 11:24:15 10/08/20 19 Treatment and Advice completed Maria Eugenia Orr, PT [address] [place], [address], [facility] 2019 10:35:11 10/01/20 19 77140: Therapeutic Exercise completed Maria Eugenia Orr, PT [address] [place], [address], [facility] 10/01/2019 10:27:49 10/01/20 19 91946: Manual Therapy completed Maria Eugenia Orr, PT [address] [place], [address], [facility] 10/01/2019 10:27:53 10/01/20 19 Treatment and Advice completed Maria Eugenia Orr, PT [address] [place], [address], [facility] 10/01/2019 10:21:45 09/24/20 19 Physical Activity Counselling completed Maria Eugenia Orr, PT [address] [place], [address], [facility] 09/24/2019 10:31:57 09/24/20 19 [address]2966: PT Eval Low Complexity completed Maria Eugenia Orr, PT [address] [place], [address], [facility] 09/24/2019 10:31:54 09/24/20 19 Treatment and Advice completed Maria Eugenia Orr, PT [address] [place], [address], [facility] 09/24/2019 09:31:33 11/07/20 18 Gonioscopy completed Ayse Harrison, OD [address] [place], [address], [facility] 11/07/2018 15:12:21 11/07/20 18 Refraction completed Radha Ulrich [facility] 11/07/2018 11:25:01 08/19/20 17 Punch Biopsy completed Lauryn Cruz MD [address] [place], [address], [facility] 08/23/2017 20:53:36 06/25/20 14 Cerumen Removal completed Rosalia Shetty LPN [facility] 06/25/2014 15:13:22 Appendectomy completed Not Available [facility] 10/14/2011 06:06:16 Imaging Results Imaging Date Name Status LastModified by Organization Details LastModified Time 06/10/2020 XR, chest [facility] [address], [place], [address], 06/27/2020 09:02:11 06/10/2020 electrocardiogram completed BARCODE Informa tion not available 06/18/2020 16:40:40 06/20/2021 xr chest Pa and lateral 2 views completed [facility] [address] [place] [address], [address], 06/25/2021 13:35:59 07/29/2022 xr chest Pa and lateral 2 views completed [address] [facility] [address] [place], [address], 07/29/2022 14:07:31 07/29/2022 CT chest pulmonary angiogram (acute) completed argelia [facility] [address] [place], [address], 07/30/2022 13:49:16 09/23/2021 colonoscopy procedure (PROC) completed [email or web address] Information not available 04/17/2023 11:40:01 Procedure Notes None recorded. Medical Equipment None Reported. Allergies No known drug allergies Medications Name Sig Start Date Stop Date Status Note LastModified by Organization Details LastModified Time cheratuss in ac 100-10 mg/5ml syrp 02/22 completed Not Available Not Available Not Available shingrix 50 mcg/0.5ml susr 07/04 completed Not [...] e 50 mcg/actua tion nasal spray,jerry pension Griffin 1 spray twice a day by intranas al route for 30 days. 11/13 completed Not Available Not Available Not Available sertralin e 50 mg tablet Take 1 tablet every day by oral route. 11/13 completed Not taking .12.18 AAS Not Available Not Available Not Available [...] Not Available Vitals Date Recorded Body height Body mass index (BMI) Body weight Heart rate Systolic blood pressure Diastolic blood pressure Provider Name and Address Organization Details Last Updated DateTime 0 175.26 cm 28.1 kg/m2 79945.5 5 g 72 /min 175 mm[Hg] 107 mm[Hg] JERRY Begum [facility] 0 10:10:04 Date Recorded Body height Body mass index (BMI) Body weight Heart rate Oxygen saturation Oxygen saturation in Arterial blood by Pulse oximetry Body temperature Systolic blood pressure Diastolic blood pressure Provider Name and Address Organization Details Last Updated DateTime 0 175.26 cm 28.1 kg/m2 13575.5 5 g 70 /min 97 % 97 % 97.8 [degF] 175 mm[Hg] 99 mm[Hg] Sadia Perez [facility] 0 11:59:05 Date Recorded Body height Body mass index (BMI) Body weight Body temperature Heart rate Systolic blood pressure Diastolic blood pressure Provider Name and Address Organization Details Last Updated DateTime 0 175.26 cm 30.9 kg/m2 53863.5 1 g 98.1 [degF] 100 /min 120 mm[Hg] 66 mm[Hg] Sadia Perez [facility] 0 16:43:45 Date Recorded Body height Body mass index (BMI) Body weight Heart rate Systolic blood pressure Diastolic blood pressure Provider Name and Address Organization Details Last Updated DateTime 0 175.26 cm 28.1 kg/m2 42998.5 5 g 66 /min 117 mm[Hg] 67 mm[Hg] Kaycee Makayla [facility] 0 10:05:53 Date Recorded Body height Systolic blood pressure Diastolic blood pressure Provider Name and Address Organization Details Last Updated DateTime 07/17/2020 175.26 cm 136 mm[Hg] 76 mm[Hg] Lauryn Cruz MD [address] [place] [address], [address], [facility] 07/17/2020 12:07:33 Date Recorded Body height Body mass index (BMI) Body weight Heart rate Systolic blood pressure Diastolic blood pressure Provider Name and Address Organization Details Last Updated DateTime 1 173.99 cm 31.7 kg/m2 82084.7 9 g 72 /min 114 mm[Hg] 62 mm[Hg] Janet Boo [facility] 1 15:57:56 Social History Question Answer Notes LastModified by Organizat ion Details LastModified Time Tobacco Smoking Status Never Smoker Not Available [facility] 10/14/2011 04:54:19 Do You Have An Advance [...] available 04/03/2015 What Is Your Occupation? Retired [employer] Information not available 05/07/2021 How Many Days In The Past Year Have You Had A Heavy Drinking Consumption (4+ Female, 5+ Male)? 0 Information not available 04/03/2015 Are There Any Guns Present In Your Home? No Information not available 10/14/2011 Live Alone Or With Others? With Others Information not available 10/14/2011 CSRP - Narcotics No Information not available 02/27/2014 CSRP Contract Signed And Discussed No Information not available 02/27/2014 Patient Has Health Care Proxy Signed And In Chart No [email or web address] Information not available 10/25/2011 CSRP - Stimulants No Information not available [...] available 04/03/2015 Seat Belts Used Routinely Yes Information not available 10/14/2011 Are You Sexually Active? Yes Information not available 04/03/2015 Smoke Alarm In Home Yes Information not available 10/14/2011 Do You Or Have You Ever Used Smokeless Tobacco? Never Used Smokeless Tobacco Information not available 08/27/2019 How Much Tobacco Do You Smoke? No Information not available 08/27/2019 What Types Of Sporting Activities Do You Participate In? Hiking [place] Information not available 09/01/2016 General Stress Level [...] LastModified Time Mother Heart disease 80 [id number] Not available 07/09/2013 03:00:15 Father Malignant tumor of lung 80 previo usly record ed as Cancer - Lung [id number] Not available 07/09/2013 03:00:15 Medical History Condition Response Hypertension Y Immunizations Vaccine Type Date Status Note Provider Nam e and Address Organization Details Recorded Time Td(adult) unspecified formulation 5 completed Not Available [facility] 10/13/2011 05:21:07 Influenza, split virus, trivalent, preservative 1 completed Not Available [facility] 12/15/2019 02:28:47 Influenza, split virus, quadrivalent, PF 4 completed Not Available [facility] 12/15/2019 02:18:56 Influenza, split virus, quadrivalent, PF 4 completed Not Available [facility] 12/15/2019 02:19:21 Tdap 5 completed Not Available [facility] 12/15/2019 02:28:49 Influenza, split virus, trivalent, PF 3 completed Not Available [facility] 12/29/2019 02:10:38 Influenza, split virus, quadrivalent, PF 6 completed Not Available [facility] 12/15/2019 02:21:04 Influenza, split virus, quadrivalent, PF 7 completed Not Available [facility] 12/15/2019 02:34:53 Influenza, split virus, quadrivalent, PF 8 completed Not Available [facility] 12/15/2019 02:26:38 Influenza, split virus, quadrivalent, PF 9 completed Not Available [facility] 12/15/2019 02:24:08 zoster recombinant 9 completed Not Available [facility] 12/29/2019 02:10:44 zoster recombinant 9 completed Not Available [facility] 12/29/2019 02:10:45 pneumococcal polysaccharide PPV23 1 completed [facility]/07[facility]2021 17:14:28 Influenza, split virus, quadrivalent, preservative 0 completed [facility] 09/22/2020 17:12:33 COVID-19, mRNA, LNP-S, PF, 30 mcg/0.3 mL dose 1 completed [facility] 05/07/2021 15:54:54 COVID-19, mRNA, LNP-S, PF, 30 mcg/0.3 mL dose 1 completed [facility] 05/07/2021 15:55:20 Influenza, high-dose, quadrivalent, PF 1 completed [facility] 08/27/2021 14:44:31 Past Encounters Encounter ID Performer Location Encounter Start Date Encounter Closed Date Diagnosis/Indication Diagnosis SNOMED-CT Code Diagnosis ICD10 Code Diagnosis Note [id number] [facility], [address] [place] [address] 11/02/2004 13:52:45 11/02/2004 15:45:28 [id number] [facility], [address] [place] [address] 01/06/2005 13:59:49 01/06/2005 17:24:15 [id number] [facility], [address] [place] [address] 03/03/2005 15:42:21 12/18/2008 02:02:29 [id number] [facility], [address] [place] [address] 09/21/2005 10:31:05 09/24/2005 12:42:59 [id number] [facility], [address] [place] [address] 11/02/2005 10:09:30 12/18/2008 02:02:29 [id number] Radiology , [facility] [address] [place] [address] 11/02/2005 10:37:35 12/18/2008 02:02:29 [id number] Radiology , [facility] [address] [place] [address] 11/02/2005 00:00:00 12/18/2008 02:02:29 [id number] , [facility], [address] [place] [address] 11/16/2005 13:36:59 12/18/2008 02:02:29 [id number] LAB - [facility] [address] [place] [address] 11/16/2005 14:11:58 11/16/2005 14:12:26 [id number] Eye Care, [address] [address] 12/09/2005 13:57:28 12/18/2008 02:02:29 [id number] [facility] [address] [place] [address] 04/07/2006 14:29:56 04/07/2006 15:44:23 [id number] , [facility] [address] [place] [address] 07/12/2006 08:44:57 07/12/2006 11:37:46 [id number] , [facility], [address] [place] [address] 11/03/2006 13:24:11 11/03/2006 16:50:12 [id number] [facility], [address] [place] [address] 09/20/2008 11:36:07 12/18/2008 02:02:29 [id number] , [facility], [address] [place] [address] 04/10/2009 09:32:04 04/15/2009 09:52:45 [id number] [facility] [address] [place] [address] 01/22/2010 10:31:44 01/28/2010 14:38:42 [id number] Ana Erazo NP [facility] [address] [place] [address] 03/24/2010 14:50:21 03/26/2010 13:44:47 [id number] [facility], [address] [place] [address] 04/15/2010 16:05:12 04/17/2010 09:34:34 [id number] [facility], [address] [place] [address] 08/11/2010 10:05:37 08/13/2010 11:44:09 [id number] [facility], [address] [place] [address] 10/25/2011 15:30:52 10/27/2011 11:03:50 [id number] [facility] , [facility] [address] [place] [address] 10/25/2011 16:44:03 10/26/2011 13:23:32 [id number] Lauryn Cruz MD [facility], [address] [place] [address] 02/02/2013 13:49:03 02/02/2013 14:52:13 [id number] Tino Young [facility], [address] [place] [address] 02/22/2013 09:11:13 02/22/2013 09:51:35 [id number] [facility] JOSE R [facility], [address] [place] [address] 12/12/2013 06:26:34 12/12/2013 10:56:47 Influenza vaccine needed 0970244525 [id number] Isabella Norton MA [facility], [address] [place] [address] 12/13/2013 11:28:05 12/13/2013 13:30:17 Upper respiratory infection 32266385 [id number] Jessica Zuñiga MA , [facility], [address] [place] [address] 01/28/2014 13:34:09 01/30/2014 09:33:11 Allergic rhinitis 90677249 pt with persistent cough x 2 months and nasal congestion . suspicion of allergic rhinitis given no constituti onal findings and airways are clear. pt to report in 2 weeks if symptoms have not improved. [id number] Emma Block [facility], [address] [place] [address] 02/27/2014 08:13:30 02/28/2014 09:51:11 Olecranon bursitis 465405989 [id number] Lauryn Cruz MD , [facility], [address] [place] [address] 03/18/2014 10:17:55 03/18/2014 11:07:34 Adult health examination 793178501 see Risk Assessment and Lifestyle Change Counseling section above Counseling [id number] Essential hypertension 07897100 at goal continue meds [id number] Jessica Zuñiga MA , [facility], [address] [place] [address] 06/25/2014 14:13:42 06/25/2014 15:50:10 Otitis media 25151121 Allergic rhinitis 09694300 [id number] Suzy Heart , [facility], [address] [place] [address] 09/16/2014 09:53:40 09/16/2014 10:19:59 Benign essential hypertension 2590221 Blood pressure at goal Influenza vaccine needed 8003049481 [id number] Silvia Valladares LPN [facility], [address] [place] [address] 03/12/2015 14:14:18 03/12/2015 14:43:02 Otitis 48666302 suggest probiotics , acetaminop hen prn pain call if sx persist or increase Benign ess ential hypertension 7851450 will increase lisinopril to 40mg, keep HCTZat 12.5mg. Pt has PHA next month and will bring readings to appt [id number] [facility], [address] [place] [address] 04/03/2015 09:55:41 04/08/2015 15:22:18 Adult health examination 787088508 see Risk Assessment and Lifestyle Change Counseling section above Counseling [id number] Essential hypertension 18802045 Administra tion of diphtheria, pertussis, and tetanus vaccine 014750997 [id number] Georgina Reid , [facility], [address] [place] [address] 03/10/2016 13:50:08 03/15/2016 09:05:36 Varicella vaccination 82393700 Z23 Essential hypertension 69276751 I10 at goal [id number] Lauryn Cruz MD , [facility], [address] [place] [address] 09/01/2016 14:03:23 09/02/2016 15:08:49 Adult health examination 825304278 Z00.00 see Risk Assessment and Lifestyle Change Counseling section above Counseling 341488188 Z71 .9 Active or passive immunization 878802398 Z23 Essential hypertension 47826583 I10 at goal Solitary n odule of lung 659874929 R91.[address] scan with nodule several years ago [id number] Lauryn Cruz MD , [facility], [address] [place] [address] 07/13/2017 14:01:38 07/13/2017 15:08:35 Dysplastic nevus of skin 661293045 D22.9 will return for biopsy [id number] Lauryn Cruz MD , [facility], [address] [place] [address] 08/19/2017 13:26:43 08/19/2017 14:26:53 Neoplasm of uncertain behavior of skin 98569862 D48.5 lesion biopsies sutures out in 5 days [id number] Lauryn Cruz MD , [facility], [address] [place] [address] 08/24/2017 13:42:19 08/25/2017 08:17:40 Active or passive immunization 416279791 Z23 Dysplastic nevus of skin 782779434 D22.9 s/p biopsy will see plastic surgery for removal [id number] Lauryn Cruz MD , [facility], [address] [place] [address] 02/16/2018 09:48:30 02/16/2018 10:33:28 Adult health examination 896236273 Z00.00 see Risk Assessment and Lifestyle Change Counseling section above Counseling 514259662 Z71 .9 Depression screening 171 002349 Z13.89 depression screening tool administer ed, entered into emr, scored and discussed, time greater than 7.5 minutes Neoplasm o f uncertain behavior of skin 17811643 D48.5 atypis on ear needs excision 4968050 Lit Jaquez MD , [facility], [address] [place] [address] 04/30/2018 08:50:00 04/30/2018 09:41:26 Heel pain 4775589 M79.672 Patient presents with left heel pain [...] Discussed the option of getting X-ray at [facility] ER. Opted to see [facility] in AM tomorrow. Crutches dispensed in the office today. Advised to avoid weight bearing. Encouraged to use NSAIDs prn. Indication s for ER use reviewed. [id number] PRIMO Atkinson FP, [facility], [address] [place] [address] 07/03/2018 11:35:13 07/04/2018 16:39:05 Allergic rhinitis 63357912 J30.9 pt with persistent cough x 2 months and nasal congestion . suspicion of allergic rhinitis given no constituti onal findings and airways are clear. pt to report in 2 weeks if symptoms have not improved. [id number] KIARA Mayo, [facility], [address] [place] [address] 07/14/2018 14:55:37 07/14/2018 16:03:02 Acute upper respiratory infection 23559241 J06.9 Educated patient that URI is a [...] take these two medication s simultaneo usly. [id number] Deborah Badillotomas Monsalve, [employer]IE , [facility], [address] [place] [address] 07/25/2018 08:52:53 07/26/2018 14:10:11 Pneumonia 880350240 J18.9 resolving but persistent nocturnal coughimpro mady aerationaf ebrilerx as needed for nocturnal symptomsfo llow up x-ray ordered. [id number] Lauryn Cruz MD , [facility], [address] [place] [address] 08/21/2018 09:57:33 08/30/2018 09:13:11 Benign essential hypertension 8913724 I10 Blood pressure NOT at goal.will take meds every day decrease salt walk daily and f/u Active or passive immunization 364697063 Z23 Pneumonia 473954797 J18. 9 lungs clear will et f/u in 2 weeks Insomnia 492196857 G47.0 0 will add trazadone and f/u [id number] Lauryn Cruz MD , [facility], [address] [place] [address] 09/14/2018 11:56:21 09/15/2018 15:28:47 Anxiety 38799516 F41.9 will start sertraline Essential hypertension 13869547 I10 will switch to chlorthali done to see if can improve bp f/u 15/25 minutes discussing choice of meds [id number] JUDE Álvarez , [facility], [address] [place] [address] 10/09/2018 07:55:54 10/09/2018 08:50:30 Anxiety 22237237 F41.9 discussed sx tx- nutrtion,, sleep hygiens, exercise. Benign ess ential hypertension 8007163 I10 improved- continue chlorthali sone- pt decreased to 1/2 tac- f/u 1 months with PCP [id number] Ayse Harrison, OD Eye [facility], [facility] [address] [place] [address] 11/07/2018 11:07:50 11/07/2018 12:17:18 Presbyopia 92593316 H52.4 Narrow angle 911468640 H 40.033 ONH appear healthy, IOP wnl OU. pt ed. refer for possible PI. RTC ROBERT if pain, redness, loss of vision occur. Also RTC 6 mo for IOP check. Blepharitis 04289700 H01 .9 pt ed. recommend hot compress qd. Lesion of eyelid 9872340 02 H02.89 RONNELL, likely old chalazion, appears benign. not bothersome to patient. observe for now. [id number] JUDE Álvarez, [facility], [address] [place] [address] 11/13/2018 08:57:38 11/14/2018 08:17:27 Benign essential hypertension 1362376 I10 improved- continue chlorthali sone- pt decreased to 1/2 tac- check bmp- f/u PCP in 2 months-devi ner as needed Essential hypertension 56638559 I10 Depressive disorder 3548 9007 F32.9 improvemen t in sleep, exercise- activities . situationa l due to work stress/danie assment at job- discussed staying on med c 6-12 months- f/u with PCP [id number] Ana Erazo NP FP, [facility], [address] [place] [address] 12/07/2018 15:17:39 12/08/2018 08:19:58 Depressive disorder 55503239 F32.9 note for rtw - f/u for pha and prn [id number] Hermila Sung NP , [facility], [address] [place] [address] 01/18/2019 08:27:38 01/19/2019 08:26:01 Anxiety 82700622 F41.9 Situationa l anxiety/pa herrera - note given to patient to return back to work on february 09, 2019. Patient will also f/u with [facility]. F/u with PCP as planned in January. Come back sooner if needing work note changes/ex tended. [id number] Lauryn Cruz MD FP, [facility], [address] [place] [address] 02/22/2019 09:51:41 02/22/2019 11:09:06 Adult health examination 416801630 Z00.00 see Risk Assessment and Lifestyle Change Counseling section above Counseling 454524562 Z71 .9 Depression screening 171 250434 Z13.89 depression screening tool administer ed, entered into emr, scored and discussed, time greater than 7.5 minutes Essential hypertension 80096465 I10 on chlorthali done Anxiety 06595565 F41.9 Depressive disorder 3548 9007 F32.9 [id number] Lauryn Cruz MD , [facility], [address] [place] [address] 08/27/2019 09:59:44 08/27/2019 13:48:33 Essential hypertension 41889320 I10 on chlorthali done stable Active or passive immunization 503075373 Z23 Depressive disorder 3548 9007 F32.9 will increase paroxetine as it helps sleep Knee pain 70913235 M25.5 69 likley osteoarthr itis will work to increase strength consider pt [id number] JUDE Álvarez , [facility], [address] [place] [address] 09/17/2019 11:33:19 09/17/2019 11:57:00 Pain in left knee 3552339354 56887 M25.021 [id number] Maria Eugenia tamez, PT Physical Therapy, [facility] [address] [place] [address] 09/24/2019 08:56:46 09/24/2019 10:41:39 Pain in left knee 0375808302 25828 M25.169 [id number] Maria Eugenia tamez, PT Physical Therapy, [facility] [address] [place] [address] 10/01/2019 09:49:50 10/01/2019 10:32:59 Pain in left knee 8637411185 28715 M25.736 [id number] Maria Eugenia tamez, PT Physical Therapy, [facility] [address] [place] [address] 2019 10:27:59 2019 13:23:39 Pain in left knee 0402100454 82551 M25.622 [id number] Ellen Gaxiola MD FP, [facility], [address] [place] [address] 06/10/2020 09:58:01 06/11/2020 11:44:11 Orthopnea 36873640 R06.01 subacute sx over the past monthcanno [...] r/chills or sx of infection Essential hypertension 21050283 I10 not at goalsee notes aboveeval in office pending [id number] Aileen Roberts MD , [facility], [address] [place] [address] 06/10/2020 11:44:08 06/11/2020 12:08:18 Dyspnea 557906633 R06.00 acute PND; no s/x chf on examCOVID seems unlikely but will test given dry cough Benign ess ential hypertension 2439644 I10 very uncontroll ed, add amlodipine follow up 2 daysEKG no obvious findings [id number] Aileen Roberts MD , [facility], [address] [place] [address] 06/12/2020 16:36:08 06/13/2020 11:52:37 Essential hypertension 33476131 I10 well controlled and at goal today; advised to watch for edema from amlodipine ; continue taking meds daily; check BP 3-4 times a week with home cuff; follow up one month [id number] JUDE Álvarez , [facility], [address] [place] [address] 07/04/2020 09:59:22 07/07/2020 16:06:48 Edema of foot 467435743 R60.0 SUSPECT S/E FROM AMLODIPINE , SOB IMPROVED- CHECK LABS- F/U WITH RESULTS, BP CONTROLLED - will check labs and f/u with results-- liver enzymes elevated- review at next visit Major depr essive disorder 973359351 F32.0 PT REPORTED TODAY- NOT TAKING PAROXETINE - will f/u at 07/17 visit. [id number] Lauryn Cruz MD , [facility], [address] [place] [address] 07/17/2020 11:39:16 07/29/2020 14:07:38 Depressive disorder 59279347 F32.9 will restart paroxetine and f/u [id number] Lauryn Cruz MD , [facility], [address] [place] [address] 05/07/2021 15:34:39 05/07/2021 16:32:58 Adult health examination 809974259 Z00.00 see Risk Assessment and Lifestyle Change Counseling section above Counseling 520564007 Z71 .9 including cardiovasc ular risk reduction counseling Depression screening 171 620918 Z13.31 depression screening tool administer ed, entered into emr, scored and discussed, time greater than 7.5 minutes Screening for alcohol abuse 836138042 Z13.39 Essential hypertension 44244380 I10 on chlorthali done stable Screening for malignant neoplasm of colon 125277532 Z12.11 Referral for a DIRECT booked colonoscop y. This patient is a healthy ASA Class 1 or 2 patient (only mild systemic disease), or a STABLE, well controlled insulin dependent diabetic. They do not have serious cardiac disease ie VA/angiopl asty within 1 year, symptomati c CHF; renal failure with CKD 4 or 5; take Coumadin, Plavix, Aggrenox, etc. Active or passive immunization 794740229 Z23 Primary er ectile dysfunction 956431403 N52.9 Health Concerns Section Related Observation LastModified by Organization Detai ls LastModified Time None Recorded Concern Status LastModified by Organization Details LastModified Time None Recorded Advance Directives Directive N: not interested @ this lázaro e Payers Encounter Date Sequence Insurance Name Policy Number Policy Wren Covered Member ID Wren Member ID Guarantor Name 06/10/2020 1 [facility] Jose Hamlin [id number] Jose Hamlin 06/12/2020 1 [facility] Jose Hamlin [id number] Jose Hamlin 07/04/2020 1 [facility] Jose Hamlin [id number] Jose Hamlin 07/17/2020 1 [facility] Jose Hamlin [id number] Jose Hamlin 05/07/2021 1 MEDICARE B-PR: NATIONAL [employer] Dustin Haney [id number] Jose Hamlin Notes Date Note Type Note Provider Name and Address Organization Details Recorded Time 0 text/html Patient agreed to this visit via phone or secure telehealth platform due to the COVID -19 pandemic. Patient understands this is a scheduled visit and the usual procedures with regard to billing and confidentiality apply. Patient was notified that the provider location is [facility] Patient location: home During the visit the [...] chills, unusual fatiguenever smoker Ellen Gaxiola MD [address] [place] [address], [phone], [facility] 06/12/2020 15:34:43 0 text/html SK - seen [...] was notified that the provider location is [facility] Patient location: home During the visit the [...] chills, unusual fatiguenever smoker Aileen Roberts MD [address] [place] [address], [phone], [facility] 06/10/2020 16:58:40 0 text/html started amlodpine taken 1 dose and so far tolerating well.BP much improved. BP much lower, his symptoms have resolved. COVID test negative (as expected), he did not do otehr labs. as he's feeling better, no need to do them now. Aileen Roberts MD [address] [place] [address], [phone], [facility] 06/13/2020 07:01:46 0 text/html reviewed pts hx- [...] was notified that the provider location is [facility] Patient location: home During the visit the patient? s medical history and medical record were reviewed. The patient was notified to call our office for worsening or urgent symptoms. JUDE Álvarez [address] [place] [address], [phone], [facility] 07/04/2020 21:39:14 0 text/html Pt stated he [...] was notified that the provider location is [facility] Patient location: home During the visit the patient? s medical history and medical record were reviewed. The patient was notified to call our office for worsening or urgent symptoms. Lauryn Cruz MD [address] [place] [address], [phone], [facility] 07/27/2020 20:10:07 1 text/html Physical Exam/MaleReported bypatient.PHAPatient [...] work but feeling better Lauryn Cruz MD [address] [place] [address], [phone], [facility] 05/10/2021 20:40:56
--- OUTSIDE RECORDS SUMMARY | 2025-03-20 12:07 | XMS_ITS | Encounter Summary ---
Author Organization [employer] Address [address] [place] [address] Care Team Providers Care Automotive Generator Repairer Name Role Phone Argenis Mitchell MD Primary Care Provider [phone] Bird Fields PharmD Unavailable [phone] Encounter Details Date Type Department Care Team (Late st Contact Info) Description 07/05/2024 Abstract [facility] [address] [place] [address] Anais Warner MA Social History Tobacco Use Types Packs/Day Years [...] on filedocumented in this encounter Care Teams Automotive Generator Repairer Relationship Specialty Start Date End Date Argenis Mitchell MD [address] [place] [address] PCP - General Family Medicine 09/10/22 Bird Fields, LakeshaD [address] [place] [address] Pharmacist Internal Medicine 08/27/24 documented as of this encounter
--- OUTSIDE RECORDS SUMMARY | 2025-03-20 12:07 | XMS_ITS | Encounter Summary ---
Author Organization [employer] Address [address] [facility] 7 [place] [address] Care Team Providers Care Client Reporting Associate Name Role Phone Argenis Mitchell MD Primary Care Provider [phone] Bird Fields PharmD Unavailable [phone] Reason for Visit * Reason Comments Med Refill Encounter Details Date Type Department Care Team (Late st Contact Info) Description 05/21/2024 Refill [facility] [address] [place], [place] [phone] Argenis Mitchell MD [address] [place], [place] [phone] Essential hypertension Social History Tobacco Use Types [...] of this encounter Visit Diagnoses Diagnosis Essential hypertension Unspecified essential hypertension documented in this encounter Care Teams Client Reporting Associate Relationship Specialty Start Date End Date Argenis Mitchell MD [address] [place] [address] PCP - General Family Medicine 09/10/22 Bird Fields, LakeshaD [address] [place] [address] Pharmacist Internal Medicine 08/27/24 documented as of this encounter
--- OUTSIDE RECORDS SUMMARY | 2025-03-20 12:07 | XMS_ITS | Encounter Summary ---
Author Organization [employer] Address [address] [facility] 7[address] [place] [address] Care Team Providers Care Chart Clerk Name Role Phone Argenis Mitchell MD Primary Care Provider [phone] Bird Fields PharmD Unavailable [phone] Encounter Details Date Type Department Care Team ([facility] st Contact Info) Description 04/20/2024 Telephone [facility] MED[facility]INE [address] [place], [place] [phone] Argenis Mitchell MD [address] [place], [place] [phone] Social History Tobacco Use Types Packs/Day Years [...] on filedocumented in this encounter Care Teams Chart Clerk Relationship Specialty Start Date End Date Argenis Mitchell MD [address] [place] [address] PCP - General Family Medicine 09/10/22 Bird Fields, LakeshaD [address] [place] [address] Pharmacist Internal Medicine 08/27/24 documented as of this encounter
== END 2025-03-20 10:57 | disposition home or self-care (01) ==
LOC: HO.HSMS 10:20
PROVIDERS: PCP Family Medicine; Visit Provider Physician Assistant Medical
DX: G47.50 Parasomnia, unspecified (principal); G47.33 Obstructive sleep apnea (adult) (pediatric); R53.83 Other fatigue; G47.9 Sleep disorder, unspecified; M79.605 Pain in left leg
CPT/HCPCS: 99214

== ENCOUNTER → 2025-03-20 10:20 | Outpatient (BNVA) | payer MEDICARE, SELFPAY | PROVIDERS: PCP Family Medicine; Visit Provider Physician Assistant Medical | DX: G47.33 Obstructive sleep apnea (adult) (pediatric) (principal); G47.50 Parasomnia, unspecified; R53.83 Other fatigue; M79.605 Pain in left leg; Z99.89 Dependence on other enabling machines and devices | CPT/HCPCS: 99212 ==

== ENCOUNTER 2025-09-12 12:06 | Outpatient (REF) | payer MEDICARE, SELFPAY ==
--- OUTSIDE RECORDS SUMMARY | 2025-09-12 11:30 | XMS_ITS | Encounter Summary ---
Author Organization [employer] Address [address] [place] [address] 7t [place] [address] Care Team Providers Care Promotions Firm Accounts Manager Name Role Phone Argenis Mitchell MD Primary Care Provider [phone] Bird Fields PharmD Unavailable [phone] Encounter Details Date Type Department Care Team (Late st Contact Info) Description 09/12/2025 11:30 AM EDT Office Visit [facility] [address] [place], [place] [phone] Argenis Mitchell MD [address] [place] [address] Essential hypertension (Primary Dx); Dyslipidemia; Melanoma of scalp (CMS/HCC) (HCC); Basal cell carcinoma (BCC) of skin of neck; SHARMAINE (obstructive sleep apnea); Type 2 diabetes mellitus with hyperglycemia, without long-term current use of insulin (HCC); Encounter for immunization Social History Tobacco Use Types Packs/Day Years Used Date Smoking Tobacco: Never Smokeless Tobacco: Never Alcohol Use Standard Drinks/Week Comments Never 0 (1 standard drink = 0.6 oz pur e alcohol) Depression Answer Date Recorded Patient Health Questionnaire-9 Score 0 09/12/2025 Patient Health Questionnaire-9 Score 0 09/12/2025 Last PHQ-9: Questionnaire Data Not on file 1 Housing Stability Answer Date Recorded What is your housing situation today? I have yolie alan 06/06/[address] you li ve. Do you have problems with any of the following? None of the above 06/06/2025 Food Insecurity Answer Date Recorded Within the past 12 months, y ou worried that your food would run out before you got money to buy more: Never True 06/06/2025 Within the past 12 months,th e food you bought just didn't last and you didn't have enough money to get more: Never True 08/2025 Transportation Answer Date Recorded In the past 12 months, has l ack of transportation kept you from medical appts, meetings, work or from getting things needed for daily living? No 06/06/2025 Utilities Answer Date Recorded In the past 12 months, has t he electric, gas, oil or water company threatened to shut off services in your home? No 06/06/2025 Depression Answer Date Recorded Patient Health Questionnaire-2 Score 0 09/12/2025 Internet Access Answer Date Recorded Internet Access Q1 Yes 06/06/2025 Internet Access Q2 Not on file 06/06/2025 Sex and Gender Information Value Date Recorded Sex Assigned at Male 09/27/2022 10:40 AM EDT Legal Sex Male 10:40 AM EDT Gender Identity Male 09/27/2022 10:40 AM EDT Sexual Orientation Choose not to disclose 2021 10:40 AM EDT documented as of this encounter Last Filed Vital Signs Vital Sign Reading Time Taken Comments Blood Pressure 130/76 09/12/2025 11:31 AM EDT Pulse 67 09/12/2025 11:31 AM EDT Temperature 36 C (96.8 F) 09/12/2025 11:31 AM EDT Respiratory Rate 17 09/12/2025 11:3 1 AM EDT Oxygen Saturation 96% 09/12/2025 11: 31 AM EDT Inhaled Oxygen Concentration - - Weight 93.8 kg (206 lb 12.8 oz) 025 11:31 AM EDT Height 170.2 cm (5' 7 ) 09/12/2025 11:3 1 AM EDT Body Mass Index 32.39 09/12/2025 11:31 AM EDT documented in this encounter Functional Status * Over the past 2 weeks, how often have you been bothered by any of the following problems? Question Answer Date of Assessment Author Patient Health Questionnaire -2 Score 0 09/12/2025 11:55 AM EDT Shaun Warner, [place] * Little interest or pleasure in doing things Answer Date of Assessment Author Not at all 09/12/2025 11:55 AM Anais To [place] * Feeling down, depressed, or hopeless Answer Date of Assessment Author Not at all 09/12/2025 11:55 AM Anais To [place] * Trouble falling or staying asleep, or sleeping too much Answer Date of Assessment Author Not at all 09/12/2025 11:55 AM Anais To [place] * Feeling tired or having little energy Answer Date of Assessment Author Not at all 09/12/2025 11:55 AM Anais To [place] * Poor appetite or overeating Answer Date of Assessment Author Not at all 09/12/2025 11:55 AM Anais To [place] * Feeling bad about yourself - or that you are a failure or have let yourself or your family down Answer Date of Assessment Author Not at all 09/12/2025 11:55 AM Anais To [place] * Trouble concentrating on things, such as reading the newspaper or watching television Answer Date of Assessment Author Not at all 09/12/2025 11:55 AM Anais To [place] * Moving or speaking so slowly that other people could have noticed? Or the opposite - being so fidgety or restless that you have been moving around a lot more than usual. Answer Date of Assessment Author Not at all 09/12/2025 11:55 AM Anais To [place] * Thoughts that you would be better off or hurting yourself in some way Answer Date of Assessment Author Not at all 09/12/2025 11:55 AM Anais To [place] * Patient Health Questionnaire-9 Score Answer Date of Assessment Author 0 09/12/2025 11:55 AM Anais To [place] documented as of this encounter Plan of Treatment Upcoming Encounters Date Type Department Care Team (Late st Contact Info) Description 11/18/2025 10:00 AM EST Telemedicine [facility] [address] [place] [address] Bird Fields, PharmD [address] [place] [address] documented as of this encounter Procedures Procedure Name Priority Date/Time Associated Diagnosis Comments POCT GLYCOSYLATED HEMOGLOBIN (HGB A1C) Routine 09/12/2025 11:32 AM EDT Type 2 diabetes mellitus with hyperglycemia, without long-term current use of insulin (HCC) POCT GLUCOSE Routine 09/12/2025 11:32 AM EDT Type 2 diabetes mellitus with hyperglycemia, without long-term current use of insulin (HCC) documented in this encounter Results * (ABNORMAL) POCT glucose manually resulted (09/12/2025 11:32 AM EDT) Glucose Blood, POC 242(A) 60 - 200 mg/dL QC Media Lot # [id number] Lot# Expiration Date Blood Capillary blood specimen / Unknown 09/12/2025 11:32 AM EDT us Argenis Mitchell MD POINT OF CARE TEST ENTER/EDIT OR DERABLES Final Result * (ABNORMAL) POCT glycosylated hemoglobin (Hgb A1c) (09/12/2025 11:32 AM EDT) Hemoglobin A1C 6.6(A) 4.0 - 5.7 % QC Media Lot # [id number] Lot# Expiration Date Blood Capillary blood specimen / Unknown 09/12/2025 11:32 AM EDT Argenis Mitchell MD POINT OF CARE TEST ENTER/EDIT OR DERABLES Final Result documented in this encounter Visit Diagnoses Diagnosis Essential hypertension- Primary Unspecified essential hypertension Dyslipidemia Other and unspecified hyperlipidemia Melanoma of scalp (CMS/HCC) (HCC) Basal cell carcinoma (BCC) of skin of neck SHARMAINE (obstructive sleep apnea) Obstructive sleep apnea (adult) (pediatric) Type 2 diabetes mellitus with hyperglycemia, without long-term current use of insulin (HCC) Encounter for immunization documented in this encounter Additional Health Concerns Assessment Noted Time PHQ-9 Depression Total Score: 0 09/12/20 25 11:55 AM EDT documented as of this encounter Care Teams Promotions Firm Accounts Manager Relationship Specialty Start Date End Date Argenis Mitchell MD [address] [place] [address] PCP - General Family Medicine 09/10/22 Bird Fields, LakeshaD [address] [place] [address] Pharmacist Internal Medicine 08/27/24 documented as of this encounter
[2025-09-12 13:29] LABS: Hematocrit 41.0 % (42.0-52.0); Hemoglobin 14.4 g/dl (14.0-18.0); Mean Corpuscular HGB Conc 35.1 g/dl (31.0-36.0); Mean Corpuscular Hemoglobin 30.7 pg (27.0-33.0); Mean Corpuscular Volume 87.4 fL (80.0-98.0); NRBC Abs Auto 0.000 X10*3/uL (0.0-0.012); NRBC Pct Auto 0.0 /100WBC (0.0-0.2); Platelet Count 216 X10*3/uL (160-400); Red Blood Count 4.69 X10*6/uL (4.60-5.80); White Blood Count 7.5 X10*3/uL (4.8-10.8)
[2025-09-12 13:57] LABS: Cholesterol 124 mg/dL (<200); HDL Cholesterol 26 mg/dL (>40); Triglycerides 201 mg/dL (<150)
[2025-09-12 14:07] LABS: Alanine Aminotransferase 50 U/L (0-40); Albumin Level 5.0 g/dL (3.5-5.0); Alkaline Phosphatase 58 U/L (39-117); Anion Gap 15 (12-20); Aspartate Amino Transferase 29 U/L (5-37); Blood Urea Nitrogen 22 mg/dL (9-16); Calcium 10.1 mg/dL (8.4-10.2); Carbon Dioxide 33 mmol/L (22-29); Chloride 102 mmol/L (96-108); Cholesterol 124 mg/dL (<200); Estimated Glomerular Filt Rate > 60; HDL Cholesterol 26 mg/dL (>40); Potassium 3.9 mmol/L (3.3-5.1); Sodium 146 mmol/L (135-145); Total Protein 7.6 g/dL (6.5-8.0); Triglycerides 201 mg/dL (<150)
[2025-09-12 14:14] LABS: Microalbum/Creatinine Ratio Ur 46.9 ug/mg cr (<30)
[2025-09-12 14:30] LABS: Ferritin 132 ng/mL (20-250)
[2025-09-12 14:34] LABS: Folate 10.3 ng/mL (> or = 4.0); Vitamin B12 217 pg/mL (200-900)
[2025-09-12 15:17] LABS: Reflex LDLD? No
--- OUTSIDE RECORDS SUMMARY | 2025-09-12 15:19 | XMS_ITS | Encounter Summary ---
Author Organization [facility] Address [address] [place] [address] Phone Care Team Providers Care Road Design Engineer Name Role Phone Baldomero Vega MD Primary Care Provider [phone] Yola Cruz Primary Care Provider [phone] Ellen Richardson MD Unavailable [phone] Darci Cruz MD Primary Care Provider [phone] Darci Cruz MD Primary Care Provider [phone] Argenis Mitchell MD Primary Care Provider Encounter Details Date Type Department Care Team (Late st Contact Info) Description 03/24/2018 Procedure Pass OR Admitting Dept - Virtual Department [address] [place] [address] Social History Tobacco Use Types Packs/Day Years Used Date Smoking Tobacco: Never Assessed Sex and Gender Information Value Date Recorded Sex Assigned at Male 07/02/2022 12:28 PM EDT Legal Sex Male 9:55 PM EDT Gender Identity Male 07/02/2022 12:28 PM EDT Sexual Orientation Straight 07/02/2022 12 :28 PM EDT documented as of this encounter Plan of Treatment Not on file documented as of this encounter Visit Diagnoses Not on filedocumented in this encounter Additional Health Concerns Infection Onset Date Last Indicated Resolved Time CoV-Risk 06/12/2020 06/12/2020 06/26/2020 1:28 AM EDT CoV-Risk 06/20/2021 06/20/2021 06/30/2021 1:24 AM EDT documented as of this encounter Care Teams Road Design Engineer Relationship Specialty Start Date End Date Baldomero Vega MD [address] [place] [address] [email or web address] PCP - General 09/13/17 04/30/18 Yola Cruz PA [address] [place] [phone] PCP - General Cleaners 05/01/18 09/22/21 Darci Cruz MD [address] [place] [phone] PCP - General Family Medicine 09/23/21 07/28/22 Darci Cruz MD [address] [place] [phone] PCP - General Family Medicine 07/29/22 07/15/24 Argenis Mitchell MD [address] [place] [phone] PCP - General Family Medicine 07/16/24 Ellen Richardson MD [address] [place] [phone] Insurance Assigned Provider Family Medicine 10/03/19 documented as of this encounter Additional Source Comments The information contained in this document represents components of the legal health record. It is not the complete legal health record.[facility]
--- OUTSIDE RECORDS SUMMARY | 2025-09-12 15:19 | XMS_ITS | Clinical Summary ---
Author Organization [facility] Address [address] [place] [id number] Phone Care Team Providers Care Senior Media Director Name Role Phone Ellen Richardson MD Unavailable [phone] Aundrea Mitchell MD Primary Care Provider [phone] Allergies No known active allergies Medications lisinopril (PRINIVIL,ZESTRI L) 40 MG tablet 04/20/2018 Act lyric hydroCHLOROthiaz fred (HYDRODIURIL) 25 MG tablet Take 25 mg by mouth daily. Active chlorthalidone (HYGROTON) 50 MG tablet Take 50 mg by mouth daily. 11 10/01/2019 Active PARoxetine (PAXIL) 10 MG tablet Take 30 mg by mouth daily. Takes 10 and 20 for total of 30 6 09/29/2019 Active PARoxetine (PAXIL) 20 MG tablet Take 30 mg by mouth daily. Takes 10 and 20 for total of 30 mg 04/24/2021 Active albuterol 90 mcg/actuation inhaler Inhale 2 puffs into the lungs every 6 (six) hours as needed for wheezing. 1 Inhaler 06/20/2021 Active amLODIPine (NORVASC) 10 MG tablet 07/05/2021 Active atorvastatin (LIPITOR) 10 MG tablet Take 10 mg by mouth daily. Active metFORMIN (GLUCOPHAGE-XR) 500 MG 24 hr tablet Take 500 mg by mouth 2 (two) times a day with meals. Active Active Problems Problem Noted Date Diagnosed Date Left knee pain 10/30/2019 Traumatic rupture of plantar fascia of left foot 05/01/2018 Immunizations Immunization Administration Dates Next Due COVID-19 (Pre-09/19) Pfizer Vaccine, mRNA, PF 04/01/2021 INFLUENZA, SPLIT VIRUS, TRIVALENT PF 08/20/2013 INFLUENZA, SPLIT VIRUS, TRIV ALENT W/ PRESERVATIVE IM 10/25/2011 Influenza Quadrivalent Prese rvative Free IM 08/27/2019,08/21/2018,08/24/2017,2015,09/16/2014,12/12/2013 Influenza Recombinant Erica valent Preservative Free IM 09/22/2020 Td, unspecified formulation 01/06/2005 Tdap 04/03/2015 Zoster recombinant 11/09/2019,11/05/2019, 019 Social History Tobacco Use Types Packs/Day Years Used Date Smoking Tobacco: Never Smokeless Tobacco: Never Alcohol Use Standard Drinks/Week Comments Yes 0 (1 standard drink = 0.6 oz pur e alcohol) a few drinks per month Education Answer Date Recorded Are you interested in more education? Not on summer e 03/25/2023 Are you concerned about learning? Not on file 03/25/2023 No 03/25/2023 No 03/25/2023 Digital Access Answer Date Recorded No 04/25/2023 No 04/25/2023 Reliable internet access at home? Not on file 04/25/2023 Device with a working camera? Not on file Intimate Partner Violence Answer Date R ecorded Are you denied basic needs s uch as food, clothing, or medical care? No 07/16/2024 In the past 12 months have y ou been in a relationship with a person who hurts, threatens, or tries to control you? No 07/16/2024 Are you denied basic needs s uch as food, clothing, or medical care? No 07/16/2024 In the past 12 months have y ou been in a relationship with a person who hurts, threatens, or tries to control you? No 07/16/2024 Sex and Gender Information Value Date Recorded Sex Assigned at Male 07/02/2022 12:28 PM EDT Legal Sex Male 9:55 PM EDT Gender Identity Male 07/02/2022 12:28 PM EDT Sexual Orientation Straight 07/02/2022 12 :28 PM EDT Last Filed Vital Signs Vital Sign Reading Time Taken Comments Blood Pressure 101/56 07/16/2024 10:34 AM EDT Pulse 61 07/16/2024 10:34 AM EDT Temperature 36.6 C (97.9 F) 07/16/2024 10:22 AM EDT Respiratory Rate 16 07/16/2024 10:34 AM EDT Oxygen Saturation 94% 07/16/2024 10:34 AM EDT Inhaled Oxygen Concentration - - Weight 93 kg (205 lb) 07/13/2024 8:32 AM EDT Height 177.8 cm (5' 10 ) 07/13/2024 8:40 AM EDT Body Mass Index 29.41 07/13/2024 8:32 AM EDT Plan of Treatment Health Maintenance Due Date Last Done Comments LIPID PANEL 1955 DEPRESSION SCREENING 1967 HEPATITIS C SCREENING 1973 COLOGUARD 2000 FIT TEST 2000 FOBT 2000 SIGMOIDOSCOPY 2000 VIRTUAL COLONOSCOPY 2000 CREATININE LEVEL 07/29/2023 07/29/2022 POTASSIUM LEVEL 07/29/2023 07/29/2022 Adult Td,Tdap Booster 04/03/2025 04/03/2015, 005 INFLUENZA VACCINE (#1) 2025 , 09/09/2022, 09/22/2020, Additional history exists COVID-19 VACCINE ( season) 2025 11/24/2023, 09/09/2022, 04/23/2021, Additional history exists SCREENING FOR DIABETES 05/28/2027 05/28/2024, 2022 RSV VACCINE (1 - 1-dose 75+ series) 2030 COLONOSCOPY 07/16/2034 07/16/2024, 09/23/2021 COLORECTAL CANCER SCREENING 07/16/2034 ZOSTER VACCINES Completed 11/09/2019, 07/2019, 08/27/2019 PNEUMOCOCCAL VACCINES (50+ years) Completed 11/24/2023, 05/07/2021 SMOKING STATUS SCREENING (Once After 26 Yrs) Completed 07/16/2024 HEPATITIS A VACCINES Aged Out No long er eligible based on patient's age to complete this topic HIB VACCINES Aged Out No longer eligi ble based on patient's age to complete this topic MENINGOCOCCAL VACCINES (ACWY) Aged Out No longer eligible based on patient's age to complete this topic MENINGOCOCCAL VACCINES (B) Aged Out N o longer eligible based on patient's age to complete this topic Medical Devices Not on file Procedures Procedure Name Priority Date/Time Associated Diagnosis Comments ENDOSCOPY, COLON 07/16/2024 9:39 AM EDT BASIC METABOLIC PANEL STAT 07/29/2022 1:10 PM EDT from Last 3 Months or Most Recently Relevant to Health Maintenance Results * ENDOSCOPY, COLON (07/16/2024 9:39 AM EDT) Narrative Transcriptions Daquan Wilkerson MD - 07/16/2024 9:39 AM EDT [facility] Patient Name: Jose Boubacar Attending MD:: DAQUAN WILKERSON MD, Procedure Date: 07/16/2024 9:39 AM Date of : 1955 Age: 68 Admit Type: Outpatient Gender: Male Room: [place] [address] Referring MD: AUNDREA MITCHELL Exam Type: Colonoscopy Indications: High risk colon cancer surveillance: Personalhistory of colonic polyps, Last colonoscopy: August 2021 Medications: Monitored Anesthesia Care Procedure: Informed consent was obtained from the patientafter discussion of the indications, limitations, alternatives, benefits, and risks of the procedure. Risks specifically discussed include but are not limited to medication reactions, missed lesions, bleeding, perforation, or the need for emergent surgery. Throughout the procedure, the patient's blood pressure, pulse, end-tidal CO2, and oxygensaturations were monitored continuously. The Olympus adult variable colonoscope CF-FB025E #4 was introduced through the anus and advanced to the terminal ileum, with identification of theappendiceal orifice and IC valve. The colonoscopy was performed without difficulty. The patient tolerated the procedure well. The quality of the bowelpreparation was good. The terminal ileum, ileocecal valve, appendiceal orifice, and rectum werephotographed. Complications: No immediate complications. Estimated blood loss:None. Findings: The terminal ileum appeared normal. Examination of the right colon was repeated in retroflexion and again in NBI. Retroflexion wasalso performed in the rectum. Multiple diverticula were found in the sigmoidcolon. Internal hemorrhoids were found duringretroflexion. The hemorrhoids were mild. A 5 mm polyp was found in the descending colon. The polyp was sessile. The polyp was removed with acold snare. Resection and retrieval were complete. Two sessile polyps were found in the transversecolon. The polyps were 3 to 5 mm in size. These polypswere removed with a cold snare. Resection and retrieval were complete. A 6 mm polyp was found in the ascending colon. The polyp was semi-sessile. The polyp was removed witha cold snare. Resection and retrieval werecomplete. The exam was otherwise without abnormality. Impression: - The examined portion of the ileum was normal. - Diverticulosis in the sigmoid colon. - Internal hemorrhoids. - One 5 mm polyp in the descending colon, removedwith a cold snare. Resected and retrieved. - Two 3 to 5 mm polyps in the transverse colon, removed with a cold snare. Resected andretrieved. - One 6 mm polyp in the ascending colon, removedwith a cold snare. Resected and retrieved. - The examination was otherwise normal. Recommendation: - Patient has a contact number available for emergencies. The signs and symptoms of potential delayed complications were discussed with thepatient. Return to normal activities tomorrow. Written discharge instructions were provided to thepatient. - Await pathology results. - Repeat colonoscopy in 3 years for surveillance. Daquan Wilkerson DAQUAN WILKERSON MD 07/16/2024 10:19:31 AM This report has been signed electronically. Number of Addenda: 0 Note Initiated On: 07/16/2024 9:39 AM Procedure Code(s): --- Professional --- 93637, Colonoscopy, flexible; with removal of tumor(s), polyp(s), or other lesion(s) by snare technique --- Technical --- 14280, Colonoscopy, flexible; with removal of tumor(s), polyp(s), or other lesion(s) by snare technique CPT copyright 2021 [employer]. All rights reserved. The codes documented in this report are preliminary and upon turnaround planner reviewmay be revised to meet current compliance requirements. Procedure Date: 07/16/2024 9:39:[address] [place] [address] [id number] Aundrea Mitchell MD GI PROCEDURE ORDERABLES Final Re sult * (ABNORMAL) Basic metabolic panel (07/29/2022 1:10 PM EDT) SODIUM 138 133 - 146 mmol/L [facility] CHLORIDE 98 96 - 108 mmol/L [facility] POTASSIUM 4.2 3.3 - 5.1 mmol/L [facility] CO2 31 21 - 35 mmol/L [facility] BUN 18 6 - 19 mg/dL [facility] CREATININE 1.10 0.5 - 1.5 mg/dL [facility] GLUCOSE 258(H) 70 - 99 mg/dL [facility] CALCIUM 10.4(H) 8.4 - 10.3 mg/dL [facility] EGFR 74 >59 mL/min/1.7 3m2 [facility] Comment:Estimated glomerular filtration rate calculated using the CKD-EPI refit equation. ANION GAP 13 10 - 20 mmol/L [facility] Blood 07/29/2022 1:10 PM EDT 07/29/2022 1:19 PM EDT Randy Kohler MD LAB BLOOD ORDERABLES Fin al Result [facility] [address] [place], [place] [id number] from Last 3 Months or Most Recently Relevant to Health Maintenance Insurance [facility] MEDICARE PART A & B [facility] MEDIC[facility] REPLACEMENT MEDICARE PART A & B [facility] MEDIC[facility] REPLACEMENT MEDICARE PART A & B [facility] MEDICARE REPLACEMENT MEDICARE PART A & B [facility] MEDICARE REPLACEMENT MEDICARE PART A & B Member Subscriber Plan / Payer (Ef fective 2020-Present) Name:Jose Hamlin Member ID:[id number] Relation to Subscriber:Self Name:Jose Hamlin Subscriber ID:[id number] Payer ID:[id number] Group ID:Not on file Type:Medicare Address: [employer] [address] [place] [id number] [place] [address] MEDICARE REPLACEMENT MEDICARE PART A & B [facility] MEDICARE REPLACEMENT MEDICARE PART A & B Member Subscriber Plan / Payer (Ef fective 2020-Present) Name:Jose Hamlin Member ID:[id number] Relation to Subscriber:Self Name:Jose Hamlin Subscriber ID:[id number] Payer ID:[id number] Group ID:Not on file Type:Medicare Address: [employer] [address] [place] [id number] [place] [address] MEDICARE REPLACEMENT MEDICARE PART A & B [facility] MEDICARE REPLACEMENT Care Teams Senior Media Director Relationship Specialty Start Date End Date Aundrea Mitchell MD [address] [place] [phone] PCP - General Family Medicine 07/16/24 Ellen Richardson MD [email or web address] Insurance Assigned Provider Family Medicine 10/03/19 Additional Source Comments The information contained in this document represents components of the legal health record. It is not the complete legal health record.[facility]
--- OUTSIDE RECORDS SUMMARY | 2025-09-12 15:19 | XMS_ITS | Clinical Summary ---
Author Organization [employer] Address [address] [place] [address] [address] [place] [address] Care Team Providers Care Early Childhood Associate Teacher Name Role Phone Argenis Mitchell MD Primary Care Provider Bird Fields PharmD Unavailable [phone] Allergies No known active allergies Medications Alcohol Swabs (Alcohol Prep) pads Active glucose blood (OneTouch Verio) test strip insert 1 by into machine route 3 times every day 08/12/20 22 Active Lancets (onetouch ultrasoft) lancets 1 each by Other route if needed. Use as instructed Active PARoxetine (Paxil) 20 MG tabletIndication s:Insomnia [...] BEDTIME 100 tablet 1 03/12/20 25 Active metFORMIN XR (Glucophage-XR) 500 MG 24 hr tabletIndication s:Type 2 diabetes mellitus without complication, without long-term current use of insulin (HCC) TAKE 2 TABLETS BY MOUTH TWICE A DAY WITH MEAL 360 tablet 3 08/20/20 25 Active amLODIPine (Norvasc) 10 MG tablet TAKE 1 TABLET (10 MG) BY MOUTH ONCE PER DAY. 90 tablet 3 08/23/20 25 Active metFORMIN XR (Glucophage-XR) 500 MG 24 hr tabletIndication s:Type 2 diabetes mellitus without complication, without long-term current use of insulin (HCC) Take 2 tablets by mouth twice a day with meal 360 tablet 3 05/28/20 24 025 Discontinued amLODIPine (Norvasc) 10 MG tablet Take 1 tablet (10 mg) by mouth Once per day. 90 tablet 3 09/12/20 24 025 Discontinued Active Problems Problem Noted Date Diagnosed Date Basal cell carcinoma (BCC) of skin of neck 09/12 Assessment & Plan (06/06/2025 9:53 PM EDT): - patient was evaluated by foster parent on 08/09/24. Shaved biopsy done which revealed basal cell carcinoma - s/p excisional biopsy by plastic surgeon on 09/06/24 Assessment & Plan (12/24/2024 12:36 PM EST): - patient was evaluated by foster parent on 08/09/24. Shaved biopsy done which revealed basal cell carcinoma - s/p excisional biopsy by plastic surgeon on 09/06/24 Assessment & Plan (09/12/2024 10:05 AM EDT): - patient was evaluated by foster parent on 08/09/24. Shaved biopsy done which revealed basal cell carcinoma - s/p excisional biopsy by plastic surgeon on 09/06/24 Melanoma of scalp (CMS/HCC) 09/12/2024 Assessment & Plan (06/06/2025 9:53 PM EDT): - patient was evaluated by foster parent on 08/09/24. Shaved biopsy done which revealed melanoma - s/p excisional biopsy by plastic surgeon on 09/06/24 - s/p skin graft on 10/18/24 Assessment & Plan (12/24/2024 12:35 PM EST): - patient was evaluated by foster parent on 08/09/24. Shaved biopsy done which revealed melanoma - s/p excisional biopsy by plastic surgeon on 09/06/24 - s/p skin graft on 10/18/24 Assessment & Plan (09/12/2024 10:05 AM EDT): - patient was evaluated by foster parent on 08/09/24. Shaved biopsy done which revealed melanoma - s/p excisional biopsy by plastic surgeon on 09/06/24 Obesity 11/25/2023 Assessment & Plan (09/12/2024 1:42 PM EDT): - work on lifestyle modification - evaluate for SHARAMINE Assessment & Plan (11/25/2023 9:06 AM EST): [...] 9:36 AM EST): - previously evaluated [place] [facility] in 2019 At increased risk [...] to urologist Insomnia 12/12/2022 Assessment & Plan (06/17/2025 4:47 PM EDT): - consider CBT for ?anxiety - continue melatonin 6 mg at bedtime 2-3 hours prior to desired bedtime - His sleep medicine clinic provider mentioned of parasomnia, possible restless leg syndrome/neuropathy Assessment & Plan (11/25/2023 9:16 AM EST): - consider CBT for ?anxiety - continue melatonin 3 mg at bedtime 2-3 hours prior to desired bedtime - evaluate for nocturia and optimize treatment for it - evaluate for SHARMAINE Assessment & Plan (04/07/2023 5:25 AM EDT): [...] Hordeolum externum of left lower eyelid 12/12/19 23 Assessment & Plan (12/24/2024 12:35 PM EST): - recommended to get evaluated by aerospace quality engineer and foster parent at every visit Assessment & Plan (11/24/2023 [...] (obstructive sleep apnea) 11/02/2022 Assessment & Plan (06/17/2025 4:45 PM EDT): - following with [facility] Sleep medicine clinic, last office visit in February 2025 - sleep study on 03/22/24, severe degeree of SHARMAINE. BABAR was 52/hr and torres O2 sat 83%. Recommended CPAP titration study. - full in-lab sleep study done on 07/09/24 and CPAP 12 cm H2O recommended. Patient has not received CPAP. - Prescribed melatonin 6 mg around 5 PM - Continue paroxetine Assessment & Plan (12/24/2024 12:28 PM EST): - following with [facility] Sleep medicine clinic, last office visit in [...] (09/12/2024 10:03 AM EDT): - following with [facility] Sleep medicine clinic, last office visit in January 2024 - sleep study on 03/22/24, severe degeree of SHARMAINE. BABAR was 52/hr and torres O2 sat 83%. Recommended CPAP titration study. - full in-lab sleep study done on 07/09/24 and CPAP 12 cm H2O recommended. Patient has not received CPAP. Will check status. Assessment & Plan (05/30/2024 2:20 PM EDT): - following with [facility] Sleep medicine clinic, last office visit in [...] sleep study Dyslipidemia 11/02/2022 Assessment & Plan (06/17/2025 4:41 PM EDT): - last lipid profile 03/07/24, low HDL and low LDL. - continue atorvastatin 10 mg at bedtime; consider increasing its dose and/or combining with amlodipine - continue working on lifestyle modifications Assessment & Plan (12/24/2024 12:36 PM EST): [...] nocturia Essential hypertension 11/02/2022 Assessment & Plan (06/17/2025 4:38 PM EDT): - Goal BP < 130/80 per ACC/AHA guideline (Treatment threshold >= 130/80 ) - BP at goal today - continue amlodipine 10 mg daily - continue lisinopril 40 mg - continue chlorthalidone 12.5 mg daily - continue working on lifestyle modifications - Follow up in 3-6 mo, sooner if any problem arises Assessment & Plan (12/24/2024 12:33 PM EST): [...] 2 diabetes mellitus 11/02/2022 Assessment & Plan (06/17/2025 4:43 PM EDT): - Jun 2022 - HbA1C 6.4% 06/06/25, improved 7.0% on 12/24/24 - continue Metformin ER 1000 mg BID, - continue working on lifestyle modifications - foot exam 12/24/24, low risk - microalbumin test 03/07/24 UACR 65, mild microalbuminuria - lipid profile 03/07/24 - last eye exam by Dr. Jara, [facility] Eye care. February 2024. No diabetic retinopathy. Eye and Lasik. Assessment & Plan (12/24/2024 12:34 PM EST): - Jun 2022 - HbA1C 7.0% on 12/24/24, slightly increased from 6.8% in Aug 2024 - Increase Metformin ER 500 mg x2 tablets BID, continue working on lifestyle modifications - foot exam done today 12/24/24, low risk - microalbumin test 03/07/24 UACR 10, no microalbuminuria - lipid profile 03/07/24 - last eye exam by Dr. Jara, [facility] Eye care. February 2024. No diabetic [...] - last eye exam by Dr. Jara, [facility] Eye care. February 2024. No diabetic [...] - last eye exam by Dr. Jara, [facility] Eye care. February 2024. No diabetic [...] ago. Upcoming appointment in Dec 2023 with [facility] Eye care. Assessment & Plan (11/25/2023 9:25 AM EST): - Jun 2022 - HbA1C 8.8% on 11/24/23, [...] ago. Upcoming appointment in Dec 2023 with [facility] Eye care. Assessment & Plan (04/06/2023 11:05 AM EDT): - Jun 2022 - HbA1C 6.5% on 04/06/23, [...] than a year ago. Pt referred to [facility] eyecare, but has not received appt [...] than a year ago. [facility] has not received [facility]t yet. Will check its status Encounters Date Type Department Care Team Description 09/12/2025 11:30 AM EDT Office Visit [address] [address] Argenis Mitchell MD Essential hypertension (Primary Dx); Dyslipidemia; Melanoma of scalp (CMS/HCC) (HCC); Basal cell carcinoma (BCC) of skin of neck; SHARMAINE (obstructive sleep apnea); Type 2 diabetes mellitus with hyperglycemia, without long-term current use of insulin (HCC); Encounter for immunization 09/11/2025 Travel 08/29/2025 Telephone [facility] [address] [place] [address] [phone] Сергей Segura DDS waitlist 08/23/[address] [address] Argneis Mitchell MD 08/21/2025 Travel 08/19/[address] [phone] Argenis Mitchell MD appt question 08/19/2025 Refill [facility] [address] [place] [address] Argenis Mitchell MD Type 2 diabetes mellitus without complication, without long-term current use of insulin ([facility]) 07/11/2025 Telephone [facility] [address] [place] [address] LavonClara law, OD 06/27/2025 11:00 AM EDT Office Visit [facility] [address] [place] [address] LavonClara law, OD Type 2 diabetes mellitus without ophthalmic manifestations ([facility]) (Primary Dx); Combined form of age-related cataract, both eyes; Hyperopia of both eyes with astigmatism and presbyopia; Anatomical narrow angle of both eyes; Corneal opacity of left eye 06/27/2025 Travel 06/26/2025 Travel from Last 3 Months Immunizations Immunization Administration Dates Next Due INFLUENZA VACCINE QUADRIVALE NT RECOMBINANT PRESERVATIVE FREE RIV4 09/22/2020 Influenza High-dose Quadriva lent Preservative Free 09/09/2022 Influenza injectable quadriv alent preservative free 11/24/2023,08/27/2019,08/21/2018,08/24,09/01/2016,09/16/2014,12/12/2013 Influenza, High Dose Seasona l, Preservative Free 08/21/2025 Influenza, IIV3, injectable 10/25/2011 Influenza, seasonal, injecta ble, preservative free 09/12/2024,08/20/2013 Influenza, trivalent, adjuvanted 10/25/2011 Pfizer Covid-19 Vaccine 12+ 09/12/2025,1 ,11/24/2023,04/23,04/01/2021 Pfizer Covid-19 Vaccine 12+ Bivalent 09/09/2022 Pneumococcal Conjugate PCV 20 11/24/2023 Pneumococcal Polysaccharide PPSV23 05/07/2021 RSV Bivalent 10/10/2024 TD (adult), 2 Lf tetanus tox oid, preservative free, adsorbed 01/06/2005 Td (adult), unspecified 01/06/2005 Tdap 06/06/2025,04/03/2015 Zoster, Recombinant 11/09/2019,11/05/2019,2018 Social History Tobacco Use [...] Mass Index 32.39 09/12/2025 11:31 AM EDT Plan of Treatment Upcoming Encounters Date Type Department Care Team (Late st Contact Info) Description 11/18/2025 10:00 AM EST Telemedicine [facility] [address] [place] [address] Bird Fields, PharmD [address] [place] [address] Health Maintenance Due Date Last Done Comments CT Colonography 1955 FIT 1955 Sigmoidoscopy 1955 Derm Melanoma Skin Check 04/07/1956 Hepatitis C Screening 1973 FOBT 06/25/2025 06/25/2024, 06/25/2024 Diabetes: Foot Exam 12/24/2025 12/24/2024, 12/24/2024, 12/24/2024, Additional history exists Diabetes: Hemoglobin A1C 03/13/2026 025, 09/12/2025, 06/06/2025, Additional history exists SDOH Screening 06/06/2026 06/06/2025 Alcohol/Substance Use Screening 09/12/2026 09/12/2025 Depression Screening 09/12/2026 09/12/2025, 09/12/20 25 Diabetes: Urine Protein Screening 09/12/2026 09/12/2025, 03/07/2024, 04/06/2023, Additional history exists Lipid Panel 09/12/2026 09/12/2025, 08/28, 03/07/2024, Additional history exists Tobacco Screening 09/12/2026 09/12/2025 FIT DNA/Cologuard 06/25/2027 06/25/2024, 06/25/2024 Eye Exam 06/27/2027 06/27/2025, 07/11/2024, 06/27/2025, Additional history exists Colonoscopy 07/16/2027 07/16/2024, 09/23/2021 Colorectal Cancer Screening 07/16/2027 DTaP/Tdap/Td Vaccines (3 - Td or Tdap) 06/06/2035 06/06/2025, 04/03/2015, 01/06/2005, Additional history exists Zoster Vaccines Completed 11/09/2019, 07/2019, 08/27/2019 Pneumococcal Vaccine: 50+ Years Completed 11/24/2023, 05/07/2021 RSV Patients and Patients Aged 60 years or older Completed 10/10/2024 Influenza Vaccine Completed 08/21/2025, , 11/24/2023, Additional history exists COVID-19 Vaccine Completed 09/12/2025, , 11/24/2023, Additional history exists HIB Vaccines Aged Out No longer eligi [...] patient's age to complete this topic Meningococcal B Vaccine Aged Out No l onger eligible based on patient's age to complete [...] Procedure Name Priority Date/Time Associated Diagnosis Comments VITAMIN B12/FOLATE, SERUM PANEL Routine 09/12/2025 12:18 PM EDT Type 2 diabetes mellitus with hyperglycemia, without long-term current use of insulin (HCC) TSH W/REFLEX TO FT4 Routine 09/12/2025 1 2:18 PM EDT Type 2 diabetes mellitus with hyperglycemia, without long-term current use of insulin (HCC) VITAMIN D,25-OH,TOTAL,IA Routine 09/12/2025 12:18 PM EDT Type 2 diabetes mellitus with hyperglycemia, without long-term current use of insulin (HCC) FERRITIN Routine 09/12/2025 12:18 PM EDT Type 2 diabetes mellitus with hyperglycemia, without long-term current use of insulin (HCC) HEMOGLOBIN A1C Routine 09/12/2025 12:18 PM EDT Type 2 diabetes mellitus with hyperglycemia, without long-term current use of insulin (HCC) LIPID PANEL, STANDARD Routine 09/12/2025 12:18 PM EDT Type 2 diabetes mellitus with hyperglycemia, without long-term current use of insulin ([facility]) HEPATIC FUNCTION PANEL Routine 12:18 PM EDT Type 2 diabetes mellitus with hyperglycemia, without long-term current use of insulin (HCC) COMPREHENSIVE METABOLIC PANEL Routine 09/12/2025 12:18 PM EDT Type 2 diabetes mellitus with hyperglycemia, without long-term current use of insulin (HCC) HOLD RED TOP Routine 09/12/2025 12:18 PM EDT Type 2 diabetes mellitus with hyperglycemia, without long-term current use of insulin (HCC) CBC Routine 09/12/2025 12:18 PM EDT Type 2 diabetes mellitus with hyperglycemia, without long-term current use of insulin (HCC) LIPID PANEL WITH REFLEX TO DIRECT LDL Routine 09/12/2025 12:18 PM EDT Dyslipidemia ALBUMIN, RANDOM URINE W/CREATININE Routine 09/12/2025 12:16 PM EDT Essential hypertension Type 2 diabetes mellitus with hyperglycemia, without long-term current use of insulin (HCC) POCT GLUCOSE Routine 09/12/2025 11:32 AM EDT Type 2 diabetes mellitus with hyperglycemia, without long-term current use of insulin (HCC) POCT GLYCOSYLATED HEMOGLOBIN (HGB A1C) Routine 09/12/2025 11:32 AM EDT Type 2 diabetes mellitus with hyperglycemia, without long-term current use of insulin (HCC) HM COLONOSCOPY Routine 07/16/2024 LAB COLOGUARD COLON CANCER SCREEN Routine 06/25/2024 12:30 PM EDT Colon cancer screening HM FIT DNA/COLOGUARD CANCER SCREENING Routine 06/25/2024 from Last 3 Months or Most Recently Relevant to Health Maintenance Results * Hold Red (09/12/2025 12:18 PM EDT) Hold Red See Note [facility] Comment:Specimen held untest ed for 24 hours; Call to requestChemistry testing. 09/12/2025 12:1 8 PM EDT 09/12/2025 2:04 PM EDT us Argenis Mitchell MD LAB BLOOD ORDERABLES Final Resul t [facility] [address] [place] [phone] * Vitamin D, 25-Hydroxy, Total, Immunoassay (09/12/2025 12:18 PM EDT) Vitamin D 25-OH Total 55.3 >30 ng/mL [facility] Comment: Health Based Reference Values*< 20 ng/mL Nbdoangue33-00 ng/mL Insufficient> 30 ng/mL Sufficient*Isidro CANO. N Engl J Med. 2007;357:266-280There is no well-established upper level of normal vitamin Dlevels. Some laboratories use 50 ng/mL as an upper limit ofnormal. However, toxicity is patient-dependent and may occurat any level. Careful correlation with the patient'spresentation is necessary and, if there is concern forvitamin D toxicity, treatment should be consideredirrespective of the serum level.Care must be taken in interpreting Vitamin D results fromdifferent laboratories and methodologies. Published datademonstrated that results from patients undergoinghemodialysis may show a negative bias when tested withvarious automated 25-OH vitamin D assays when compared toLC-MS/MS.When testing samples from patients whose predominant form ofVitamin D is Vitamin D2, such as patients receiving VitaminD2 supplementation, results that are subtherapeutic shouldbe confirmed with another method such as LC-MS/MS. 09/12/2025 12:1 8 PM EDT 09/12/2025 1:31 PM EDT Generic External Data Provider LAB BLOOD ORDERAB LES Final Result Performing Organization Address [facility] Co de Phone Number [facility] [address] [place] [phone] * Vitamin B12 (Cobalamin) and Folate Panel, Serum (09/12/2025 12:18 PM EDT) Vitamin B12 217 200 - 900 pg/mL [facility] Comment:NORMAL 200-900 PG/ML INDETERMINATE 160-199 PG/ML DEFICIENT < 160 PG/ML Folate 10.3 > or = 4.0 ng/mL [facility] Comment:Reference Values:> o r = 4.0 ng/mL< 4.0 ng/mL suggests folate deficiency Methotrexate, aminopterin and folinic acid(leucovorin) are chemotherapeutic agents whose molecularstructures are similar to folate; therefore, the Architectfolate assay cannot be used for patients using these drugs. 09/12/2025 12:1 8 PM EDT 09/12/2025 1:31 PM EDT Generic External Data Provider LAB BLOOD ORDERAB LES Final Result Performing Organization Address [facility] de Phone Number [facility] [address] [place] [phone] * TSH with Reflex to Free T4 (09/12/2025 12:18 PM EDT) TSH reflex Free T4 1.65 0.32 - 4.0 uIU/mL [facility] 09/12/2025 12:1 8 PM EDT 09/12/2025 1:31 PM EDT us Generic External Data Provider LAB BLOOD ORDERAB LES Final Result Performing Organization Address [facility] Co de Phone Number [facility] [address] [place] [phone] * (ABNORMAL) Lipid Panel with Reflex to Direct LDL (09/12/2025 12:18 PM EDT) Triglycerides 201(H) <150 mg/dL [facility] Comment:Desirable Triglyceri de: less than 150 mg/dLBorderline High Triglyceride 150-199 mg/dLHigh Triglyceride: 200-499 mg/dLVery High Triglyceride: greater than or equal to 5OO mg/dL Cholesterol 124 <200 mg/dL [facility] Comment:Desirable Cholestero l: less than 200 mg/dLBorderline High Cholesterol: 200-239 mg/dLHigh Cholesterol: greater than 239 mg/dL LDL Cholesterol Calculated 58 <100 mg/dL [facility] Comment:Desirable LDL: less than 100 mg/dLNear Optimal/Above Optimal LDL: 110- 129 mg/dLBorderline High LDL: 130-159 mg/dLHigh LDL: 160-189 mg/dLVery High LDL: greater than or equal to 190 mg/dL HDL Cholesterol 26(L) >40 mg/dL [facility] Comment:Desirable HDL: great er than 40 mg/dL Note: This HDL assay may give artificially low results in patients with liver disease. Blood 09/12/2025 12:1 8 PM EDT 09/12/2025 1:31 PM EDT us Argenis Mitchell MD LAB BLOOD ORDERABLES Final Resul t Performing Organization Address City/[facility]/ZIP Co de Phone Number [facility] [address] [place] [phone] * (ABNORMAL) CBC (09/12/2025 12:18 PM EDT) White Blood Count 7.5 4.8 - 10.8 X10*3/uL [facility] Red Blood Count 4.69 4.60 - 5.80 X10*6/uL [facility] Hemoglobin 14.4 14.0 - 18.0 g/dl [facility] Hematocrit 41.0(L) 42.0 - 52.0 % [facility] Mean Corpuscular Volume 87.4 80.0 - 98.0 fL [facility] Mean Corpuscular Hemoglobin 30.7 27.0 - 33.0 pg [facility] Mean Corpuscular HGB Conc 35.1 31.0 - 36.0 g/dl [facility] Red Cell Distribution Width 12.7 11.0 - 16.0 % [facility] Platelet Count 216 160 - 400 X10*3/uL [facility] Mean Platelet Volume 10.7 9.4 - 12.4 fL [facility] NRBC Pct Auto 0.0 0.0 - 0.2 /100WBC [facility] NRBC Abs Auto 0.000 0.0 - 0.012 X10*3/uL [facility] 09/12/2025 12:1 8 PM EDT 09/12/2025 1:11 PM EDT us Generic External Data Provider LAB BLOOD ORDERAB LES Final Result [facility] [address] [place] [phone] * (ABNORMAL) Hemoglobin A1c (09/12/2025 12:18 PM EDT) Hemoglobin A1c 6.3(H) <6.0 % [facility] Comment:Hemoglobin A1C Refer ence Range Adults: 4.8 - 6.0 % Non diabetic: < 6.0 % Goal: < 7.0 %Additional Action Suggested: > 8.0 %Note: Hemoglobin A1c results are invalid for patients with abnormal amounts of HbF. Blood transfusions may impact the HbA1c concentration in the patient sample. Estimated Average Glucose 134 mg/dL [facility] Comment:eAG = Estimated ave rage glucose which is %A1C expressed asaverage glucose, using the formula of the U7O-UxvybqwJxnqlof Glucose study (ADAG), Diabetes Care, Vol.31,#8,2007 09/12/2025 12:1 8 PM EDT 09/12/2025 1:11 PM EDT us Generic External Data Provider LAB BLOOD ORDERAB LES Final Result Performing Organization Address [facility]/ZIP Co de Phone Number [facility] [address] [place] [phone] * Ferritin (09/12/2025 12:18 PM EDT) Pathologist [facility] Ferritin 132 20 - 250 ng/mL [facility] 09/12/2025 12:1 8 PM EDT 09/12/2025 1:31 PM EDT us Generic External Data Provider LAB BLOOD ORDERAB LES Final Result Performing Organization Address [facility] Co de Phone Number [facility] [address] [place] [phone] * Hepatic Function Panel (09/12/2025 12:18 PM EDT) Pathologist [facility] Bilirubin, Direct 0.4 0.0 - 0.5 mg/dL [facility] 09/12/2025 12:1 8 PM EDT 09/12/2025 1:31 PM EDT us Argenis Mitchell MD LAB BLOOD ORDERABLES Final Resul t Performing Organization Address [facility] Co de Phone Number [facility] [address] [place] [phone] * (ABNORMAL) Lipid Panel, Standard (09/12/2025 12:18 PM EDT) Triglycerides 201(H) <150 mg/dL [facility] Comment:Desirable Triglyceri de: less than 150 mg/dLBorderline High Triglyceride 150-199 mg/dLHigh Triglyceride: 200-499 mg/dLVery High Triglyceride: greater than or equal to 5OO mg/dL Cholesterol 124 <200 mg/dL [facility] Comment:Desirable Cholestero l: less than 200 mg/dLBorderline High Cholesterol: 200-239 mg/dLHigh Cholesterol: greater than 239 mg/dL LDL Cholesterol Calculated 58 <100 mg/dL [facility] Comment:Desirable LDL: less than 100 mg/dLNear Optimal/Above Optimal LDL: 110- 129 mg/dLBorderline High LDL: 130-159 mg/dLHigh LDL: 160-189 mg/dLVery High LDL: greater than or equal to 190 mg/dL HDL Cholesterol 26(L) >40 mg/dL [facility] Comment:Desirable HDL: great er than 40 mg/dL Note: This HDL assay may give artificially low results in patients with liver disease. 09/12/2025 12:1 8 PM EDT 09/12/2025 1:31 PM EDT us Argenis Mitchell MD LAB BLOOD ORDERABLES Final Resul t [facility] [address] [place] [phone] * (ABNORMAL) Comprehensive Metabolic Panel (09/12/2025 12:18 PM EDT) Sodium 146(H) 135 - 145 mmol/L [facility] Potassium 3.9 3.3 - 5.1 mmol/L [facility] Chloride 102 96 - 108 mmol/L [facility] Carbon Dioxide 33(H) 22 - 29 mmol/L [facility] Anion Gap 15 12 - 20 [facility] Urea Nitrogen (BUN) 22(H) 9 - 16 mg/dL [facility] Creatinine, Serum 1.19 0.5 - 1.4 mg/dL [facility] Estimated Glomerular Filt Rate >60 [facility] Comment:Chronic Kidney Disea se: Estimated GFR < 60 mL/min/1.33e1Oeskhc Kidney Disease: Estimated GFR < 15 mL/min/1.73m2 Glucose 180(H) 60 - 115 mg/dL [facility] Calcium 10.1 8.4 - 10.2 mg/dL [facility] Bilirubin, Total 1.3(H) 0.0 - 1.0 mg/dL [facility] Aspartate Amino Transferase 29 5 - 37 U/L [facility] Alanine Aminotransferase 50(H) 0 - 40 U/L [facility] Total Protein 7.6 6.5 - 8.0 g/dL [facility] Albumin Level 5.0 3.5 - 5.0 g/dL [facility] Alkaline Phosphatase 58 39 - 117 U/L [facility] 09/12/2025 12:1 8 PM EDT 09/12/2025 1:31 PM EDT us Generic External Data Provider LAB BLOOD ORDERAB LES Final Result Performing Organization Address City/[facility]/ZIP Co de Phone Number [facility] [address] [place] [address] [phone] * (ABNORMAL) Albumin, Random Urine W/Creatinine (09/12/2025 12:16 PM EDT) Creatinine, Urine 157.66 mg/dL [facility] Microalbumin Urine 74.0 mg/L [facility] Microalbum Creatinine Ratio Ur 46.9(H) <30 ug/mg cr [facility] Comment:Albumin/Creatinine R atio Reference Ranges: Normal: < 30 ug/mg creatinine Microalbuminuria: 30 - 300 ug/mg creatinineClinical Albuminuria: > 300 ug/mg creatinine Urine 09/12/2025 12:1 6 PM EDT 09/12/2025 1:02 PM EDT us Argenis Mitchell MD LAB URINE ORDERABLES Final Resul t [facility] [address] [place] [phone] * (ABNORMAL) POCT glycosylated hemoglobin (Hgb A1c) (09/12/2025 11:32 AM EDT) Pathologist [facility] [place] Hemoglobin A1C 6.6(A) 4.0 - 5.7 % QC Media Lot # [id number] Lot# Expiration Date Blood Capillary blood specimen / Unknown 09/12/2025 11:32 AM EDT Argenis Mitchell MD POINT OF CARE TEST ENTER/EDIT OR DERABLES Final Result * (ABNORMAL) POCT glucose manually resulted (09/12/2025 11:32 AM EDT) Pathologist [facility] [place] Glucose Blood, POC 242(A) 60 - 200 mg/dL QC Media Lot # [id number] Lot# Expiration Date Blood Capillary blood specimen / Unknown 09/12/2025 11:32 AM EDT us Argenis Mitchell MD POINT OF CARE TEST ENTER/EDIT OR DERABLES Final Result * Hm Colonoscopy (07/16/2024) Pathologist [facility] [place] Colonoscopy Normal Normal Alpesh Medina MD HEALTH MAINTENANCE Final Result * Cologuard?? colon cancer screening (06/25/2024 12:30 PM EDT) Cologuard Result Negative Negative 06/29/20 9:55 AM EDT [employer] (CLIA #:[id number]) Comment: NEGATIVE TEST RESULT. A negative Cologuard result indicates a low likelihood that a colorectal cancer (CRC) or advanced adenoma (adenomatous polyps with more advanced pre-malignant features) is present. The chance that a person with a negative Cologuard test has a colorectal cancer is less than 1 in 1500 (negative predictive value >99.9%) or has an advanced adenoma is less than 5.3% (negative predictive value 94.7%). These data are based on a prospective cross-sectional study of 10,000 individuals at average risk for colorectal cancer who were screened with both Cologuard and colonoscopy. (Clover Haji, N Engl J Med 2014;370(14):2310-4438) The normal value (reference range) for this assay is negative. COLOGUARD RE-SCREENING RECOMMENDATION: Periodic colorectal cancer screening is an important part of preventive healthcare for asymptomatic individuals at average risk for colorectal cancer. Following a negative Cologuard result, the [place] Cancer Society and U.S. Multi-Society Task Force screening guidelines recommend a Cologuard re-screening interval of 3 years. References: [place] [employer] Guideline for Colorectal Cancer Screening: https://www.cancer.org/cancer/jgbof-dzhnyo-ytjrmo/tuwwyudjq-ovfffeefb-bbgvksx/ac s-rec ommendations.html.; Mohsen DK, Angelica MCDONALD, Radha FarahK, Colorectal Cancer Screening: Recommendations for Physicians and Patients from the U.S. Multi-Society Task Force on Colorectal Cancer Screening , Am J Gastroenterology 2017; 112:1005-1706. TEST DESCRIPTION: Composite algorithmic analysis of stool DNA-biomarkers with hemoglobin immunoassay. Quantitative values of individual biomarkers are not [...] (Clover Rogers al, N Engl J Med 2014;370(14):6733-5581.) Cologuard may produce a false negative or false positive result (no colorectal cancer or precancerous polyp present at colonoscopy follow up). A negative Cologuard test result does not guarantee the absence of CRC or advanced adenoma (pre-cancer). The current Cologuard screening interval is every 3 years. ([place] [employer] Society and U.S. Multi-Society Task Force). Cologuard performance data in a 10,000 patient pivotal study using colonoscopy as the reference method can be accessed at the following location: www.LegalReach.Uptake/results. Additional description of the Cologuard test process, warnings and precautions can be found at www.Meme Appsoguard.Uptake. Stool specimen (specimen) 06/25/2024 12:30 PM EDT 06/26/2024 10:59 AM EDT Argenis Mitchell MD LAB MOLECULAR DIAGNOSTICS ORDERA BLE Final Result [employer] (CLIA #:[id number]) [place] [address] [place] [address], * FIT DNA/Cologuard Cancer Screening (06/25/2024) Cologuard Cancer Screen Negative Stool 06/25/2024 Historical Provider HEALTH MAINTENANCE Final Result from Last 3 Months or Most Recently Relevant to Health Maintenance Insurance [employer] MEDICARE REPLACEMENT Care Teams Early Childhood Associate Teacher Relationship Specialty Start Date End Date Argenis Mitchell MD [address] [place] [address] PCP - General Family Medicine 09/10/22 Bird Fields PharmD [address] [place] [address] Pharmacist Internal Medicine 08/27/24
--- OUTSIDE RECORDS SUMMARY | 2025-09-12 15:19 | XMS_ITS | Encounter Summary ---
Author Organization [employer] Address [address] [place] [address] [address] [place] [address] Care Team Providers Care Gluing Machine Adjuster Name Role Phone Argenis Mitchell MD Primary Care Provider [phone] Bird Fields PharmD Unavailable [phone] Reason for Referral * Consultation (Routine) - Closed Specialty Diagnoses / Procedures Referred By Contac t Referred To Contact Pharmacy Diagnoses Type 2 diabetes mellitus without complication, without long-term current use of insulin (HCC) Essential hypertension Argenis Mitchell MD [address] [place] [address] Phone: tel: fax: Referral ID Status Reason Start Date Expiration Date V isits Requested Visits Authorized [id number] Closed Consult and Treat 03/13/2024 03/13/2025 1 1 Scheduling Instructions Worsening glycemic control and borderline BP. Patient was on hydrochlorothiazide, but halved its dose due to low potassium. Encounter Details Date Type Department Care Team (Late st Contact Info) Description 03/13/2024 Orders Only [facility] MED[facility] [address] [place], [place] [phone] Argenis Mitchell MD [address] [place], [place] [phone] Type 2 diabetes mellitus without complication, without [...] Info) Description 11/18/2025 10:00 AM EST Telemedicine [facility] [address] [place] [address] Bird Fields, PharmD [address] [place] [address] Scheduled Referrals Name Type Priority Associated Diagnoses Orde r Schedule Referral to Pharmacy CDTM Outpatient Referral Routine Type 2 diabetes mellitus without complication, without long-term current use of insulin ([facility]/HCC) Essential hypertension Ordered: 03/13/2024 documented as of this encounter Visit Diagnoses Diagnosis Type 2 diabetes mellitus without complication, without long-term current use of insulin ([facility])- Primary Essential hypertension Unspecified essential hypertension documented in this encounter Care Teams Gluing Machine Adjuster Relationship Specialty Start Date End Date Argenis Mitchell MD [address] [place], [place] [phone] PCP - General Family Medicine 09/10/22 Bird Fields, Darlin [address] [place] [address] Pharmacist Internal Medicine 08/27/24 documented as of this encounter
--- OUTSIDE RECORDS SUMMARY | 2025-09-12 15:19 | XMS_ITS | Encounter Summary ---
Author Organization [employer] Address [address] [place] [address] 7 [place] [address] Care Team Providers Care Cd Reactor Operator Name Role Phone Argenis Mitchell MD Primary Care Provider [phone] Bird Fields PharmD Unavailable [phone] Reason for Referral * Consultation (Routine) - Authorized Specialty Diagnoses / Procedures Referred By Contac t Referred To Contact Pharmacy Diagnoses Type 2 diabetes mellitus with hyperglycemia, without long-term current use of insulin (HCC) Essential hypertension Argenis Mitchell MD [address] [place] [address] Phone: tel: fax: Referral ID Status Reason Start Date Expiration Date Visits Requested Visits Authorized [id number] Authorized Consult and Treat 10/09/2024 10/09/2025 6 6 Encounter Details Date Type Department Care Team (Late st Contact Info) Description 10/09/2024 Orders Only [facility] [address] [place], [place] [phone] Argenis Mitchell MD [address] [place], [place] [phone] Type 2 diabetes mellitus with hyperglycemia, without [...] Info) Description 11/18/2025 10:00 AM EST Telemedicine [facility] [address] [place] [address] Bird Fields, PharmD [address] [place] [address] Scheduled Referrals Name Type Priority Associated Diagnoses Orde r Schedule Referral to Pharmacy CDTM Outpatient Referral Routine Type 2 diabetes mellitus with hyperglycemia, without long-term current use of insulin ([facility]) Essential hypertension Ordered: 10/09/2024 documented as of this encounter Procedures Procedure Name Priority Date/Time Associated Diagnosis Comments HOLD RED TOP Routine 09/12/2025 12:18 PM EDT Type 2 diabetes mellitus with hyperglycemia, without long-term current use of insulin (HCC) VITAMIN D,25-OH,TOTAL,IA Routine 09/12/2025 12:18 PM EDT Type 2 diabetes mellitus with hyperglycemia, without long-term current use of insulin (HCC) VITAMIN B12/FOLATE, SERUM PANEL Routine 09/12/2025 12:18 [...] without long-term current use of insulin (HCC) HEPATIC FUNCTION PANEL Routine 12:18 PM EDT [...] (HCC) documented in this encounter Results * Vitamin B12 (Cobalamin) and Folate Panel, Serum (09/12/2025 12:18 PM EDT) Pathologist [facility] Vitamin B12 217 200 - 900 pg/mL [facility] Comment:NORMAL 200-900 PG/ML INDETERMINATE 160-199 PG/ML DEFICIENT < 160 PG/ML Folate 10.3 > or = 4.0 ng/mL [facility] Comment:Reference Values:> o r = 4.0 ng/mL< 4.0 ng/mL suggests folate deficiency Methotrexate, aminopterin and folinic acid(leucovorin) are chemotherapeutic agents whose molecularstructures are similar to folate; therefore, the Architectfolate assay cannot be used for patients using these drugs. 09/12/2025 12:1 8 PM EDT 09/12/2025 1:31 PM EDT Generic External Data Provider LAB BLOOD ORDERAB LES Final Result Performing Organization Address [facility]/ZIP Co de Phone Number [facility] [address] [place] [phone] * TSH with Reflex to Free T4 (09/12/2025 12:18 PM EDT) Pathologist [facility] TSH reflex Free T4 1.65 0.32 - 4.0 uIU/mL [facility] 09/12/2025 12:1 8 PM EDT 09/12/2025 1:31 PM EDT Generic External Data Provider LAB BLOOD ORDERAB LES Final Result Performing Organization Address [facility]/ZIP Co de Phone Number [facility] [address] [place] [phone] * Vitamin D, 25-Hydroxy, Total, Immunoassay (09/12/2025 12:18 PM EDT) [facility] Vitamin D 25-OH Total 55.3 >30 ng/mL [facility] Comment: Health Based Reference Values*< 20 ng/mL Aifqolgtk59-71 ng/mL Insufficient> 30 ng/mL Sufficient*Isidro CANO. N [...] ORDERAB LES Final Result Performing Organization Address [facility] Co de Phone Number [facility] [address] [place] [phone] * Ferritin (09/12/2025 12:18 PM EDT) Ferritin 132 20 - 250 ng/mL [facility] 09/12/2025 12:1 8 PM EDT 09/12/2025 1:31 PM EDT Generic External Data Provider LAB BLOOD ORDERAB LES Final Result Performing Organization Address [facility] Co de Phone Number [facility] [address] [place] [phone] * (ABNORMAL) Hemoglobin A1c (09/12/2025 12:18 PM EDT) Hemoglobin A1c 6.3(H) <6.0 % [facility] Comment:Hemoglobin A1C Refer ence Range Adults: 4.8 - 6.0 % Non diabetic: < 6.0 % Goal: < 7.0 %Additional Action Suggested: > 8.0 %Note: Hemoglobin A1c results are invalid for patients with abnormal amounts of HbF. Blood transfusions may impact the HbA1c concentration in the patient sample. Estimated Average Glucose 134 mg/dL [facility] Comment:eAG = Estimated ave rage glucose which is %A1C expressed asaverage glucose, using the formula of the S6D-WqbtvgzGwvjdqj Glucose study (ADAG), Diabetes Care, Vol.31,#8,Jun. 2007 09/12/2025 12:1 8 PM EDT 09/12/2025 1:11 PM EDT us Generic External Data Provider LAB BLOOD ORDERAB LES Final Result [facility] [address] [place] [phone] * (ABNORMAL) Lipid Panel, Standard (09/12/2025 12:18 PM EDT) Triglycerides 201(H) <150 mg/dL [facility] Comment:Desirable Triglyceri de: less than 150 mg/dLBorderline High Triglyceride 150-199 mg/dLHigh Triglyceride: 200-499 mg/dLVery High Triglyceride: greater than or equal to 5OO mg/dL Cholesterol 124 <200 mg/dL [facility] Comment:Desirable Cholestero l: less than 200 mg/dLBorderline High Cholesterol: 200-239 mg/dLHigh Cholesterol: greater than 239 mg/dL LDL Cholesterol Calculated 58 <100 mg/dL [facility] Comment:Desirable LDL: less than 100 mg/dLNear Optimal/Above Optimal LDL: 110- 129 mg/dLBorderline High LDL: 130-159 mg/dLHigh LDL: 160-189 mg/dLVery High LDL: greater than or equal to 190 mg/dL HDL Cholesterol 26(L) >40 mg/dL [facility] Comment:Desirable HDL: great er than 40 mg/dL Note: This HDL assay may give artificially low results in patients with liver disease. 09/12/2025 12:1 8 PM EDT 09/12/2025 1:31 PM EDT Argenis Mitchell MD LAB BLOOD ORDERABLES Final Resul t Performing Organization Address City/[facility]/ZIP Co de Phone Number [facility] [address] [place] [phone] [phone] * Hepatic Function Panel (09/12/2025 12:18 PM EDT) Bilirubin, Direct 0.4 0.0 - 0.5 mg/dL [facility] 09/12/2025 12:1 8 PM EDT 09/12/2025 1:31 PM EDT Argenis Mitchell MD LAB BLOOD ORDERABLES Final Resul t Performing Organization Address [facility] Co de Phone Number [facility] [address] [place] [phone] [phone] * (ABNORMAL) Comprehensive Metabolic Panel (09/12/2025 12:18 PM EDT) Sodium 146(H) 135 - 145 mmol/L [facility] Potassium 3.9 3.3 - 5.1 mmol/L [facility] Chloride 102 96 - 108 mmol/L [facility] Carbon Dioxide 33(H) 22 - 29 mmol/L [facility] Anion Gap 15 12 - 20 [facility] Urea Nitrogen (BUN) 22(H) 9 - 16 mg/dL [facility] Creatinine, Serum 1.19 0.5 - 1.4 mg/dL [facility] Estimated Glomerular Filt Rate >60 [facility] Comment:Chronic Kidney Disea se: Estimated GFR < 60 mL/min/1.43s8Venlmh Kidney Disease: Estimated GFR < 15 mL/min/1.73m2 Glucose 180(H) 60 - 115 mg/dL [facility] Calcium 10.1 8.4 - 10.2 mg/dL [facility] Bilirubin, Total 1.3(H) 0.0 - 1.0 mg/dL [facility] Aspartate Amino Transferase 29 5 - 37 U/L [facility] Alanine Aminotransferase 50(H) 0 - 40 U/L [facility] Total Protein 7.6 6.5 - 8.0 g/dL [facility] Albumin Level 5.0 3.5 - 5.0 g/dL [facility] Alkaline Phosphatase 58 39 - 117 U/L [facility] 09/12/2025 12:1 8 PM EDT 09/12/2025 1:31 PM EDT us Generic External Data Provider LAB BLOOD ORDERAB LES Final Result Performing Organization Address [facility]/ZIP Co de Phone Number [facility] [address] [place] [phone] [phone] * Hold Red (09/12/2025 12:18 PM EDT) Hold Red See Note [facility] Comment:Specimen held untest ed for 24 hours; Call to requestChemistry testing. 09/12/2025 12:1 8 PM EDT 09/12/2025 2:04 PM EDT us Argenis Mitchell MD LAB BLOOD ORDERABLES Final Resul t Performing Organization Address [facility]/ZIP Co de Phone Number [facility] [address] [place] [address] [phone] * (ABNORMAL) CBC (09/12/2025 12:18 PM EDT) White Blood Count 7.5 4.8 - 10.8 X10*3/uL [facility] Red Blood Count 4.69 4.60 - 5.80 X10*6/uL [facility] Hemoglobin 14.4 14.0 - 18.0 g/dl [facility] Hematocrit 41.0(L) 42.0 - 52.0 % [facility] Mean Corpuscular Volume 87.4 80.0 - 98.0 fL [facility] Mean Corpuscular Hemoglobin 30.7 27.0 - 33.0 pg [facility] Mean Corpuscular HGB Conc 35.1 31.0 - 36.0 g/dl [facility] Red Cell Distribution Width 12.7 11.0 - 16.0 % [facility] Platelet Count 216 160 - 400 X10*3/uL [facility] Mean Platelet Volume 10.7 9.4 - 12.4 fL [facility] NRBC Pct Auto 0.0 0.0 - 0.2 /100WBC [facility] NRBC Abs Auto 0.000 0.0 - 0.012 X10*3/uL [facility] 09/12/2025 12:1 8 PM EDT 09/12/2025 1:11 PM EDT us Generic External Data Provider LAB BLOOD ORDERAB LES Final Result [facility] [address] [place] [phone] [phone] documented in this encounter Visit Diagnoses Diagnosis Type 2 diabetes mellitus with hyperglycemia, without long-term current use of insulin (HCC)- Primary Essential hypertension Unspecified essential hypertension documented in this encounter Additional Health Concerns Assessment Noted Time PHQ-9 Depression Total Score: 0 09/12/20 24 9:31 AM EDT documented as of this encounter Care Teams Cd Reactor Operator Relationship Specialty Start Date End Date Argenis Mitchell MD [address] [place] [address] PCP - General Family Medicine 09/10/22 Bird Fields, LakeshaD [address] [place] [address] Pharmacist Internal Medicine 08/27/24 documented as of this encounter
--- OUTSIDE RECORDS SUMMARY | 2025-09-12 15:19 | XMS_ITS | Encounter Summary ---
Author Organization [employer] Address [address] [place] [address] 7 [place] [address] Care Team Providers Care Checker Product Design Name Role Phone Argenis Mitchell MD Primary Care Provider [phone] Bird Fields PharmD Unavailable [phone] Reason for Visit * Reason Comments Med Refill Encounter Details Date Type Department Care Team (Late st Contact Info) Description 10/24/2024 Refill [facility] MEDICINE [address] [place], [place] [phone] Argenis Mitchell MD [address] [place] [address] Type 2 diabetes mellitus without complication, without long-term current use of insulin ([facility]) Social History Tobacco Use Types Packs/Day [...] Info) Description 11/18/2025 10:00 AM EST Telemedicine [facility] MEDICINE [address] [place] [phone] Bird Fields, PharmD [address] [place] [address] documented as of this encounter Visit Diagnoses Diagnosis Type 2 diabetes mellitus without complication, without long-term current use of insulin (HCC) documented in this encounter Additional Health Concerns Assessment Noted Time PHQ-9 Depression Total Score: 0 09/12/20 9:31 AM EDT documented as of this encounter Care Teams Checker Product Design Relationship Specialty Start Date End Date Argenis Mitchell MD [address] [place] [phone] PCP - General Family Medicine 09/10/22 Bird Fields, PharmD [address] [place] [phone] Pharmacist Internal Medicine 08/27/24 documented as of this encounter
--- OUTSIDE RECORDS SUMMARY | 2025-09-12 15:19 | XMS_ITS | Encounter Summary ---
Author Organization [employer] Address [address] [place] [address] 7 [place] [address] Care Team Providers Care Elevator Technician Name Role Phone Argenis Mitchell MD Primary Care Provider [phone] Bird Fields PharmD Unavailable [phone] Reason for Visit * Reason Comments Med Refill Encounter Details Date Type Department Care Team (Late st Contact Info) Description 12/26/2022 Refill [facility] MEDICINE [address] [place] [phone] Argenis Mitchell MD [address] [place], [place] [phone] Essential hypertension (Primary Dx) Social History Tobacco [...] Info) Description 11/18/2025 10:00 AM EST Telemedicine [facility] [address] [place], [place] [phone] Bird Fields, PharmD [address] [place] [address] documented as of this encounter Visit Diagnoses Diagnosis Essential hypertension- Primary Unspecified essential hypertension documented in this encounter Care Teams Elevator Technician Relationship Specialty Start Date End Date Argenis Mitchell MD [address] [place] [phone] PCP - General Family Medicine 09/10/22 Bird Fields, LakeshaD [address] [place] [phone] Pharmacist Internal Medicine 08/27/24 documented as of this encounter
--- OUTSIDE RECORDS SUMMARY | 2025-09-12 15:19 | XMS_ITS | Encounter Summary ---
Author Organization [employer] Address [address] [place] [address] [address] [place] [address] Care Team Providers Care Decating Machine Operator Name Role Phone Argenis iMtchell MD Primary Care Provider [phone] Bird Fields PharmD Unavailable [phone] Reason for Visit * Reason Onset Date Comments appt question 08/19/2025 Encounter Details Date Type Department Care Team (Late st Contact Info) Description 08/19/2025 Telephone [facility] MEDICINE [address] [place], [place] [phone] Argenis Mitchell MD [address] [place] [address] appt question Social History Tobacco Use Types Packs/Day Years [...] Recorded Patient Health Questionnaire-2 Score 0 09/12/2024 Internet Access Answer Date Recorded Internet Access [...] encounter Miscellaneous Notes * Telephone Encounter - Ramona Black - 08/19/2025 10:48 AM EDT Tc from pt requesting call back for clarification on appointment from 08/21, pt is wondering if he need iny blood work. Contact pt at [phone] documented in this encounter Plan of Treatment Upcoming Encounters Date Type Department Care Team (Late st Contact Info) Description 11/18/2025 10:00 AM EST Telemedicine [facility] MED[facility]INE [address] [place] [address] Bird Fields, PharmD [address] [place] [address] documented as of this encounter Visit Diagnoses Not on filedocumented in this encounter Additional Health Concerns Assessment Noted Time PHQ-9 Depression Total Score: 0 09/12/20 9:31 AM EDT documented as of this encounter Care Teams Decating Machine Operator Relationship Specialty Start Date End Date Argenis Mitchell MD [address] [place] [address] PCP - General Family Medicine 09/10/22 Bird Fields, PharmD [address] [place] [address] Pharmacist Internal Medicine 08/27/24 documented as of this encounter
--- OUTSIDE RECORDS SUMMARY | 2025-09-12 15:19 | XMS_ITS | Encounter Summary ---
Author Organization [employer] Address [address] [facility] 7[address] [place] [address] Care Team Providers Care Technical Staff Assistant Name Role Phone Argenis Mitchell MD Primary Care Provider [phone] Bird Fields PharmD Unavailable [phone] Encounter Details Date Type Department Care Team ([facility] st Contact Info) Description 04/20/2024 Telephone [facility] MEDICINE [address] [place], [place] [phone] Argenis Mitchell MD [address] [place], [place] [phone] Social History Tobacco Use Types Packs/Day Years [...] Info) Description 11/18/2025 10:00 AM EST Telemedicine [facility] MEDICINE [address] [place], [place] [phone] Bird Fields, PharmD [address] [place] [address] documented as of this encounter Visit Diagnoses Not on filedocumented in this encounter Care Teams Technical Staff Assistant Relationship Specialty Start Date End Date Argenis Mitchell MD [address] [place] [address] PCP - General Family Medicine 09/10/22 Bird Fields, PharmD [address] [place] [address] Pharmacist Internal Medicine 08/27/24 documented as of this encounter
--- OUTSIDE RECORDS SUMMARY | 2025-09-12 15:19 | XMS_ITS | Encounter Summary ---
Author Organization [employer] Address [address] [place] [address] 7 [place] [address] Care Team Providers Care Magneto Electrician Name Role Phone Argenis Mitchell MD Primary Care Provider [phone] Bird Fields PharmD Unavailable Reason for Visit * Reason Onset Date Comments waitlist 08/29/2025 Encounter Details Date Type Department Care Team (Late st Contact Info) Description 08/29/2025 Telephone [facility]ULT D[facility]AL [address] [place], [place] [phone] Сергей Segura DDS [address] [place] [address] waitlist Social History Tobacco Use Types Packs/Day Years [...] encounter Miscellaneous Notes * Telephone Encounter - Emely Tanner - 08/29/2025 8:46 AM EDT Patient called in looking to be scheduled for a new patient appointment. Explained to patient that there is a waiting list for new patient. Patient however explains that he has been on the waiting list for a while now. Patient not added to wait list in [employer]. Unsure if it was added in [employer]. Explained that I would relay information to dental department DR documented in this encounter Plan of Treatment Upcoming Encounters Date Type Department Care Team (Late st Contact Info) Description 11/18/2025 10:00 AM EST Telemedicine [facility] MEDICINE [address] [place] [address] Bird Fields, PharmD [address] [place] [address] documented as of this encounter Visit Diagnoses Not on filedocumented in this encounter Additional Health Concerns Assessment Noted Time PHQ-9 Depression Total Score: 0 09/12/20 24 9:31 AM EDT documented as of this encounter Care Teams Magneto Electrician Relationship Specialty Start Date End Date Argenis Mitchell MD [address] [place] [address] PCP - General Family Medicine 09/10/22 Bird Fields, LakeshaD [address] [place] [address] Pharmacist Internal Medicine 08/27/24 documented as of this encounter
--- OUTSIDE RECORDS SUMMARY | 2025-09-12 15:19 | XMS_ITS | Encounter Summary ---
Author Organization [facility] Address [address] [place] [address] Phone Care Team Providers Care Embalmer/Funeral Director Name Role Phone Baldomero Vega MD Primary Care Provider [phone] Yola Cruz Primary Care Provider [phone] Ellen Richardson MD Unavailable [phone] Darci Cruz MD Primary Care Provider [phone] Darci Cruz MD Primary Care Provider Argenis Mitchell MD Primary Care Provider [phone] Encounter Details Date Type Department Care Team (Late st Contact Info) Description 03/24/2018 Procedure Pass [place] Admitting Dept - Virtual Department [address] [place] [address] Social History Tobacco Use Types Packs/Day Years [...] documented as of this encounter Care Teams Embalmer/Funeral Director Relationship Specialty Start Date End Date Baldomero Vega MD [address] [place] [address] [email or web address] PCP - General 09/13/17 04/30/18 Yola Cruz PA [address] [place] [phone] PCP - General Coating Line Worker 05/01/18 09/22/21 Darci Cruz MD [address] [place] [phone] PCP - General Family Medicine 09/23/21 07/28/22 Darci Cruz MD [address] [place] [phone] PCP - General Family Medicine 07/29/22 07/15/24 Argenis Mitchell MD [address] [place] [address] PCP - General Family Medicine 07/16/24 Ellen Richardson MD [address] [place] [phone] Insurance Assigned Provider Family Medicine 10/03/19 documented as of this encounter Additional Source Comments The information contained in this document represents components of the legal health record. It is not the complete legal health record.[facility]
--- OUTSIDE RECORDS SUMMARY | 2025-09-12 15:19 | XMS_ITS | Encounter Summary ---
Author Organization [employer] Address [address] [facility] 7[address] [place] [address] Care Team Providers Care Independent Crop Consultant Name Role Phone Argenis Mitchell MD Primary Care Provider [phone] Bird Fields PharmD Unavailable [phone] Encounter Details Date Type Department Care Team (Latest Contact Info) Description 09/11/2025 Travel Social History Tobacco Use Types Packs/Day Years [...] Info) Description 11/18/2025 10:00 AM EST Telemedicine [facility] MEDICINE 230 [place] [address] Bird Fields, PharmD 230 [place] [address] documented as of this encounter Visit Diagnoses Not on filedocumented in this encounter Additional Health Concerns Assessment Noted Time PHQ-9 Depression Total Score: 0 09/12/20 24 9:31 AM EDT documented as of this encounter Care Teams Independent Crop Consultant Relationship Specialty Start Date End Date Argenis Mitchell MD [address] [place] [address] PCP - General Family Medicine 09/10/22 Bird Fields, PharmD [address] [place] [address] Pharmacist Internal Medicine 08/27/24 documented as of this encounter
--- OUTSIDE RECORDS SUMMARY | 2025-09-12 15:19 | XMS_ITS | Encounter Summary ---
Author Organization [employer] Address [address] 7[address] [place] [address] Care Team Providers Care Marine Painter Name Role Phone Argenis Mitchell MD Primary Care Provider [phone] Bird Fields PharmD Unavailable [phone] Encounter Details Date Type Department Care Team (Late st Contact Info) Description 07/05/2024 Abstract [facility] MEDICINE [address] [place], [place] [phone] Anais Warner [place] Social History Tobacco Use [...] Info) Description 11/18/2025 10:00 AM EST Telemedicine [facility] MEDICINE 230 [place] [address] Bird Fields, PharmD 230 [place] [address] documented as of this encounter Visit Diagnoses Not on filedocumented in this encounter Care Teams Marine Painter Relationship Specialty Start Date End Date Argenis Mitchell MD [address] [place] [address] PCP - General Family Medicine 09/10/22 Bird Fields, PharmD [address] [place] [address] Pharmacist Internal Medicine 08/27/24 documented as of this encounter
--- OUTSIDE RECORDS SUMMARY | 2025-09-12 15:19 | XMS_ITS | Encounter Summary ---
Author Organization [employer] Address [address] [facility] [address] [place] [address] Care Team Providers Care Machinist Mate Name Role Phone Argenis Mitchell MD Primary Care Provider [phone] Bird Fields PharmD Unavailable [phone] Encounter Details Date Type Department Care Team ([facility] st Contact Info) Description 11/29/[address] [facility] MEDICINE 230 [place], [place] [phone] Argenis Mitchell MD [address] [place], [place] [phone] Social History Tobacco Use Types Packs/Day Years [...] 11/18/2025 10:00 AM EST Telemedicine [facility] MEDICINE 230 [place], [place] [phone] Bird Fields, Darlin [address] [place], [place] [phone] documented as of this encounter Procedures Procedure Name Priority Date/Time Associated Diagnosis Comments COLONOSCOPY Routine 09/23/2021 documented in this encounter Results * (ABNORMAL) Colonoscopy (09/23/2021) Colonoscopy Abnormal(A ) Normal Argenis Mitchell MD HEALTH MAINTENANCE Final Result documented in this encounter Visit Diagnoses Not on filedocumented in this encounter Care Teams Machinist Mate Relationship Specialty Start Date End Date Argenis Mitchell MD [address] [place], [place] [phone] PCP - General Family Medicine 09/10/22 Bird Fields, PharmD [address] [place] [address] [phone] Pharmacist Internal Medicine 08/27/24 documented as of this encounter
--- OUTSIDE RECORDS SUMMARY | 2025-09-12 15:19 | XMS_ITS | Encounter Summary ---
Author Organization [facility] Address [address] [place] [address] Phone Care Team Providers Care Mushroom Spawn Maker Name Role Phone Ellen Richardson MD Unavailable [phone] Darci Cruz MD Primary Care Provider [phone] Argenis Mitchell MD Primary Care Provider [phone] Encounter Details Date Type Department Care Team (Late st Contact Info) Description 07/29/2022 Procedure Pass [facility], Ct Scan - [facility] [address] [place] [address] Social History Tobacco Use Types Packs/Day Years Used Date Smoking Tobacco: Never Smokeless Tobacco: Never Alcohol Use Standard Drinks/Week Comments Yes 0 (1 standard drink = 0.6 oz pur e alcohol) few per month Sex and Gender Information Value Date Recorded Sex Assigned at Male 07/02/2022 12:28 PM EDT Legal Sex Male 9:55 PM EDT Gender Identity Male 07/02/2022 12:28 PM EDT Sexual Orientation Straight 07/02/2022 12 :28 PM EDT documented as of this encounter Functional Status * Calculated C-SSRS Risk Score (Lifetime/Recent) Answer Date of Assessment Author No Risk Indicated 07/29/2022 11:27 AM EDT Jean Claude Dasilva ra, RN * [place] Suicide Severity Rating Scale (Screener/Recent Self-Report) Question Answer Date of Assessment Author 1. Wish to be (Past 1 Month) No 07/29/2022 11:27 AM EDT Jean Claude Livingston RN 2. Non-Specific Active Suicidal Thoughts (Past 1 Month) No 07/29/2022 11:27 AM EDT Jean Claude Livingston RN 6. Suicidal Behavior (Lifetime) No 07/29/2022 11:27 AM EDT Jean Claude Livingston RN documented as of this encounter Plan of Treatment Not on file documented as of this encounter Visit Diagnoses Not on filedocumented in this encounter Care Teams Mushroom Spawn Maker Relationship Specialty Start Date End Date Darci Cruz MD [email or web address] PCP - General Family Medicine 07/29/22 07/15/24 Argenis Mitchell MD [address] [place] [address] PCP - General Family Medicine 07/16/24 Ellen Richardson MD [email or web address] Insurance Assigned Provider Family Medicine 10/03/19 documented as of this encounter Additional Source Comments The information contained in this document represents components of the legal health record. It is not the complete legal health record.[facility]
--- OUTSIDE RECORDS SUMMARY | 2025-09-12 15:19 | XMS_ITS | Encounter Summary ---
Author Organization [facility] Address [address] [place] [address] Phone Care Team Providers Care Senior Operations Manager Name Role Phone Ellen Richardson MD Unavailable [phone] Darci Cruz MD Primary Care Provider [phone] Darci Cruz MD Primary Care Provider [phone] Argenis Mitchell MD Primary Care Provider [phone] Encounter Details Date Type Department Care Team (Late st Contact Info) Description 09/23/2021 Procedure Pass [facility] Endoscopy Admitting Dept Virtual Department [address] [place] [address] Social History Tobacco Use Types Packs/Day Years [...] on filedocumented in this encounter Care Teams Senior Operations Manager Relationship Specialty Start Date End Date Darci Cruz MD PCP - General Family Medicine 09/23/21 07/28/22 Darci Cruz MD [email or web address] PCP - General Family Medicine 07/29/22 07/15/24 Argenis Mitchell MD [address] [place] [address] PCP - General Family Medicine 07/16/24 Ellen Richardson MD [email or web address] Insurance Assigned Provider Family Medicine 10/03/19 documented as of this encounter Additional Source Comments The information contained in this document represents components of the legal health record. It is not the complete legal health record.[facility]
--- OUTSIDE RECORDS SUMMARY | 2025-09-12 15:19 | XMS_ITS | Encounter Summary ---
Author Organization [facility] Address [address] [place] [address] Phone Care Team Providers Care Staff Air Defense Officer Name Role Phone Yola Cruz Primary Care Provider [phone] Ellen Richardson MD Unavailable [phone] Darci Cruz MD Primary Care Provider [phone] Darci Cruz MD Primary Care Provider [phone] Argenis Mitchell MD Primary Care Provider [phone] Encounter Details Date Type Department Care Team (Late st Contact Info) Description 06/12/2020 Transcribe Orders Virtual Department [address] [place] [address] Aileen Roberts MD, MPH [address] [place], [place] [phone] [email or web address] Cough (Primary Dx) Social History Tobacco Use Types Packs/Day Years Used Date Smoking Tobacco: Never Smokeless Tobacco: Never Alcohol Use Standard Drinks/Week Comments Yes 0 (1 standard drink = 0.6 oz pur e alcohol) very rarely Sex and Gender Information Value Date Recorded Sex Assigned at Male 07/02/2022 12:28 PM EDT Legal Sex Male 9:55 PM EDT Gender Identity Male 07/02/2022 12:28 PM EDT Sexual Orientation Straight 07/02/2022 12 :28 PM EDT documented as of this encounter Plan of Treatment Not on file documented as of this encounter Results * COVID-19 PCR Order (06/12/2020 10:55 AM EDT) Specimen Source NASOPHARYNGEAL SWAB (PROFESSOR COMPUTER SCIENCE) [facility] COVID Testing Status In-house testing being performed [facility] Other 06/12/2020 10:5 5 AM EDT 06/12/2020 11:31 AM EDT us Aileen Roberts MD, MPH BODY FLUIDS AND STOOLS O RDERABLES Final Result Performing Organization Address City/State/[facility] Co de Phone Number [facility] [address] [place] [address] documented in this encounter Visit Diagnoses Diagnosis Cough- Primary documented in this encounter Additional Health Concerns Infection Onset Date Last Indicated Resolved Time CoV-Risk 06/12/2020 06/12/2020 06/26/2020 1:28 AM EDT CoV-Risk 06/20/2021 06/20/2021 06/30/2021 1:24 AM EDT documented as of this encounter Care Teams Staff Air Defense Officer Relationship Specialty Start Date End Date Yola Cruz PA [address] [place] [phone] PCP - General Family Court Registrar 05/01/18 09/22/21 Darci Cruz MD [address] [place] [phone] PCP - General Family Medicine 09/23/21 07/28/22 Darci Cruz MD [address] [place] [address] PCP - General Family Medicine 07/29/22 07/15/24 Argenis Mitchell MD [address] [place] [address] PCP - General Family Medicine 07/16/24 Ellen Richardson MD [address] [place] [phone] [email or web address] Insurance Assigned Provider Family Medicine 10/03/19 documented as of this encounter Additional Source Comments The information contained in this document represents components of the legal health record. It is not the complete legal health record.[facility]
--- OUTSIDE RECORDS SUMMARY | 2025-09-12 15:19 | XMS_ITS | Encounter Summary ---
Author Organization [facility] Address [address] [place] [address] Phone Care Team Providers Care Poultry Killer Name Role Phone Ellen Richardson MD Unavailable [phone] Argenis Mitchell MD Primary Care Provider [phone] Encounter Details Date Type Department Care Team (Late st Contact Info) Description 07/16/2024 Procedure Pass [facility] Endoscopy Admitting Dept Virtual Department [address] [place] [address] Social History Tobacco Use Types Packs/Day Years [...] on filedocumented in this encounter Care Teams Poultry Killer Relationship Specialty Start Date End Date Argenis Mitchell MD [address] [place] [address] PCP - General Family Medicine 07/16/24 Ellen Richardson MD [email or web address] Insurance Assigned Provider Family Medicine 10/03/19 documented as of this encounter Additional Source Comments The information contained in this document represents components of the legal health record. It is not the complete legal health record.[facility]
--- OUTSIDE RECORDS SUMMARY | 2025-09-12 15:19 | XMS_ITS | Encounter Summary ---
Author Organization [employer] Address [address] [facility] 7t [place] [address] Care Team Providers Care Tugboat Pilot Name Role Phone Argenis Mitchell MD Primary Care Provider [phone] Bird Fields PharmD Unavailable [phone] Reason for Visit * Reason Comments Med Refill Encounter Details Date Type Department Care Team (Late st Contact Info) Description 05/21/2024 Refill [facility] MEDICINE [address] [place], [place] [phone] Argenis Mitchell MD [address] [place], [place] [phone] Essential hypertension Social History Tobacco Use Types [...] Description 11/18/2025 10:00 AM EST Telemedicine [facility] MEDICINE [address] [place] [address] Bird Fields, PharmD [address] [place] [address] documented as of this encounter Visit Diagnoses Diagnosis Essential hypertension Unspecified essential hypertension documented in this encounter Care Teams Tugboat Pilot Relationship Specialty Start Date End Date Argenis Mitchell MD [address] [place] [address] [phone] PCP - General Family Medicine 09/10/22 Bird Fields, PharmD [address] [place] [address] Pharmacist Internal Medicine 08/27/24 documented as of this encounter
== END 2025-09-12 12:07 | disposition home or self-care (01) ==
LOC: HO.HHCL 12:06
PROVIDERS: Physician Assistant Medical; PCP Family Medicine; Visit Provider Family Medicine
DX: Z13.21 Encounter for screening for nutritional disorder (principal); E11.65 Type 2 diabetes mellitus with hyperglycemia; I10 Essential (primary) hypertension; R53.83 Other fatigue; G47.9 Sleep disorder, unspecified; E78.5 Hyperlipidemia, unspecified
CPT/HCPCS: 36415; 80053; 80061; 82043; 82248; 82306; 82570; 82607; 82728; 82746; 83036; 83921; 84443; 85027